=== PATIENT | female | born 1970 | race Two or more races ===

== ENCOUNTER 2020-04-18 09:40 | Outpatient (REF) | payer OTHER, SELFPAY | END 2020-04-18 09:41 | disposition home or self-care (01) | LOC: HO.LAB 09:40 | PROVIDERS: Visit Provider Internal Medicine | DX: Z20.828 Contact with and (suspected) exposure to other viral communicable diseases (principal) | CPT/HCPCS: C9803; U0003 ==

== ENCOUNTER 2020-06-21 11:12 | Emergency (ER) | payer OTHER, SELFPAY ==
[2020-06-21 11:17] VITALS: BP 153/69; PULSE 65; RESP 16; TEMP 36.4; O2SAT 99; BMI 29.2
--- NOTE | 2020-06-21 12:20 | ED.EYEPROB ---
HPI - Eye Problem General Chief complaint: Eye Problems Stated complaint: EYE ISSUE Time Seen by Provider: 06/21/20 12:07 Source: patient Mode of arrival: ambulatory Limitations: no limitations History of Present Illness HPI Narrative: Left upper eyelid swelling with redness since this morning. No eye injury or vision changes or feeling of foreign body sensation. Does not use contacts. Onset (ago): day(s) (1) Onset description: gradual Location: left eye Severity: mild Associated symptoms: none Treatments Prior to Arrival: none Related Data Home Medications Medication Instructions Recorded Confirmed ferrous sulfate 325 mg (65 mg 325 mg PO BID 05/27/20 05/27/20 iron) tablet norethindrone acetate 5 mg tablet 5 mg PO DAILY tab 05/27/20 05/27/20 simvastatin 20 mg tablet 20 mg PO QPM 05/27/20 05/27/20 Previous Rx's Medication Instructions Recorded doxycycline monohydrate 100 mg PO BID 7 Days #14 cap 06/21/20 erythromycin 0.5 inch OPHTHALMIC (EYE) QID #3.5 06/21/20 g Allergies Allergy/AdvReac Type Severity Reaction Status Date / Time No Known Allergies Allergy Verified 05/31/20 16:54 Review of Systems Review of Systems: Constitutional: No Weight loss, No Fever, No Chills, No Night Sweats, No Fatigue, No Malaise ENT/Mouth: No Hearing loss, No Ear Pain, No Nasal Congestion, No Sinus Pain, No Hoarseness, No sore throat, No Rhinorrhea, No Swallowing Difficulty Eyes: No Eye Pain, positive Swelling, No Redness, No Foreign Body, No Discharge, No Vision Changes Cardiovascular: Negative Respiratory: Negative Gastrointestinal: Negative Genitourinary: Negative Musculoskeletal: Negative Skin: No Skin Lesions, No rash Neuro: No Weakness, No Numbness, No Paresthesias, No Loss of Consciousness, No Dizziness, No Headache Psych: Negative Heme/Lymph: No Bruising, No Bleeding,No Lymphadenopathy Endocrine: No Polyuria, No Polydipsia, No Temperature Intolerance Yes all other systems are reviewed and are negative [facility] Past Medical History Medical History (Updated 06/21/20 @ 12:36 by Robert Carlson NP) Anemia Obesity (BMI 30-39.9) Pure hypercholesterolemia Uterus fibroma Surgical History (Updated 05/31/20 @ 17:01 by Ivan Arrington MD) History of mammogram Status post myomectomy (~2004) Social History Social History Alcohol intake: never Smoking Status: Never smoker Advance Directives: No Advance Directives Information Provided: No Physical Exam Vital Signs: Vital Signs: Last Vital Signs Temp 97.6 F 06/21/20 11:17 Pulse 65 06/21/20 11:17 Resp 16 06/21/20 11:17 BP 153/69 H 06/21/20 11:17 Pulse Ox 99 06/21/20 11:17 Body Mass Index 29.2 Reviewed Const: General: healthy appearing HENMT: Head: Yes normal to inspection Ears: hearing grossly normal bilaterally Eyes: Eyelids: Yes eyelid abnormality (Left upper eyelid with external stye. Slight erythema to the lid line. ) Conjunctivae: conjunctivae normal (EOM within normal limits.) Sclerae: sclerae normal Corneas: corneas normal Pupils: Equal, round and reactive pupils present EOM: EOMs intact bilaterally Direct Ophthalmoscopy: normal light reflex Neuro: Cranial nerves: Yes Equal, round and reactive pupils present Discharge Plan Discharge Clinical Impression: External hordeolum Qualifiers: Laterality: left Eyelid: upper Qualified Code(s): H00.014 - Hordeolum externum left upper eyelid Patient Disposition: Home, Self-Care Additional Instructions: Warm compresses Taking medication prescribed Return if any concerns or worsening symptoms Follow up with primary care in 1 week Thank you Prescriptions: New doxycycline monohydrate 100 mg capsule 100 mg PO BID 7 Days Qty: 14 RF: 0 erythromycin 5 mg/gram (0.5 %) ointment 0.5 inch ophthalmic (eye) QID Qty: 3.5 RF: 0 No Action simvastatin 20 mg tablet 20 mg PO QPM RF: 0 ferrous sulfate 325 mg (65 mg iron) tablet 325 mg PO BID RF: 0 norethindrone acetate 5 mg tablet 5 mg PO DAILY RF: 0 Referrals: Ivan Arrington MD [Primary Care Provider] - 1 week
== END 2020-06-21 12:58 | disposition home or self-care (01) ==
PROVIDERS: Emergency Provider Emergency Medicine; PCP Internal Medicine
DX: H00.014 Hordeolum externum left upper eyelid (principal)
CPT/HCPCS: 99283

== ENCOUNTER 2020-09-09 07:17 | Emergency (ER) | payer OTHER, SELFPAY ==
[2020-09-09 08:20] VITALS: BP 160/90; PULSE 66; RESP 18; TEMP 36.2; O2SAT 100; BMI 29.2
--- NOTE | 2020-09-09 08:29 | PC.NURSE ---
Pt LS CTA bilaterally, reports seasonal allergies, denies recent sick contact, denies COVID vaccinations, has not been tested since JUN. NAD noted. Awaiting primary eval at this time.
[2020-09-09 08:32] VITALS: O2SAT 100
[2020-09-09 08:35] VITALS: BP 150/99; PULSE 56; RESP 17; TEMP 37.2; O2SAT 100
--- NOTE | 2020-09-09 09:37 | ED_ITS ---
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 She denies fever, chills, cough, chest pain, shortness of breath, headache, sinus pain, nausea, vomiting, diarrhea. She has taken Robitussin with some relief of her symptoms. Related Data Home Medications Medication Instructions Recorded Confirmed ferrous sulfate 325 mg (65 mg 325 mg PO BID 05/27/20 05/27/20 iron) tablet norethindrone acetate 5 mg tablet 5 mg PO DAILY tab 05/27/20 05/27/20 simvastatin 20 mg tablet 20 mg PO QPM 05/27/20 05/27/20 Previous Rx's Medication Instructions Recorded doxycycline monohydrate 100 mg PO BID 7 Days #14 cap 06/21/20 erythromycin 0.5 inch OPHTHALMIC (EYE) QID #3.5 06/21/20 g Allergies Allergy/AdvReac Type Severity Reaction Status Date / Time No Known Allergies Allergy Verified 05/31/20 16:54 Review of Systems Review of Systems: Yes all other systems are reviewed and are negative [facility] Past Medical History Medical History Anemia Obesity (BMI 30-39.9) Pure hypercholesterolemia Uterus fibroma Surgical History History of mammogram Status post myomectomy (~2004) Social History Social History Alcohol intake: never Smoking Status: Never smoker Use of substances other than those prescribed or required for medical reasons: No Advance Directives: No Advance Directives Information Provided: No Physical Exam Vital Signs: Vital Signs: Last Vital Signs Temp 99.0 F 09/09/20 08:35 Pulse 56 09/09/20 08:35 Resp 17 09/09/20 08:35 BP 150/99 H 09/09/20 08:35 Pulse Ox 100 09/09/20 08:35 Body Mass Index 29.2 Const: General: cooperative, healthy appearing and comfortable Nutritional Appearance: overweight Orientation/consciousness: patient oriented x3 Limitations: language barrier (Primary Montessori Teacher used) HENMT: Head: Yes normal to inspection, Yes normocephalic and Yes atraumatic Ears: hearing grossly normal bilaterally General nose exam: Normal external nose present Face and sinus: Yes normal facial exam Mouth: Normal oral and palatal mucosa present, oropharynx normal and moist mucous membranes Throat: Yes posterior oropharynx abnormal (Erythematous), No uvula laterally displaced, No uvular edema and No cobblestoning Eyes: General: appearance normal, both eyes and all related structures Resp: Effort & Inspection: normal respiratory effort and able to speak in complete sentences Auscultation: clear to auscultation bilaterally Cardio: Rate: regular rate Rhythm: regular rhythm Skin: General skin exam: no rashes or lesions noted Neuro: General: patient oriented x3 Course Course Course Narrative: 49-year-old female with past medical history of HLD and anemia reports 2 days of dry cough, no other symptoms reported. Vital signs stable. 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 Will do rapid test, if patient is positive, she knows to take 10 days of work and she can come back to picker a note to reflect this. MDM - URI/Sore Throat Medical Records Attestation: I reviewed the patient's medical records. Lab Data Attestation: I reviewed the patient's lab results. Labs: Lab Results 09/09/20 Range/Units 09:55 COVID-19 (VIVI) Negative (Negative) COVID-19 Clin Com See Note Discharge Plan Discharge Clinical Impression: Elevated blood pressure reading Upper respiratory infection Qualifiers: URI type: unspecified viral URI Qualified Code(s): J06.9 - Acute upper respiratory infection, unspecified Patient Disposition: Home, Self-Care Instructions: COVID-19 (Coronavirus Disease 2019) (ED) Additional Instructions: Your blood pressure was elevated today, 150/99 then 160/90. As you are not on any hypertension medications are do not have a hypertension diagnosis, please follow-up with your PCP so they may investigate this further and determine if you need to initiate hypertension medications. You were tested for COVID today, if it is positive, I will write you a note for 10 days off work as you need to quarantine for 10 days. If it is negative in you are feeling better, you may return to work. Please continue to use the Robitussin as you have been using, hot tea with honey will also help soothe her throat. As discussed, if he develops a fever you cannot control with Tylenol and Motrin, developed chest pain or shortness of breath, please report back to the ER or seek emergent medical care. Prescriptions: No Action doxycycline monohydrate 100 mg capsule 100 mg PO BID 7 Days Qty: 14 RF: 0 erythromycin 5 mg/gram (0.5 %) ointment 0.5 inch ophthalmic (eye) QID Qty: 3.5 RF: 0 simvastatin 20 mg tablet 20 mg PO QPM RF: 0 ferrous sulfate 325 mg (65 mg iron) tablet 325 mg PO BID RF: 0 norethindrone acetate 5 mg tablet 5 mg PO DAILY RF: 0 Referrals: Ivan Arrington MD [Primary Care Provider] - 10 days (elevated blood pressure reading in ED without hypertension diagnosis, needs follow up) Interventions: ED Discharge Assessment Last Done: 09/09/20 09:54 Discharge Date/Time: 09/09/20 09:57 Print Language: Greenlandic
[2020-09-09 10:20] LABS: COVID-19 Test Negative (Negative)
== END 2020-09-09 09:57 | disposition home or self-care (01) ==
PROVIDERS: Physician Assistant; Emergency Provider Emergency Medicine Emergency Medical Services; PCP Internal Medicine
DX: J06.9 Acute upper respiratory infection, unspecified (principal); Z20.822 Contact with and (suspected) exposure to COVID-19; J02.9 Acute pharyngitis, unspecified; R03.0 Elevated blood-pressure reading, without diagnosis of hypertension; E78.5 Hyperlipidemia, unspecified; D64.9 Anemia, unspecified; Z79.02 Long term (current) use of antithrombotics/antiplatelets
CPT/HCPCS: 36415; 87635; 99283; 99285

== ENCOUNTER 2020-09-15 10:59 | Outpatient (REF) | payer OTHER, SELFPAY ==
[2020-09-15 11:53] LABS: MANUAL DIFF FLAG NO
[2020-09-15 11:59] LABS: Glucose Urine UA NEG (NEG); Leukocyte Esterase Urine TRACE (NEG); Nitrite Urine NEG (NEG); PH 5.5 (5.0-8.0); Specific Gravity - Urine 1.025 (1.005-1.025); UACC Culture Trigger YES; Urine Blood 2+ (NEG); Urine Ketones NEG (NEG); Urine Protein NEG (NEG-TRACE)
[2020-09-15 12:04] LABS: Appearance Urine CLEAR; Basophils Percent Auto 0.4 % (0-2); Color Urine YELLOW; Eosinophils Absolute Auto 0.1 X10*3/uL (0.0-0.4); Hematocrit 31.7 % (37-47); Hemoglobin 9.1 g/dl (12.0-16.0); Imm Gran Abs Auto 0.02 X10*3/uL (0.00-0.03); Imm Gran Pct Auto 0.3 % (0.0-0.4); Lymphocytes Percent Auto 26.8 % (20-40); Mean Corpuscular HGB Conc 28.7 g/dl (31.0-35.0); Mean Corpuscular Volume 69.8 fL (80-98); Mean Platelet Volume 10.8 fL (9.4-12.3); Monocytes Absolute Auto 0.4 X10*3/uL (0.1-1.2); Monocytes Percent Auto 5.6 % (2-11); Neutrophils Absolute Auto 4.8 X10*3/uL (2.0-8.3); Neutrophils Percent Auto 65.9 % (45-73); Platelet Count 294 X10*3/uL (160-400); Red Blood Count 4.54 X10*6/uL (4.20-5.50); Red Cell Distribution Width 17.9 % (11.0-16.0); White Blood Count 7.3 X10*3/uL (4.8-10.8)
[2020-09-15 12:33] LABS: Bacteria Urine TRACE /LPF; Squamous Epithelial Cell Urine 4+ /LPF
[2020-09-15 12:36] LABS: TSH reflex Free T4 1.47 uIU/mL (0.32-4.0)
[2020-09-15 12:39] LABS: Alanine Aminotransferase 8 U/L (0-31); Albumin Level 4.6 g/dL (3.5-5.0); Alkaline Phosphatase 69 U/L (39-117); Anion Gap 12 (12-20); Aspartate Amino Transferase 15 U/L (5-31); Bilirubin Total 0.5 mg/dL (0.0-1.0); Blood Urea Nitrogen 15 mg/dL (9-16); Calcium 9.5 mg/dL (8.4-10.2); Carbon Dioxide 24 mmol/L (22-29); Chloride 105 mmol/L (96-108); Cholesterol 238 mg/dL; Estimated Glomerular Filt Rate > 60; Glucose Fasting 87 mg/dL (60-99); HDL Cholesterol 38 mg/dL; Iron 27 mcg/dL (30-160); LDL Cholesterol Calculated 178 mg/dl; Potassium 4.6 mmol/L (3.3-5.1); Sodium 136 mmol/L (135-145); Total Protein 7.9 g/dL (6.5-8.0); Triglycerides 111 mg/dL
[2020-09-15 12:56] LABS: Percent Iron Saturation 5 % (15-50); Total Iron Binding Capacity 560 mcg/dL (228-428); Unsaturated Iron Binding 533 ug/dL
== END 2020-09-15 11:00 | disposition home or self-care (01) ==
LOC: HO.LAB 10:59
PROVIDERS: PCP Internal Medicine; Visit Provider Internal Medicine
DX: D64.9 Anemia, unspecified (principal); E78.00 Pure hypercholesterolemia, unspecified; E66.9 Obesity, unspecified
CPT/HCPCS: 36415; 80053; 80061; 81001; 81003; 83540; 84443; 85025; 87086

== ENCOUNTER 2021-05-13 12:28 | Emergency (ER) | payer OTHER, SELFPAY ==
[2021-05-13 12:45] VITALS: BP 193/86; PULSE 61; RESP 19; TEMP 36.6; O2SAT 100; BMI 29.2
[2021-05-13 19:38] LABS: COVID-19 Test Positive (Negative)
--- NOTE | 2021-05-13 19:46 | ED_ITS ---
HPI - URI/Sore Throat General Chief Complaint: Upper Respiratory Symptoms Stated Complaint: flu like symptoms Time Seen by Provider: 05/13/21 19:46 Source: patient Mode of arrival: ambulatory Limitations: no limitations History of Present Illness HPI Narrative: 50-year-old female with a history of hypercholesterolemia who presents to the ER with cough and congestion for the last few days. She lives home alone and has had no known sick contacts for COVID. She is fully vaccinated but now has not gotten her booster yet. She has a dry cough with no production of phlegm. She is not short of breath or dyspneic with exertion. She has no chest pain. She has been taking Robitussin [id number] for this with some improvement. She has no fevers. She reports some nasal congestion and postnasal drip but no sore throat. She has been eating and drinking normally. MD elicited complaint: cough and nasal congestion Onset (ago): day(s) (3) Consistency: intermittent Able to tolerate fluids by mouth: Yes Exacerbating factors: nothing Relieving factors: nothing Associated symptoms: nasal congestion and cough Treatments prior to arrival: none Related Data Home Medications Medication Instructions Recorded Confirmed norethindrone acetate 5 mg tablet 5 mg PO DAILY tab 05/27/20 12/16/20 Previous Rx's Medication Instructions Recorded simvastatin 20 mg tablet 20 mg PO QPM 90 Days #90 tab 01/20/21 ferrous sulfate 325 mg (65 mg 325 mg PO BID #60 tab 02/18/21 iron) tablet Allergies Allergy/AdvReac Type Severity Reaction Status Date / Time No Known Allergies Allergy Verified 12/16/20 12:55 Review of Systems Review of Systems: Constitutional: No Fever, No Chills ENT/Mouth: No sore throat, + Rhinorrhea, No Swallowing Difficulty Cardiovascular: No Chest Pain, No SOB, No Edema Respiratory: + Cough, No Sputum, No Wheezing, No dyspnea Gastrointestinal: No Nausea, No Vomiting, No Diarrhea, No abdominal Pain Musculoskeletal: No joint pain, No Myalgias Skin: No Skin Lesions, No rash Neuro: No Weakness, No Dizziness, + Headache Psych: + Anxiety/Panic Heme/Lymph: No Lymphadenopathy PMFSH Past Medical History Medical History Anemia Obesity (BMI 30-39.9) Pure hypercholesterolemia Uterus fibroma Surgical History History of mammogram Status post myomectomy (~2004) Family History Family History Mother Heart problem Father Heart problem Heart attack Social History Social History Housing: Apartment Alcohol intake: never Patient Tobacco Use Status: Never used Tobacco Second Hand Smoke Exposure: Yes Advance Directives: No Patient : No service: No Current occupational status: employed 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 Oriented X3. No acute distress. Eyes: Pupils equal, round and reactive to light. ENT: Pharynx normal. No tonsillar swelling or exudate Neck: Normal inspection. Neck supple. CVS: Normal heart rate and rhythm. Pulses normal. Respiratory: No respiratory distress. Breath sounds normal. Skin: Skin warm and dry. Normal skin color. Normal skin turgor. No rashes. Extremities: No lower extremity edema. NO calf tenderness Neuro: Oriented X 3. No motor deficit. No sensory deficit. Course Course Course Narrative: 50-year-old female with history of high cholesterol presents to the ER with cough and nasal congestion for the last few days. She is nontoxic appearing and is in no distress. Her sats are 98% on room air she is in no respiratory distress. Her lungs are clear. She is anxious and nervous. Her COVID-19 test is positive. You therapeutic support staff to discuss the results, management and warning signs return to the ER. Unfortunately she does not qualify for monoclonal antibodies at this time. She is hypertensive here but has no known diagnosis of hypertension. She has been taking [id number] cold and flu medications that have been known to cause high blood pressure transiently. She has no chest pain or severe headache at this time to rise concern for hypertensive emergency. Repeat blood pressure improved 180/100 and again she is asymptomatic. At this time she is stable for discharge home with supportive care for COVID as well as outpatient follow-up with her PCP. MDM - URI/Sore Throat Lab Data Labs: Lab Results 05/13/21 Range/Units 19:16 COVID-19 (VIVI) Positive A (Negative) COVID-19 Clin Com See Note Discharge Plan Discharge Clinical Impression: COVID-19 Hypertension Qualifiers: Hypertension type: unspecified Qualified Code(s): I10 - Essential (primary) hypertension Patient Disposition: Home, Self-Care Instructions: Covid-19 Viral Syndrome and Novel Coronavirus (ED) Hey/Ath Additional Instructions: You were found to be COVID-19 POSITIVE today. Your exam and oxygen levels were normal. Rest. Drink plenty of fluids. Do not go out in public for the next 10 days. Take over the counter cold/flu medications as needed for your symptoms. Take Tylenol and/or Motrin as needed for fevers and body aches. Follow up with your doctor this week. Your BP was significantly elevated today 180/100. This could be due to many things including your acute illness, being nervous about being in the hospital as well as a side effect of the cold medication you have been taking. Recommend Coricidin? HBP If you shortness of breath worsens , if you develop difficulty breathing or any other concerning symptom come back to the ER for further evaluation. Se encontr? que hoy es COVID-19 POSITIVO. Torres examen y los niveles de ox?hanna fueron normales. Descansar. Beber mucho l?quido. No salgas en p?blico pina los pr?ximos 10 d?as. [place] medicamentos de venta kapil para el resfriado / la gripe seg?n sea necesario para daniela s?ntomas. [place] Tylenol y / o Motrin seg?n sea necesario para la fiebre y los cristopher corporales. Chandrika un seguimiento con torres m?dico esta semana. Torres PA se elev? significativamente hoy 180/100. [place] podr?a deberse a muchas cosas, incluida torres enfermedad aguda, estar nervioso por estar en el hospital y un efecto secundario de la medicaci?n para el resfriado que [place] estado tomando. Si torres dificultad para respirar empeora, si presenta dificultad para respirar o cualquier otro s?ntoma preocupante, regrese a la gordo de emergencias para rebecca evaluaci?n adicional. Prescriptions: No Action simvastatin 20 mg tablet 20 mg PO QPM 90 Days Qty: 90 RF: 0 ferrous sulfate 325 mg (65 mg iron) tablet 325 mg PO BID Qty: 60 RF: 3 norethindrone acetate 5 mg tablet 5 mg PO DAILY RF: 0 Referrals: Ivan Arrington MD [Primary Care Provider] - 1 week (COVID and HTN) Stand Alone Forms: Work/School Release Print Language: Indonesian
[2021-05-13 20:24] VITALS: BP 158/93; PULSE 55; RESP 16; TEMP 37; O2SAT 99
== END 2021-05-13 20:39 | disposition home or self-care (01) ==
LOC: HO.ED 19:52
PROVIDERS: Emergency Provider Emergency Medicine Emergency Medical Services; PCP Internal Medicine
DX: U07.1 COVID-19 (principal); R05.9 Cough, unspecified; Z79.899 Other long term (current) drug therapy
CPT/HCPCS: 36415; 87635; 99283; 99284

== ENCOUNTER 2021-06-14 06:21 | Outpatient (REF) | payer OTHER, SELFPAY ==
[2021-06-14 06:43] LABS: MANUAL DIFF FLAG NO
[2021-06-14 07:36] LABS: Estimated Average Glucose 85 mg/dL; Hemoglobin A1c % 4.6 %
[2021-06-14 07:41] LABS: Basophils Percent Auto 0.5 % (0-2); Hematocrit 27.4 % (37.0-47.0); Imm Gran Abs Auto 0.02 X10*3/uL (0.00-0.03); Imm Gran Pct Auto 0.5 % (0.0-0.4); Lymphocytes Absolute Auto 1.3 X10*3/uL (1.2-4.9); Lymphocytes Percent Auto 32.4 % (20-40); Mean Corpuscular HGB Conc 29.2 g/dl (31.0-35.0); Mean Corpuscular Hemoglobin 24.2 pg (27.0-33.0); Mean Platelet Volume 10.5 fL (9.4-12.3); Monocytes Absolute Auto 0.4 X10*3/uL (0.1-1.2); Monocytes Percent Auto 8.7 % (2-11); Neutrophils Absolute Auto 2.4 x10*3/uL (2.0-8.3); Neutrophils Percent Auto 56.9 % (45-73); Platelet Count 246 X10*3/uL (160-400); Red Cell Distribution Width 17.5 % (11.0-16.0); White Blood Count 4.1 X10*3/uL (4.8-10.8)
[2021-06-14 07:52] LABS: Alanine Aminotransferase 10 U/L (0-31); Albumin Level 4.1 g/dL (3.5-5.0); Alkaline Phosphatase 52 U/L (39-117); Anion Gap 11 (12-20); Aspartate Amino Transferase 18 U/L (5-31); Bilirubin Total 0.3 mg/dL (0.0-1.0); Blood Urea Nitrogen 15 mg/dL (9-16); Calcium 9.4 mg/dL (8.4-10.2); Carbon Dioxide 25 mmol/L (22-29); Chloride 107 mmol/L (96-108); Cholesterol 140 mg/dL; Estimated Glomerular Filt Rate > 60; Glucose Fasting 85 mg/dL (60-99); HDL Cholesterol 29 mg/dL; LDL Cholesterol Calculated 83 mg/dl; Potassium 4.5 mmol/L (3.3-5.1); Sodium 138 mmol/L (135-145); Total Protein 6.8 g/dL (6.5-8.0); Triglycerides 140 mg/dL
[2021-06-14 08:16] LABS: TSH reflex Free T4 2.16 uIU/mL (0.32-4.0)
[2021-06-14 08:32] LABS: Folate 16.9 ng/mL (> or = 4.0); Vitamin B12 243 pg/mL (200-900)
[2021-06-18 13:46] LABS: Vitamin D 25-OH, D2 <4 ng/mL; Vitamin D 25-OH, D3 21 ng/mL; Vitamin D 25-OH, Total 21 ng/mL (30-100)
== END 2021-06-14 06:22 | disposition home or self-care (01) ==
LOC: HO.LAB 06:21
PROVIDERS: PCP Internal Medicine; Visit Provider Nurse Practitioner Acute Care
DX: E66.9 Obesity, unspecified (principal); I10 Essential (primary) hypertension
CPT/HCPCS: 36415; 80053; 80061; 82306; 82607; 82746; 83036; 84443; 85025

== ENCOUNTER → 2021-08-05 11:34 | Outpatient (BNVA) | payer OTHER, SELFPAY | PROVIDERS: PCP Internal Medicine; Referring Provider Internal Medicine; Visit Provider Nurse Practitioner | DX: Z12.11 Encounter for screening for malignant neoplasm of colon (principal) ==

== ENCOUNTER 2022-07-01 17:24 | Emergency (ER) | payer OTHER, SELFPAY ==
--- NOTE | ~2022-07-01 | CT_ITS ---
EXAMINATION: CT HEAD WITHOUT CONTRAST CLINICAL INFORMATION: Headache high blood pressure COMPARISON: None TECHNIQUE: Contiguous axial imaging was performed from the skull base to vertex without intravenous administration of contrast. This CT examination was performed using dose optimization techniques as appropriate, variously including the following: *Automated exposure control *Adjustment of mA and/or kV according to patient size (this includes techniques or standardized protocols for targeted exams where dose is matched to indication/reason for exam; i.e. extremities or head) *Use of iterative reconstruction technique DLP: 623 mGy-cm FINDINGS: There is no evidence of acute intracranial hemorrhage or territorial infarction. No abnormal mass effect or midline shift is seen. Wells to white matter differentiation is well preserved. No extra-axial fluid collections are identified. The ventricles are normal in size. No abnormal attenuation in the brain parenchyma. No acute calvarial fracture.. Paranasal sinuses and mastoid air cells are well-aerated. CT/CT head/brain wo IV con IMPRESSION: No CT evidence of acute intracranial process.
--- NOTE | ~2022-07-01 | XR_ITS ---
EXAMINATION: XR CHEST CLINICAL INFORMATION: High blood pressure COMPARISON: X-ray 04/06/2016 TECHNIQUE: 2 views of the chest were obtained. FINDINGS: Cardiomediastinal size is within normal limits, allowing for position/technique. Slight elevation right hemidiaphragm. Lungs are clear. No focal consolidation, effusion, edema or pneumothorax. Thoracic spine degeneration. XR/XR chest 2V IMPRESSION: No acute pulmonary process seen.
[2022-07-01 18:25] VITALS: BP 177/92; PULSE 70; RESP 18; TEMP 36.6; O2SAT 100; BMI 30.9
--- NOTE | 2022-07-01 18:28 | ED.HA ---
HPI - Headache General Chief Complaint: Headache <SHANTELL Metzger - Last Filed: 07/01/22 18:32> Stated Complaint: Headache <SHANTELL Metzger - Last Filed: 07/01/22 18:32> Time Seen by Provider: 07/02/22 00:57 <SHANTELL Metzger - Last Filed: 07/01/22 18:32> Source: patient, family, RN notes reviewed and old records reviewed <Viktor Waite - Last Filed: 07/02/22 01:35> Mode of arrival: ambulatory <Viktor Waite - Last Filed: 07/02/22 01:35> Limitations: no limitations (Patient was offered interpreting services but declined) <Viktor Waite - Last Filed: 07/02/22 01:35> History of Present Illness HPI Narrative: 51-year-old female presents for evaluation of headache. She reports her headache started 2 days ago. She states that she feels pain constantly in the center of her forehead and in the back of her head. The pain is at worst a 10. She took some ibuprofen with minimal relief She denies any visual changes, nausea, vomiting, lightheadedness or dizziness. Denies any trauma to the head or neck. Denies any fevers, chills or neck pain. She reports that she started a new medication which she shows me to be hydrochlorothiazide 12.5 mg on the day that her headache started She is unsure if this is related. She denies any history of migraine headaches <Viktor Waite - Last Filed: 07/02/22 01:35> Related Data Home Medications: Home Medications Medication Instructions Recorded Confirmed norethindrone acetate 5 mg tablet 5 mg PO DAILY 05/27/20 06/15/21 Previous Rx's Medication Instructions Recorded ferrous sulfate 325 mg (65 mg 325 mg PO BID #60 tabs 06/01/21 iron) tablet simvastatin 20 mg tablet 20 mg PO QPM 90 days #90 tabs 06/01/21 albuterol sulfate 90 mcg/actuation 2 inh inhalation Q4-6H PRN 06/15/21 breath activated powder inhaler shortness of breath or wheezing #1 ea benzonatate 100 mg capsule 100 mg PO BID PRN cough #30 caps 06/15/21 cholecalciferol (vitamin D3) 50 50 mcg PO DAILY #30 caps 06/18/21 mcg (2,000 unit) capsule peg 3350-electrolytes 236 240 ml PO Q10M 1 day #4,000 mL 08/05/21 gram-22.74 gram-6.74 gram-5.86 gram solution (Golytely) hydrochlorothiazide 12.5 mg tablet 12.5 mg PO BID #60 tabs 02/17/22 nyrgixtegv-qzditvpauypuh-qgulejzc 1 cap PO TID PRN headache #15 caps 07/02/22 50 mg-300 mg-40 mg capsule (Fioricet) <SHANTELL Metzger - Last Filed: 07/01/22 18:32> Allergies/Adverse Reactions: Allergies Allergy/AdvReac Type Severity Reaction Status Date / Time No Known Allergies Allergy Verified 07/01/22 18:25 <SHANTELL Metzger - Last Filed: 07/01/22 18:32> Review of Systems Constitutional: Constitutional: Reports as per HPI, Denies chills, Denies fatigue and Reports headache(s) <Viktor Waite - Last Filed: 07/02/22 01:35> ENT: Reports headache(s) <Viktor Waite - Last Filed: 07/02/22 01:35> Cardiovascular: Cardiovascular: Denies chest pain and Denies dyspnea <Viktor Waite - Last Filed: 07/02/22 01:35> Respiratory: Respiratory: Denies cough and Denies dyspnea <Viktor Waite - Last Filed: 07/02/22 01:35> Gastrointestinal: Gastrointestinal: Denies abdominal pain, Denies constipation and Denies vomiting <Viktor Waite - Last Filed: 07/02/22 01:35> Genitourinary: Genitourinary: Denies dysuria <Viktor Waite - Last Filed: 07/02/22 01:35> Neurologic: Denies Abnormal speech present and Reports headache(s) <Viktor Waite - Last Filed: 07/02/22 01:35> Endocrine: Endocrine: Denies fatigue <Viktor Waite - Last Filed: 07/02/22 01:35> [facility] Past Medical History Attestation statement: The following information was validated with the patient. <Viktor Vasquez Last Filed: 07/02/22 01:35> Source: old records reviewed and nursing notes reviewed <Viktor Waite - Last Filed: 07/02/22 01:35> Medical History: Medical History Anemia Obesity (BMI 30-39.9) Pure hypercholesterolemia Uterus fibroma <SHANTELL Metzger - Last Filed: 07/01/22 18:32> Surgical History: Surgical History History of mammogram Status post myomectomy (~2004) <SHANTELL Metzger - Last Filed: 07/01/22 18:32> Family History Family History: Family History Mother Heart problem Father Heart problem Heart attack <SHANTELL Metzger - Last Filed: 07/01/22 18:32> Social History Social History: Social History Housing: Apartment Alcohol intake: never Patient Tobacco Use Status: Never used Tobacco e-Cigarette/Vaping Use: Never Used Second Hand Smoke Exposure: Yes Advance Directives: No Advance Directives Information Provided: No service: No Current occupational status: employed 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 Cognitive needs: No Hearing needs: No Vision needs: No <SHANTELL Metzger - Last Filed: 07/01/22 18:32> Physical Exam Vital Signs: Vital Signs: Last Vital Signs Temp 97.2 F 07/01/22 23:42 Pulse 100 07/01/22 23:42 Resp 18 07/01/22 23:42 BP 178/101 H 07/01/22 23:42 Pulse Ox 100 07/01/22 23:42 O2 Del Method 07/01/22 23:42 BMI result Body Mass Index 30.9 <SHANTELL Metzger - Last Filed: 07/01/22 18:32> Vital Signs: Last Vital Signs Temp 97.2 F 07/01/22 23:42 Pulse 100 07/01/22 23:42 Resp 18 07/01/22 23:42 BP 178/101 H 07/01/22 23:42 Pulse Ox 100 07/01/22 23:42 O2 Del Method 07/01/22 23:42 BMI result Body Mass Index 30.9 < Last Filed: 07/02/22 01:35> Const: General: healthy appearing, comfortable, no acute distress and well developed < Last Filed: 07/02/22 01:35> Orientation/consciousness: patient oriented x3 < Last Filed: 07/02/22 01:35> HEENT: Head: Yes normocephalic, Yes atraumatic and No Temporal artery tenderness present < Last Filed: 07/02/22 01:35> Eyes: Eyelids: Yes eyelids normal < Last Filed: 07/02/22 01:35> Conjunctivae: conjunctivae normal < Last Filed: 07/02/22 01:35> Sclerae: sclerae normal < Last Filed: 07/02/22 01:35> Corneas: corneas normal < Last Filed: 07/02/22 01:35> Pupils: Equal, round and reactive pupils present and Pupil accommodation reflex normal < Last Filed: 07/02/22 01:35> EOM: EOMs intact bilaterally < Last Filed: 07/02/22 01:35> Neck: Neck: Yes full ROM, Yes no lymphadenopathy and Yes no meningeal signs < Last Filed: 07/02/22 01:35> Resp: Effort & Inspection: normal respiratory effort and able to speak in complete sentences < Last Filed: 07/02/22 01:35> Auscultation: clear to auscultation bilaterally < Last Filed: 07/02/22 01:35> Cardio: Rate: regular rate < Last Filed: 07/02/22 01:35> Rhythm: regular rhythm < Last Filed: 07/02/22 01:35> GI: Inspection: No Abdominal wall edema and No distended <Viktor OOverton - Last Filed: 07/02/22 01:35> Palpation (GI): Soft to palpation, nontender and no guarding <Viktor OOverton - Last Filed: 07/02/22 01:35> Neuro: General: patient oriented x3 and no meningeal signs <Viktor Overton - Last Filed: 07/02/22 01:35> Cranial nerves: Yes CN's II-XII intact bilaterally and Yes Equal, round and reactive pupils present <Viktor YeimiOverton - Last Filed: 07/02/22 01:35> Cognition (Neuro): normal cognition <Viktor OOverton - Last Filed: 07/02/22 01:35> Speech: No Abnormal speech present <Overton - Last Filed: 07/02/22 01:35> Motor exam (neuro): Pronator motor function not present <Viktor OPancho - Last Filed: 07/02/22 01:35> Coordination: [id number]-rq-qqkc test normal <Viktor YeimiPancho - Last Filed: 07/02/22 01:35> Romberg Test: Negative <Viktor O Last Filed: 07/02/22 01:35> Course Course Course Narrative: RME-18:30PM 51yoF HLD, was recently diagnosed with high blood pressure and started on hydrochlorothiazide on after she went to [facility] for headache and was noted to have high blood pressure was presenting to the ER with complaints of a headache to the frontal aspect of her head that radiates to the hospital aspect of her head. Reports that it makes her eyes water. Otherwise she denies any dizziness, change in vision, jaw pain, nausea/vomiting, paresthesias, weakness, chest pain or shortness of breath or any other symptoms complaints or concerns at this time Plan: Will obtain lab, , EKG, chest x-ray and CT scan of brain. To be sent to the waiting room to be evaluated in the ED. <SHANTELL Metzger - Last Filed: 07/01/22 18:32> Medical Decision Making Medical Decision Making MDM Narrative: 51-year-old female normal-appearing complains of headache x2 days. Her headache started today she started taking a new medication of hydrochlorothiazide. Is possible that her headaches related to this medication. She has no neurologic deficits. No tonsillar CT scan is normal per who does not lateralize, she has no temporal tenderness, less likely temporal arteritis. With the patient's son was with 2-[address] here so she will not be given a dose in the ER. she will follow-up with her primary doctor. The patient has no fevers, negative meningeal signs, no suspicion for infectious etiology or symptoms. <Viktor Waite - Last Filed: 07/02/22 01:35> Differential Diagnosis Acute headache Tension headache Cluster headache next item migraine headache Temporal arteritis Intracranial mass CVA less likely Intracranial hemorrhage Medication side effect <Viktor Waite - Last Filed: 07/02/22 01:35> Lab Data MDM Lab Attestation statement: I reviewed the patient's lab results. <Viktor Waite - Last Filed: 07/02/22 01:35> Result Diagrams: 07/01/22 19:09 07/01/22 19:09 <SHANTELL Metzger - Last Filed: 07/01/22 18:32> Labs: Lab Results 07/01/22 07/01/22 07/01/22 Range/Units 19:09 19:09 19:09 WBC 5.2 (4.8-10.8) X10*3/uL RBC 4.58 D (4.20-5.50) X10*6/uL Hgb 10.9 L D (12.0-16.0) g/dl Hct 35.7 L D (37.0-47.0) % MCV 77.9 L (80.0-98.0) fL MCH 23.8 L (27.0-33.0) pg MCHC 30.5 L (31.0-35.0) g/dl RDW 18.2 H (11.0-16.0) % Plt Count 233 (160-400) X10*3/uL MPV 9.7 (9.4-12.3) fL Immature Gran % (Auto) 0.2 (0.0-0.4) % Neut % (Auto) 51.7 (45-73) % Lymph % (Auto) 39.0 (20-40) % Faulk % (Auto) 7.7 (2-11) % Eos % (Auto) 0.8 (0-4) % Baso % (Auto) 0.6 (0-2) % Lymph # (Auto) 2.0 (1.2-4.9) X10*3/uL Faulk # (Auto) 0.4 (0.1-1.2) X10*3/uL Eos # (Auto) 0.0 (0.0-0.4) X10*3/uL Baso # (Auto) 0.0 (0.0-0.2) X10*3/uL Abs Immat Gran (auto) 0.01 (0.00-0.03) X10*3/uL Absolute Neuts (auto) 2.7 (2.0-8.3) x10*3/uL Absolute Nucleated RBC 0.000 (0.0-0.012) X10*3/uL Nucleated RBC % (auto) 0.0 (0.0-0.2) /100WBC PT 11.3 (10.0-13.1) SEC INR 1.0 (0.9-1.1) Sodium 139 (135-145) mmol/L Potassium 4.4 (3.3-5.1) mmol/L Chloride 103 (96-108) mmol/L Carbon Dioxide 26 (22-29) mmol/L Anion Gap 14 (12-20) BUN 22 H (9-16) mg/dL Creatinine 1.04 (0.5-1.4) mg/dL Estim Creat Clear Calc 65.4 Estimated GFR 56 Random Glucose 100 (60-115) mg/dL Calcium 9.9 (8.4-10.2) mg/dL Magnesium 1.7 (1.6-2.6) mg/dL Total Bilirubin 0.3 (0.0-1.0) mg/dL AST 30 (5-31) U/L ALT 34 H (0-31) U/L Alkaline Phosphatase 99 (39-117) U/L Total Protein 7.7 (6.5-8.0) g/dL Albumin 4.6 (3.5-5.0) g/dL Urine Color Urine Appearance Urine pH (5.0-9.0) Ur Specific [place] (1.005-1.025) Urine Protein (Neg-Trace) mg/dL Urine Glucose (UA) (Negative) mg/dL Urine Ketones (Negative) mg/dL Urine Blood (Negative) Urine Nitrite (Negative) Ur Leukocyte Esterase (Negative) Urine RBC (0-2) /HPF Urine WBC (0-5) /HPF Ur Squamous Epith Cells (0-2) /HPF Urine Bacteria (None Seen) Hyaline Casts (0-2) /LPF Influenza Type A (PCR) (Negative) Influenza Type B (PCR) (Negative) RSV RNA Qual (PCR) (Negative) SARS-CoV-2 RNA (RT-PCR) (Negative) 07/01/22 07/01/22 Range/Units 19:09 19:09 WBC (4.8-10.8) X10*3/uL RBC (4.20-5.50) X10*6/uL Hgb (12.0-16.0) g/dl Hct (37.0-47.0) % MCV (80.0-98.0) fL MCH (27.0-33.0) pg MCHC (31.0-35.0) g/dl RDW (11.0-16.0) % Plt Count (160-400) X10*3/uL MPV (9.4-12.3) fL Immature Gran % (Auto) (0.0-0.4) % Neut % (Auto) (45-73) % Lymph % (Auto) (20-40) % Faulk % (Auto) (2-11) % Eos % (Auto) (0-4) % Baso % (Auto) (0-2) % Lymph # (Auto) (1.2-4.9) X10*3/uL Faulk # (Auto) (0.1-1.2) X10*3/uL Eos # (Auto) (0.0-0.4) X10*3/uL Baso # (Auto) (0.0-0.2) X10*3/uL Abs Immat Gran (auto) (0.00-0.03) X10*3/uL Absolute Neuts (auto) (2.0-8.3) x10*3/uL Absolute Nucleated RBC (0.0-0.012) X10*3/uL Nucleated RBC % (auto) (0.0-0.2) /100WBC PT (10.0-13.1) SEC INR (0.9-1.1) Sodium (135-145) mmol/L Potassium (3.3-5.1) mmol/L Chloride (96-108) mmol/L Carbon Dioxide (22-29) mmol/L Anion Gap (12-20) BUN (9-16) mg/dL Creatinine (0.5-1.4) mg/dL Estim Creat Clear Calc Estimated GFR Random Glucose (60-115) mg/dL Calcium (8.4-10.2) mg/dL Magnesium (1.6-2.6) mg/dL Total Bilirubin (0.0-1.0) mg/dL AST (5-31) U/L ALT (0-31) U/L Alkaline Phosphatase (39-117) U/L Total Protein (6.5-8.0) g/dL Albumin (3.5-5.0) g/dL Urine Color Yellow Urine Appearance Clear Urine pH 6.0 (5.0-9.0) Ur Specific [place] 1.025 (1.005-1.025) Urine Protein Negative (Neg-Trace) mg/dL Urine Glucose (UA) Negative (Negative) mg/dL Urine Ketones Negative (Negative) mg/dL Urine Blood Negative (Negative) Urine Nitrite Negative (Negative) Ur Leukocyte Esterase Small (1+) H (Negative) Urine RBC 0-2 (0-2) /HPF Urine WBC 0-5 (0-5) /HPF Ur Squamous Epith Cells 0-2 (0-2) /HPF Urine Bacteria None Seen (None Seen) Hyaline Casts 0-2 (0-2) /LPF Influenza Type A (PCR) NEGATIVE (Negative) Influenza Type B (PCR) NEGATIVE (Negative) RSV RNA Qual (PCR) NEGATIVE (Negative) SARS-CoV-2 RNA (RT-PCR) NEGATIVE (Negative) <SHANTELL Metzger - Last Filed: 07/01/22 18:32> Lab Results 07/01/22 07/01/22 07/01/22 Range/Units 19:09 19:09 19:09 WBC 5.2 (4.8-10.8) X10*3/uL RBC 4.58 D (4.20-5.50) X10*6/uL Hgb 10.9 L D (12.0-16.0) g/dl Hct 35.7 L D (37.0-47.0) % MCV 77.9 L (80.0-98.0) fL MCH 23.8 L (27.0-33.0) pg MCHC 30.5 L (31.0-35.0) g/dl RDW 18.2 H (11.0-16.0) % Plt Count 233 (160-400) X10*3/uL MPV 9.7 (9.4-12.3) fL Immature Gran % (Auto) 0.2 (0.0-0.4) % Neut % (Auto) 51.7 (45-73) % Lymph % (Auto) 39.0 (20-40) % Faulk % (Auto) 7.7 (2-11) % Eos % (Auto) 0.8 (0-4) % Baso % (Auto) 0.6 (0-2) % Lymph # (Auto) 2.0 (1.2-4.9) X10*3/uL Faulk # (Auto) 0.4 (0.1-1.2) X10*3/uL Eos # (Auto) 0.0 (0.0-0.4) X10*3/uL Baso # (Auto) 0.0 (0.0-0.2) X10*3/uL Abs Immat Gran (auto) 0.01 (0.00-0.03) X10*3/uL Absolute Neuts (auto) 2.7 (2.0-8.3) x10*3/uL Absolute Nucleated RBC 0.000 (0.0-0.012) X10*3/uL Nucleated RBC % (auto) 0.0 (0.0-0.2) /100WBC PT 11.3 (10.0-13.1) SEC INR 1.0 (0.9-1.1) Sodium 139 (135-145) mmol/L Potassium 4.4 (3.3-5.1) mmol/L Chloride 103 (96-108) mmol/L Carbon Dioxide 26 (22-29) mmol/L Anion Gap 14 (12-20) BUN 22 H (9-16) mg/dL Creatinine 1.04 (0.5-1.4) mg/dL Estim Creat Clear Calc 65.4 Estimated GFR 56 Random Glucose 100 (60-115) mg/dL Calcium 9.9 (8.4-10.2) mg/dL Magnesium 1.7 (1.6-2.6) mg/dL Total Bilirubin 0.3 (0.0-1.0) mg/dL AST 30 (5-31) U/L ALT 34 H (0-31) U/L Alkaline Phosphatase 99 (39-117) U/L Total Protein 7.7 (6.5-8.0) g/dL Albumin 4.6 (3.5-5.0) g/dL Urine Color Urine Appearance Urine pH (5.0-9.0) Ur Specific [place] (1.005-1.025) Urine Protein (Neg-Trace) mg/dL Urine Glucose (UA) (Negative) mg/dL Urine Ketones (Negative) mg/dL Urine Blood (Negative) Urine Nitrite (Negative) Ur Leukocyte Esterase (Negative) Urine RBC (0-2) /HPF Urine WBC (0-5) /HPF Ur Squamous Epith Cells (0-2) /HPF Urine Bacteria (None Seen) Hyaline Casts (0-2) /LPF Influenza Type A (PCR) (Negative) Influenza Type B (PCR) (Negative) RSV RNA Qual (PCR) (Negative) SARS-CoV-2 RNA (RT-PCR) (Negative) 07/01/22 07/01/22 Range/Units 19:09 19:09 WBC (4.8-10.8) X10*3/uL RBC (4.20-5.50) X10*6/uL Hgb (12.0-16.0) g/dl Hct (37.0-47.0) % MCV (80.0-98.0) fL MCH (27.0-33.0) pg MCHC (31.0-35.0) g/dl RDW (11.0-16.0) % Plt Count (160-400) X10*3/uL MPV (9.4-12.3) fL Immature Gran % (Auto) (0.0-0.4) % Neut % (Auto) (45-73) % Lymph % (Auto) (20-40) % Faulk % (Auto) (2-11) % Eos % (Auto) (0-4) % Baso % (Auto) (0-2) % Lymph # (Auto) (1.2-4.9) X10*3/uL Faulk # (Auto) (0.1-1.2) X10*3/uL Eos # (Auto) (0.0-0.4) X10*3/uL Baso # (Auto) (0.0-0.2) X10*3/uL Abs Immat Gran (auto) (0.00-0.03) X10*3/uL Absolute Neuts (auto) (2.0-8.3) x10*3/uL Absolute Nucleated RBC (0.0-0.012) X10*3/uL Nucleated RBC % (auto) (0.0-0.2) /100WBC PT (10.0-13.1) SEC INR (0.9-1.1) Sodium (135-145) mmol/L Potassium (3.3-5.1) mmol/L Chloride (96-108) mmol/L Carbon Dioxide (22-29) mmol/L Anion Gap (12-20) BUN (9-16) mg/dL Creatinine (0.5-1.4) mg/dL Estim Creat Clear Calc Estimated GFR Random Glucose (60-115) mg/dL Calcium (8.4-10.2) mg/dL Magnesium (1.6-2.6) mg/dL Total Bilirubin (0.0-1.0) mg/dL AST (5-31) U/L ALT (0-31) U/L Alkaline Phosphatase (39-117) U/L Total Protein (6.5-8.0) g/dL Albumin (3.5-5.0) g/dL Urine Color Yellow Urine Appearance Clear Urine pH 6.0 (5.0-9.0) Ur Specific [place] 1.025 (1.005-1.025) Urine Protein Negative (Neg-Trace) mg/dL Urine Glucose (UA) Negative (Negative) mg/dL Urine Ketones Negative (Negative) mg/dL Urine Blood Negative (Negative) Urine Nitrite Negative (Negative) Ur Leukocyte Esterase Small (1+) H (Negative) Urine RBC 0-2 (0-2) /HPF Urine WBC 0-5 (0-5) /HPF Ur Squamous Epith Cells 0-2 (0-2) /HPF Urine Bacteria None Seen (None Seen) Hyaline Casts 0-2 (0-2) /LPF Influenza Type A (PCR) NEGATIVE (Negative) Influenza Type B (PCR) NEGATIVE (Negative) RSV RNA Qual (PCR) NEGATIVE (Negative) SARS-CoV-2 RNA (RT-PCR) NEGATIVE (Negative) <Viktor Waite - Last Filed: 07/02/22 01:35> Radiology Impression Discussion of test interpretation with radiology: I have reviewed the radiologist's reading. <Viktor Waite - Last Filed: 07/02/22 01:35> Discharge Plan Discharge Clinical Impression: Acute headache <SHANTELL Metzger - Last Filed: 07/01/22 18:32> Patient Disposition: Home, Self-Care <SHANTELL Metzger - Last Filed: 07/01/22 18:32> Instructions: Acute Headache (ED) <SHANTELL Metzger - Last Filed: 07/01/22 18:32> Additional Instructions: Your workup in the emergency department was reassuring. You may take Fioricet as needed for any further headaches. It is possible that her headaches are related to the medication he started on the day of your headache. Talked to your primary doctor about this. Your CT scan was reassuring, yearly blood work was within normal limits <SHANTELL Metzger - Last Filed: 07/01/22 18:32> Prescriptions: New tjdllxihzm-ervbufzzgnllb-epfm [Fioricet] 50-300-40 mg capsule 1 cap PO TID PRN (Reason: headache) Qty: 15 0RF No Action cholecalciferol (vitamin D3) 50 mcg (2,000 unit) capsule 50 mcg PO DAILY Qty: 30 0RF hydrochlorothiazide 12.5 mg tablet 12.5 mg PO BID Qty: 60 0RF norethindrone acetate 5 mg tablet 5 mg PO DAILY simvastatin 20 mg tablet 20 mg PO QPM 90 Days Qty: 90 0RF ferrous sulfate 325 mg (65 mg iron) tablet 325 mg PO BID Qty: 60 3RF benzonatate 100 mg capsule 100 mg PO BID PRN (Reason: cough) Qty: 30 0RF albuterol sulfate 90 mcg/actuation aerosol powdr breath activated 2 inh inhalation Q4-6H PRN (Reason: shortness of breath or wheezing) Qty: 1 0RF peg 3350-electrolytes [Golytely] 236-22.74-6.74 -5.86 gram recon soln 240 ml PO Q10M 1 Days Qty: 4000 0RF Rx Instructions: until fecal effluent is clear; do not exceed a total volume of 2,000 mL <SHANTELL Metzger - Last Filed: 07/01/22 18:32>
--- NOTE | 2022-07-01 18:29 | ECG_ITS ---
Test Reason : headache/ high bp Blood Pressure : / mmHG Vent. Rate : 059 BPM Atrial Rate : 059 BPM P-R Int : 130 ms QRS Dur : 088 ms QT Int : 406 ms P-R-T Axes : 033 000 019 degrees QTc Int : 401 ms Sinus bradycardia Otherwise normal ECG When compared with ECG of 14-AUG-2018 08:56, No significant change was found Referred By: Ivonne Rodriguez Electronically Signed By:Chris Hall
[2022-07-01 19:15] LABS: MANUAL DIFF FLAG NO
[2022-07-01 19:17] LABS: Basophils Percent Auto 0.6 % (0-2); Eosinophils Percent Auto 0.8 % (0-4); Hematocrit 35.7 % (37.0-47.0); Hemoglobin 10.9 g/dl (12.0-16.0); Imm Gran Abs Auto 0.01 X10*3/uL (0.00-0.03); Imm Gran Pct Auto 0.2 % (0.0-0.4); Mean Corpuscular HGB Conc 30.5 g/dl (31.0-35.0); Mean Corpuscular Hemoglobin 23.8 pg (27.0-33.0); Mean Corpuscular Volume 77.9 fL (80.0-98.0); Mean Platelet Volume 9.7 fL (9.4-12.3); Monocytes Absolute Auto 0.4 X10*3/uL (0.1-1.2); Monocytes Percent Auto 7.7 % (2-11); Neutrophils Absolute Auto 2.7 x10*3/uL (2.0-8.3); Neutrophils Percent Auto 51.7 % (45-73); Platelet Count 233 X10*3/uL (160-400); Red Blood Count 4.58 X10*6/uL (4.20-5.50); Red Cell Distribution Width 18.2 % (11.0-16.0); White Blood Count 5.2 X10*3/uL (4.8-10.8)
[2022-07-01 19:22] LABS: Appearance Urine Clear; Color Urine Yellow; Glucose Urine UA Negative (Negative); Leukocyte Esterase Urine Small (1+) (Negative); Nitrite Urine Negative (Negative); Specific Gravity - Urine 1.025 (1.005-1.025); UMIC TRIGGER UACC YES; Urine Blood Negative (Negative); Urine Ketones Negative (Negative); Urine Protein Negative (Neg-Trace)
[2022-07-01 19:33] LABS: Alanine Aminotransferase 34 U/L (0-31); Albumin Level 4.6 g/dL (3.5-5.0); Alkaline Phosphatase 99 U/L (39-117); Anion Gap 14 (12-20); Aspartate Amino Transferase 30 U/L (5-31); Bilirubin Total 0.3 mg/dL (0.0-1.0); Blood Urea Nitrogen 22 mg/dL (9-16); Calcium 9.9 mg/dL (8.4-10.2); Carbon Dioxide 26 mmol/L (22-29); Chloride 103 mmol/L (96-108); Creatinine Clr Calc Pharmacy 65.4; Estimated Glomerular Filt Rate 56; Glucose Random 100 mg/dL (60-115); Magnesium 1.7 mg/dL (1.6-2.6); Potassium 4.4 mmol/L (3.3-5.1); Prothrombin Time 11.3 SEC (10.0-13.1); Sodium 139 mmol/L (135-145); Total Protein 7.7 g/dL (6.5-8.0)
[2022-07-01 19:43] LABS: Bacteria Urine None Seen (None Seen); Hyaline Casts Urine 0-2 /LPF (0-2); RBC Urine 0-2 /HPF (0-2); Squamous Epithelial Cell Urine 0-2 /HPF (0-2); UACC Culture Trigger YES; WBC Urine 0-5 /HPF (0-5)
[2022-07-01 19:52] LABS: Influenza A PCR NEGATIVE (Negative); Influenza B PCR NEGATIVE (Negative); Resp Syncy Virus RNA Qual PCR NEGATIVE (Negative); SARS COV2 PCR INHOUSE NEGATIVE (Negative)
[2022-07-01 23:42] VITALS: BP 178/101; PULSE 100; RESP 18; TEMP 36.2; O2SAT 100
[2022-07-02 01:44] VITALS: BP 146/103; PULSE 58; RESP 18; O2SAT 100
== END 2022-07-02 02:10 | disposition home or self-care (01) ==
PROVIDERS: Physician Assistant Medical; Emergency Provider Emergency Medicine; PCP Internal Medicine
DX: R51.9 Headache, unspecified (principal); Z20.822 Contact with and (suspected) exposure to COVID-19; Z20.828 Contact with and (suspected) exposure to other viral communicable diseases; I10 Essential (primary) hypertension; E78.00 Pure hypercholesterolemia, unspecified; D64.9 Anemia, unspecified; Z79.899 Other long term (current) drug therapy
CPT/HCPCS: 0241U; 70450; 71046; 80053; 81001; 83735; 85025; 85610; 87086; 87147; 93005; 99283; 99284

== ENCOUNTER 2023-08-11 09:19 | Emergency (ER) | payer BC, SELFPAY ==
--- NOTE | ~2023-08-11 | US_ITS ---
EXAMINATION: US PELVIS CLINICAL INFORMATION: Menorrhagia COMPARISON: Pelvic ultrasound 08/14/2018 TECHNIQUE: Ultrasound of the pelvis is performed using both transabdominal and transvaginal transducers along with Doppler. Transvaginal imaging is performed due to inadequate visualization transabdominally. FINDINGS: Uterus: The uterus is anteverted and enlarged measuring 10.6 x 7.7 x 8.7 cm. For a volume of 372 mL The double wall endometrial thickness is 0.7 mm. 5 uterine fibroids are seen ranging in size from 2 cm up to 5.1 cm fibroids were also present previously but exact comparisons are difficult. The largest fibroid has decreased in size slightly currently measuring 5.1 x 3.9 x 4.7 cm (previous measurements 5.5 x 5.2 x 5.3 cm). This largest fibroid is submucosal. Multiple nabothian cysts are present in the cervix some of which appear complex with internal echoes. Adnexa: Both ovaries are visualized. There is normal color flow to the adnexa. There is no ovarian torsion. There is no pelvic ascites or fluid collection. Right ovary measures 2.4 x 1.5 x 1.7 cm for a volume of 3.2 mL. A paraovarian cyst is present measuring 1.4 x 0.9 x 0.9 cm. Left ovary measures 2.9 x 2.9 x 3.1 cm for a volume of 14 mL. US/US pelvic and transvaginal IMPRESSION: Enlarged fibroid uterus. The largest fibroid has decreased in size slightly.
[2023-08-11 09:56] VITALS: BP 178/84; PULSE 69; RESP 16; TEMP 36.6; O2SAT 98; BMI 33.7
[2023-08-11 10:17] LABS: MANUAL DIFF FLAG NO
[2023-08-11 10:27] LABS: Basophils Percent Auto 0.3 % (0-2); Eosinophils Percent Auto 0.6 % (0-4); Hematocrit 36.8 % (37.0-47.0); Hemoglobin 11.7 g/dl (12.0-16.0); Imm Gran Abs Auto 0.02 X10*3/uL (0.00-0.03); Imm Gran Pct Auto 0.3 % (0.0-0.4); Lymphocytes Absolute Auto 1.6 X10*3/uL (1.2-4.9); Lymphocytes Percent Auto 25.2 % (20-40); Mean Corpuscular HGB Conc 31.8 g/dl (31.0-35.0); Mean Corpuscular Hemoglobin 27.1 pg (27.0-33.0); Mean Corpuscular Volume 85.4 fL (80.0-98.0); Mean Platelet Volume 10.1 fL (9.4-12.3); Monocytes Absolute Auto 0.4 X10*3/uL (0.1-1.2); Monocytes Percent Auto 6.1 % (2-11); Neutrophils Absolute Auto 4.4 x10*3/uL (2.0-8.3); Neutrophils Percent Auto 67.5 % (45-73); Platelet Count 241 X10*3/uL (160-400); Red Blood Count 4.31 X10*6/uL (4.20-5.50); Red Cell Distribution Width 14.2 % (11.0-16.0); White Blood Count 6.5 X10*3/uL (4.8-10.8)
[2023-08-11 10:32] LABS: Alanine Aminotransferase 15 U/L (0-31); Albumin Level 4.6 g/dL (3.5-5.0); Alkaline Phosphatase 62 U/L (39-117); Anion Gap 8 (12-20); Aspartate Amino Transferase 17 U/L (5-31); Bilirubin Total 0.5 mg/dL (0.0-1.0); Blood Urea Nitrogen 16 mg/dL (9-16); Calcium 9.8 mg/dL (8.4-10.2); Carbon Dioxide 26 mmol/L (22-29); Chloride 107 mmol/L (96-108); Estimated Glomerular Filt Rate > 60; Glucose Random 99 mg/dL (60-115); Potassium 4.4 mmol/L (3.3-5.1); Sodium 137 mmol/L (135-145)
[2023-08-11 14:44] VITALS: BP 180/91; PULSE 63; RESP 18; O2SAT 100
--- NOTE | 2023-08-11 14:58 | ED_ITS ---
HPI - Female Genitourinary General Chief complaint: Urogenital-Female Stated complaint: menstruating for almost 2 weeks ? 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 She reports having an appointment with a utilities estimator and drafter on 08/27. Related Data Home Medications Medication Instructions Recorded Confirmed norethindrone acetate 5 mg tablet 5 mg PO DAILY 05/27/20 06/15/21 Previous Rx's Medication Instructions Recorded ferrous sulfate 325 mg (65 mg 325 mg PO BID #60 tabs 06/01/21 iron) tablet simvastatin 20 mg tablet 20 mg PO QPM 90 days #90 tabs 06/01/21 albuterol sulfate 90 mcg/actuation 2 inh inhalation Q4-6H PRN 06/15/21 breath activated powder inhaler shortness of breath or wheezing #1 ea benzonatate 100 mg capsule 100 mg PO BID PRN cough #30 caps 06/15/21 cholecalciferol (vitamin D3) 50 50 mcg PO DAILY #30 caps 06/18/21 mcg (2,000 unit) capsule peg 3350-electrolytes 236 240 ml PO Q10M 1 day #4,000 mL 08/05/21 gram-22.74 gram-6.74 gram-5.86 gram solution (Golytely) dencdzodgk-kvxendqnyizbm-oxelgxpg 1 cap PO TID PRN headache #15 caps 07/02/22 50 mg-300 mg-40 mg capsule (Fioricet) hydrochlorothiazide 12.5 mg tablet 12.5 mg PO BID #60 tabs 08/30/22 Allergies Allergy/AdvReac Type Severity Reaction Status Date / Time No Known Allergies Allergy Verified 08/11/23 10:04 Review of Systems 2 Review of Systems: Pertinent positives and negatives as stated in HPI PMFSH Past Medical History Source: nursing notes reviewed Medical History Uterus fibroma Obesity (BMI 30-39.9) Anemia Pure hypercholesterolemia Surgical History Status post myomectomy (~2004) History of mammogram Family History Family History Mother Heart problem Father Heart problem Heart attack Social History Social History Housing: Apartment Alcohol intake: never Patient Tobacco Use Status: Never used Tobacco e-Cigarette/Vaping Use: Never Used Second Hand Smoke Exposure: Yes Advance Directives: No Advance Directives Information Provided: No service: No Current occupational status: employed 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 GENERAL: Well developed, well nourished, in no acute distress. HEAD: Normocephalic/atraumatic EYES: PERRLA, EOMI LUNGS: Normal breath sounds. No adventitious sounds or accessory muscle use. SpO2<100> CARDIOVASCULAR: Regular rate and rhythm without noted murmurs ABDOMEN: Soft, non-tender, non-distended with bowel sounds. PELVIC: [Experimental Mechanic Spacecraft-Ellen]- copious amounts dark/old appearing blood within the posterior vaginal fornix, there are clots also noted, active bleeding from cervical os which is exacerbated by patient coughing MUSCULOSKELETAL: No tenderness, deformities, or effusions noted on gross inspection. EXTREMITIES: No cyanosis, clubbing or edema. SKIN: Inspection of the skin reveals no rashes NEUROLOGIC: Alert and oriented x 4. Strength and sensation to light touch were grossly intact x 4. Medical Decision Making Medical Decision Making MDM Narrative: 52-year-old female with history and clinical presentation, DDX: Dysfunctional uterine bleeding, fibroids, copious amounts bleeding with clots noted on pelvic exam. I reviewed all investigations and hematologic indices are negative for leukocytosis/thrombocytopenia and patient has stable normocytic anemia. Chemistry indices are negative for NANCY/electrolytes/liver enzyme derangements. 1529: I discussed case with Dr. Fernandez, who agrees with ultrasound and repeat H&H. Signed out to Dr Richmond - f/u US and rpt H/H - [place] back to Dr Fernandez. Patient placed in physician observation because the patient needed more time for ultrasound/repeat hemoglobin-hematocrit/discussion with Dr Fernandez. At the time observation was started the patient's vital signs were stable, patient is alert and oriented, neuro: Nonfocal, CV RRR, lungs clear Differential Diagnosis Differential Diagnoses: The differential diagnosis associated with the presentation includes Please see the discussion above Admission/Observation Consideration of admission/observation: Escalation of care including admission/observation considered Please see the discussion above Consult Healthcare Provider Management of the patient was discussed with: Solids Control Technician Please see the discussion above Lab Data MDM Lab Attestation statement: I reviewed the patient's lab results. Please see the discussion above 08/11/23 10:11 08/11/23 10:11 Labs: Lab Results 08/11/23 Range/Units 10:11 WBC 6.5 (4.8-10.8) X10*3/uL RBC 4.31 (4.20-5.50) X10*6/uL Hgb 11.7 L (12.0-16.0) g/dl Hct 36.8 L (37.0-47.0) % MCV 85.4 (80.0-98.0) fL MCH 27.1 (27.0-33.0) pg MCHC 31.8 (31.0-35.0) g/dl RDW 14.2 (11.0-16.0) % Plt Count 241 (160-400) X10*3/uL MPV 10.1 (9.4-12.3) fL Immature Gran % (Auto) 0.3 (0.0-0.4) % Neut % (Auto) 67.5 (45-73) % Lymph % (Auto) 25.2 (20-40) % [place] % (Auto) 6.1 (2-11) % Eos % (Auto) 0.6 (0-4) % Baso % (Auto) 0.3 (0-2) % Lymph # (Auto) 1.6 (1.2-4.9) X10*3/uL [place] # (Auto) 0.4 (0.1-1.2) X10*3/uL Eos # (Auto) 0.0 (0.0-0.4) X10*3/uL Baso # (Auto) 0.0 (0.0-0.2) X10*3/uL Abs Immat Gran (auto) 0.02 (0.00-0.03) X10*3/uL Absolute Neuts (auto) 4.4 (2.0-8.3) x10*3/uL Absolute Nucleated RBC 0.000 (0.0-0.012) X10*3/uL Nucleated RBC % (auto) 0.0 (0.0-0.2) /100WBC Sodium 137 (135-145) mmol/L Potassium 4.4 (3.3-5.1) mmol/L Chloride 107 (96-108) mmol/L Carbon Dioxide 26 (22-29) mmol/L Anion Gap 8 L (12-20) BUN 16 (9-16) mg/dL Creatinine 0.95 (0.5-1.4) mg/dL Estim Creat Clear Calc 74.0 Estimated GFR > 60 Random Glucose 99 (60-115) mg/dL Calcium 9.8 (8.4-10.2) mg/dL Total Bilirubin 0.5 (0.0-1.0) mg/dL AST 17 (5-31) U/L ALT 15 (0-31) U/L Alkaline Phosphatase 62 (39-117) U/L Total Protein 8.0 (6.5-8.0) g/dL Albumin 4.6 (3.5-5.0) g/dL External Record Review External record reviewed: Outpatient record and Prior outpatient labs Critical Care Time Critical Care Time Critical Care Time: Yes Total Critical Care Time: 30 Attestation: I personally attest to this time spent taking care of the patient. Discharge Plan Discharge Clinical Impression: Uterine bleeding, dysfunctional, Menorrhagia Patient Disposition: Still a Patient Instructions: Dysfunctional Uterine Bleeding (ED) Prescriptions: No Action cholecalciferol (vitamin D3) 50 mcg (2,000 unit) capsule 50 mcg PO DAILY Qty: 30 0RF hydrochlorothiazide 12.5 mg tablet 12.5 mg PO BID Qty: 60 0RF ymruebbfwl-kryfwmcztylyn-odps [Fioricet] 50-300-40 mg capsule 1 cap PO TID PRN (Reason: headache) Qty: 15 0RF norethindrone acetate 5 mg tablet 5 mg PO DAILY simvastatin 20 mg tablet 20 mg PO QPM 90 Days Qty: 90 0RF ferrous sulfate 325 mg (65 mg iron) tablet 325 mg PO BID Qty: 60 3RF benzonatate 100 mg capsule 100 mg PO BID PRN (Reason: cough) Qty: 30 0RF albuterol sulfate 90 mcg/actuation aerosol powdr breath activated 2 inh inhalation Q4-6H PRN (Reason: shortness of breath or wheezing) Qty: 1 0RF peg 3350-electrolytes [Golytely] 236-22.74-6.74 -5.86 gram recon soln 240 ml PO Q10M 1 Days Qty: 4000 0RF Rx Instructions: until fecal effluent is clear; do not exceed a total volume of 2,000 mL
[2023-08-11 16:42] LABS: Hematocrit 36.7 % (37.0-47.0); Hemoglobin 11.6 g/dl (12.0-16.0)
--- NOTE | 2023-08-11 17:32 | P.CONOB_ITS ---
ETHYLENE COMPRESSOR OPERATOR - CN: HPI Data of Consult Consult date: 08/11/23 Primary Care Provider: Ivan Arrington MD Consult Narrative Narrative: I was consulted by Dr. Montoya at 15:29 on Latisha Molina who is a 52 year old female presented to emergency room complaining of vaginal bleeding over the last 1-2 weeks worse today. She reports having an appointment with a fan runner on 08/27 cc:: CC: OB PMF Past Medical History Medical History Uterus fibroma Obesity (BMI 30-39.9) Anemia Pure hypercholesterolemia Family History Family History Mother Heart problem Father Heart problem Heart attack Surgical History Surgical History Status post myomectomy (~2004) History of mammogram Social History Social History Housing: Apartment Alcohol intake: never Patient Tobacco Use Status: Never used Tobacco e-Cigarette/Vaping Use: Never Used Second Hand Smoke Exposure: Yes Advance Directives: No Advance Directives Information Provided: No service: No Current occupational status: employed 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 Cognitive needs: No Hearing needs: No Vision needs: No Meds Allergies Allergy/AdvReac Type Severity Reaction Status Date / Time No Known Allergies Allergy Verified 08/11/23 10:04 Home Medications Medication Instructions Recorded Confirmed Last Taken Type norethindrone acetate 5 mg tablet 5 mg PO DAILY 05/27/20 06/15/21 Unknown History ETHYLENE COMPRESSOR OPERATOR Physical Exam Vitals Vital signs: Temp Pulse Resp BP Pulse Ox O2 Del Method 98 F 63 18 180/91 H 100 Room Air 08/11/23 09:56 08/11/23 14:44 08/11/23 14:44 08/11/23 14:44 08/11/23 14:44 08/11/23 14:44 BMI result Body Mass Index 33.7 Additional Comments: Pelvic exam Reported by Dr. Bryan as blood per vagina, no cervical motion tenderness, no uterine or adnexal tenderness ETHYLENE COMPRESSOR OPERATOR - Results Labs 08/11/23 16:18 08/11/23 10:11 Labs: Short CBC 08/11/23 08/11/23 Range/Units 10:11 16:18 WBC 6.5 (4.8-10.8) X10*3/uL Hgb 11.7 L 11.6 L (12.0-16.0) g/dl Hct 36.8 L 36.7 L (37.0-47.0) % Plt Count 241 (160-400) X10*3/uL BMP 08/11/23 10:11 Sodium 137 Potassium 4.4 Chloride 107 Carbon Dioxide 26 BUN 16 Creatinine 0.95 Calcium 9.8 Liver Function 08/11/23 Range/Units 10:11 Total Bilirubin 0.5 (0.0-1.0) mg/dL AST 17 (5-31) U/L ALT 15 (0-31) U/L Alkaline Phosphatase 62 (39-117) U/L Albumin 4.6 (3.5-5.0) g/dL Imaging US - abdomen: Radiologist's impression: ITS Impressions Pelvic/Transvag US 08/11/23 16:38 IMPRESSION: Enlarged fibroid uterus. The largest fibroid has decreased in size slightly. Assessment and Plan (1) Abnormal uterine bleeding: Status: Acute 15:[address] Montoya H&H and pelvic ultrasound and to call back with the results . 17:[address] Viktor Waite stating that her H&H and repeat are stable 11.7 to 11.6 and 36.8-36.7 and copy of the ultrasound report showing multiple myomas with an endometrial stripe of 7 mm Recommended to start on Provera 10 mg p.o. q.d. as long as there is no contraindication to its use including but not limited to breast cancer, history or susceptibility to thrombosis and others, short-term follow-up in the outpatient office for endometrial sampling to rule out endometrial pathology including endometrial hyperplasia and/or malignancy and to discuss options of treatment regarding uterine myomas and bleeding. Instructions to be given to the patient to come back to emergency room in case of persistent or worsening of her vaginal bleeding. I spent a total of 20 minute reviewing the chart communicating to the emergency room provider and documenting in the medical record
[2023-08-11 18:06] VITALS: BP 178/97; PULSE 65; RESP 18; TEMP 36.9; O2SAT 97
== END 2023-08-11 18:06 | disposition home or self-care (01) ==
PROVIDERS: Emergency Provider Student in an Organized Health Care Education/Training Program; PCP Internal Medicine
DX: N92.0 Excessive and frequent menstruation with regular cycle (principal); N93.8 Other specified abnormal uterine and vaginal bleeding; R10.2 Pelvic and perineal pain; Z79.899 Other long term (current) drug therapy
CPT/HCPCS: 36415; 76830; 76856; 80053; 85014; 85018; 85025; 99284

== ENCOUNTER → 2023-08-11 10:14 | Outpatient (BNV) | payer BC, SELFPAY | PROVIDERS: Emergency Provider Student in an Organized Health Care Education/Training Program; PCP Internal Medicine; Visit Provider Obstetrics & Gynecology | DX: N93.9 Abnormal uterine and vaginal bleeding, unspecified (principal) | CPT/HCPCS: 99283 ==

== ENCOUNTER 2023-08-15 12:56 | Outpatient (REF) | payer BC, SELFPAY | END 2023-08-15 12:57 | disposition home or self-care (01) | LOC: HO.LNP 12:56 | PROVIDERS: PCP Internal Medicine; Visit Provider Obstetrics & Gynecology | DX: N93.9 Abnormal uterine and vaginal bleeding, unspecified (principal); D25.9 Leiomyoma of uterus, unspecified; N39.0 Urinary tract infection, site not specified; R31.29 Other microscopic hematuria | CPT/HCPCS: 58100; 81002; 88305 ==

== ENCOUNTER 2023-08-15 12:56 | Outpatient (AMB) | payer BC, SELFPAY ==
[2023-08-15 13:14] VITALS: BMI 33.7
--- NOTE | 2023-08-15 13:14 | MHC.OFFVIS ---
Intake Vital Signs 08/15/23 13:14 08/15/23 13:18 Height 5 ft 4 in 5 ft 4 in Weight 196 lb 3.382 oz 194 lb BMI 33.7 33.3 BP 160/90 H Intake Visit Reasons: vaginal bleeding Cable Installer Required: Yes Cable Installer Language: Documentation Analyst Name: Marivel SAENZ Information Interpreted: non-clinical & clinical Certified Marine Mechanic: Certified Marine Mechanic Present (Marivel) Allergies No Known Allergies Allergy (Verified 08/15/23 13:23) Is last menstrual period known: Yes Last menstrual period: 07/31/23 Post menopausal: No HPI HPI Comments History of Present Illness Details Presenting for emergency room follow-up. The patient went to the emergency room few days ago with vaginal bleeding the following workup was done: H&H was 11.7/36.8 , repeated after few hours stayed the same 11.6/36.7 Pelvic ultrasound showed the following: Uterus: The uterus is anteverted and enlarged measuring 10.6 x 7.7 x 8.7 cm. For a volume of 372 mL The double wall endometrial thickness is 0.7 mm. 5 uterine fibroids are seen ranging in size from 2 cm up to 5.1 cm fibroids were also present previously but exact comparisons are difficult. The largest fibroid has decreased in size slightly currently measuring 5.1 x 3.9 x 4.7 cm (previous measurements 5.5 x 5.2 x 5.3 cm). This largest fibroid is submucosal. Multiple nabothian cysts are present in the cervix some of which appear complex with internal echoes. Adnexa: Both ovaries are visualized. There is normal color flow to the adnexa. There is no ovarian torsion. There is no pelvic ascites or fluid collection. Right ovary measures 2.4 x 1.5 x 1.7 cm for a volume of 3.2 mL. A paraovarian cyst is present measuring 1.4 x 0.9 x 0.9 cm. Left ovary measures 2.9 x 2.9 x 3.1 cm for a volume of 14 mL. Last co testing was in 06/04 was negative Last mammogram at [facility] was within normal according to the patient was in 07/08 The patient was discharged on Provera 10 mg p.o. q.d. and since then her bleeding has slowed down markedly. The patient has been complaining of dysuria over the last few days [facility] Medical History (Updated 08/15/23 @ 13:53 by Enrike Fernandez MD) Uterus fibroma Obesity (BMI 30-39.9) Anemia Pure hypercholesterolemia Surgical History Hx of tubal ligation Status post myomectomy (~2004) History of mammogram Family History Mother Heart problem Colon cancer Father Heart problem Heart attack Sister Breast cancer Social History Housing: Apartment Alcohol intake: never Patient Tobacco Use Status: Never used Tobacco e-Cigarette/Vaping Use: Never Used Second Hand Smoke Exposure: Yes service: No Current occupational status: employed 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 Cognitive needs: No Hearing needs: No Vision needs: No Female Reproductive History Menstrual Age of Menarche: 11 Duration of menses: 3-5 days Date of last menstrual period: 07/31/23 control method: permanent sterilization Total pregnancies: 2 Full term: 2 Number of Living Children: 2 Review of Systems Const All systems reviewed & are unremarkable except as noted in HPI and below Card Reports as per HPI Resp Reports as per HPI GI Reports as per HPI and Reports no additional complaints Reports as per HPI Physical Exam Vital Signs: Last Vital Signs BP 160/90 H 08/15/23 13:18 BMI result Body Mass Index 33.3 Const General: cooperative, healthy appearing and comfortable Chest Chest palpation & inspection: normal inspection of the chest and normal palpation of entire chest wall Breast/axilla inspection: normal inspection of the breasts and normal inspection of the axillae Breast/axilla palpation: normal palpation of the breasts, normal palpation of the axillae and no axillary lymphadenopathy Resp Effort & Inspection: normal respiratory effort Auscultation: clear to auscultation bilaterally Percussion: percussion normal Cardio Palpation: normal PMI Rate: regular rate Rhythm: regular rhythm Heart sounds: no murmurs and no rubs Peripheral pulses: Peripheral pulses 2+ throughout GI Inspection: Yes normal to inspection Palpation (GI): Soft to palpation, nontender, no guarding, not rigid and No hepatosplenomegaly present Percussion: Yes normal to percussion Auscultation: normal bowel sounds Rectal Exam - Female: deferred General: Yes bladder normal to palpation External Female Exam: No lesion Speculum Exam - Vagina: normal appearance of the vagina, normal palpation, normal vaginal discharge and not erythematous Speculum Exam - Cervix: normal appearance of the cervix and normal palpation Bimanual exam- vagina & uterus: normal bimanual exam, normal palpation, uterine size normal, bladder normal to palpation, consistency normal and normal palpation Bimanual Exam- Adnexa, other: normal adnexae, no masses and no tenderness Office Procedures Endometrial Biopsy Details: The patient was counseled regarding the indication and benefits of endometrial sampling to rule out endometrial pathology including not limited to endometrial hyperplasia or endometrial cancer and others; The alternatives (Either do nothing vs. hysteroscopy D&C) & the risks were discussed with the patient including but not limited: pain, uterine perforation, bleeding, infection, possible injury to bladder, bowel, ureter, possible need for blood transfusion with all its possible risks. The patient verbalized understanding all questions answered and signed consent. Urine test done in the office was negative The patient was placed into the dorsal lithotomy position; a speculum was inserted in the vagina. Using aseptic technique for the procedure, the cervix was cleansed with Betadine. The anterior lip of the cervix was grasped with a single tooth tenaculum. The uterus was sounded to 7 cm with a 4 mm Pipelle was used. Tissues samples were obtained and placed in formalin, in a patient labeled container and sent to the pathology department. At the end of the procedure, there was minimal bleeding noted The patient tolerated the procedure well and was discharged in good condition with the following instructions: Nothing in the vagina until the bleeding stops. No sex until the bleeding stops, to call if any of the following occurs: fever (>100.4), flu-like symptoms, abdominal pain, heavy bleeding, four smelling vaginal discharge. The patient was instructed to schedule a Follow up appointment in 2 weeks to discuss pathology results of the biopsy and treatment options. This note was generated with a voice recognition program. Some errors may have been overlooked during the review of this note. Sometimes these errors may affect the content or meaning of a given sentence. [id number] Biopsy Results AMB Urinalysis Dipstick UR Leukocytes Trace Last Edit by Marivel Rowan CMA on 08/15/23 13:56 UR Nitrite Negative Last Edit by Marivel Rowan CMA on 08/15/23 13:56 UR Urobilinogen Normal Last Edit by Marivel Rowan, INDUSTRIAL REGISTERED NURSE on 08/15/23 13:56 UR Protein Negative Last Edit by Marivel Rowan, INDUSTRIAL REGISTERED NURSE on 08/15/23 13:56 UR Ph 5.0 Last Edit by Marivel Rowan, INDUSTRIAL REGISTERED NURSE on 08/15/23 13:56 UR Blood Large Last Edit by Marivel Rowan, INDUSTRIAL REGISTERED NURSE on 08/15/23 13:56 UR Specific [place] 1.015 Last Edit by Marivel Rowan, INDUSTRIAL REGISTERED NURSE on 08/15/23 13:56 UR Ketone Negative Last Edit by Marivel Rowan, INDUSTRIAL REGISTERED NURSE on 08/15/23 13:56 UR Bilirubin Negative Last Edit by Marivel Rowan, INDUSTRIAL REGISTERED NURSE on 08/15/23 13:56 UR Glucose Negative Last Edit by Marivel Rowan, INDUSTRIAL REGISTERED NURSE on 08/15/23 13:56 Assessment & Plan Assessment & Plan (1) Abnormal uterine bleeding: Code(s): N93.9 - Abnormal uterine and vaginal bleeding, unspecified Plan: UPT done in the office was negative. GC and chlamydia taken CBC, prolactin, FSH/LH, TSH, HCG, ordered. The patient was asked to sign a medical release form to get a copy of her screening mammogram result. Instructions given the patient to continue on taking Provera 10 mg p.o. daily till next visit. Discussed with the patient the different causes of abnormal bleeding including thyroid disorders, uterine and ovarian pathology, endometrial hyperplasia, carcinoma and other potential causes. Discussed with the patient the work up including CBC (to r/o anemia), TSH, pelvic Ultrasound, endometrial biopsy to r/o endometrial pathology. EMB done, see procedure note All questions answered and the patient verbalized understanding. Instructed the patient to schedule 2 week follow-up appointment appointment. (2) Uterus fibroma: Comment: Largest myoma is submucosal Code(s): D25.9 - Leiomyoma of uterus, unspecified Plan: Discussed with the patient the results of the ultrasound and the size of the myomas. Discussed with the patient risk of myosarcoma and symptoms that are caused by myomas including but not limited to pelvic pain, pressure symptoms, abnormal uterine bleeding. In addition discussed with the patient options of treatment for myomas including: Serial ultrasounds periodically to follow-up on the size of the myoma while targeting the treatment against fibroids related symptoms ( control pills, Mirena IUD, progesterone treatment, GnRH agonist/antagonist, uterine artery embolization or endometrial ablation) versus surgical treatment including hysterectomy and or myomectomy. All pros and cons, risks and benefits of all options were discussed with the patient. The patient understands that delay in surgical treatment in case of myosarcoma can affect her prognosis, after further discussion, the patient decided to think about it and get back to us next visit (3) UTI (urinary tract infection): Code(s): N39.0 - Urinary tract infection, site not specified Plan: Urine dip done in the office showed microscopic blood and leukocytes, urine culture sent will treat with Macrobid 100 mg p.o. b.i.d. for 5 days. Instructions given the patient to call in case of symptoms not improve, fever above 100.4, flank pain or other concerns. (4) Microscopic hematuria: Code(s): R31.29 - Other microscopic hematuria Plan: Urine dip showed microscopic hematuria, urine culture sent and Macrobid sent to the patient's pharmacy to treat possible UTI will repeat urine dip in 2 weeks Orders: Orders TSH reflex Free T4 Today N93.9 - Abnormal uterine and vaginal bleeding, unspecified Complete Blood Count no Diff Today N93.9 - Abnormal uterine and vaginal bleeding, unspecified Prolactin Today N93.9 - Abnormal uterine and vaginal bleeding, unspecified HCG Quantitative Today N93.9 - Abnormal uterine and vaginal bleeding, unspecified Lutenizing Hormone Today N93.9 - Abnormal uterine and vaginal bleeding, unspecified Follicle Stimulating Hormone Today N93.9 - Abnormal uterine and vaginal bleeding, unspecified AMB Endometrial Biopsy Today N93.9 - Abnormal uterine and vaginal bleeding, unspecified Surgical Today N93.9 - Abnormal uterine and vaginal bleeding, unspecified CT NG by PCR Today N93.9 - Abnormal uterine and vaginal bleeding, unspecified Urine Culture Today R31.29 - Other microscopic hematuria AMB Urinalysis Dipstick Today N39.0 - Urinary tract infection, site not specified, R31.29 - Other microscopic hematuria Medications: New nitrofurantoin monohyd/m-cryst 100 mg (Macrobid) 100 mg PO BID 5 days 10 caps 0RF Coding Level of Care Code New Pt Level 3 (86034) Diagnoses Abnormal uterine bleeding N93.9 Uterus fibroma D25.9 UTI (urinary tract infection) N39.0 Microscopic hematuria R31.29 CPT Codes Endometrial Biopsy - CPT: 74229-[id number] Biopsy ([id number])
[2023-08-15 13:18] VITALS: BP 160/90; BMI 33.3
== END 2023-08-15 15:28 | disposition home or self-care (01) ==
LOC: HO.HWS 12:56
PROVIDERS: PCP Internal Medicine; Visit Provider Obstetrics & Gynecology
DX: N93.9 Abnormal uterine and vaginal bleeding, unspecified (principal); D25.9 Leiomyoma of uterus, unspecified; N39.0 Urinary tract infection, site not specified; R31.29 Other microscopic hematuria
CPT/HCPCS: 58100; 99203

== ENCOUNTER 2023-08-15 14:08 | Outpatient (REF) | payer BC, SELFPAY ==
[2023-08-15 14:56] LABS: Hematocrit 33.1 % (37.0-47.0); Hemoglobin 10.5 g/dl (12.0-16.0); Mean Corpuscular HGB Conc 31.7 g/dl (31.0-35.0); Mean Corpuscular Hemoglobin 27.2 pg (27.0-33.0); Mean Corpuscular Volume 85.8 fL (80.0-98.0); Mean Platelet Volume 10.3 fL (9.4-12.3); Platelet Count 257 X10*3/uL (160-400); Red Blood Count 3.86 X10*6/uL (4.20-5.50); Red Cell Distribution Width 14.4 % (11.0-16.0); White Blood Count 5.9 X10*3/uL (4.8-10.8)
[2023-08-15 15:50] LABS: HCG Quantitative < 2 mIU/mL; TSH reflex Free T4 1.56 uIU/mL (0.32-4.0)
[2023-08-16 03:04] LABS: CT PCR NOT DETECTED (Not Detect.); NG PCR NOT DETECTED (Not Detect.)
[2023-08-16 13:28] LABS: Follicle Stimulating Hormone 34.4 mIU/mL; Lutenizing Hormone 13.3 mIU/mL; Prolactin 7.3 ng/mL
== END 2023-08-15 14:09 | disposition home or self-care (01) ==
LOC: HO.LAB 14:08
PROVIDERS: Visit Provider Obstetrics & Gynecology
DX: N93.9 Abnormal uterine and vaginal bleeding, unspecified (principal); R31.29 Other microscopic hematuria; Z20.2 Contact with and (suspected) exposure to infections with a predominantly sexual mode of transmission
CPT/HCPCS: 0353U; 83001; 83002; 84146; 84443; 84702; 85027; 87086

== ENCOUNTER 2023-09-04 11:28 | Outpatient (AMB) | payer BC, SELFPAY ==
--- NOTE | 2023-09-04 11:32 | MHC.OFFVIS ---
Vital Signs 09/04/23 11:33 Height 5 ft 4 in Weight 194 lb BMI 33.3 BP 130/84 Intake Visit Reasons: EMB follow up/ urine dip Health Information Specialist Required: Yes Health Information Specialist Language: Rn Dermatology Name: Radha [id number] Information Interpreted: non-clinical & clinical Allergies No Known Allergies Allergy (Verified 09/04/23 11:33) HPI Comments Details: The patient is presenting for follow-up to discuss the results of her abnormal uterine bleeding workup and options of treatment. In addition the patient is presenting for repeat urine dip for microscopic hematuria. Urine culture done recently was negative The following workup was done.: H&H= 10.5/33.1 TSH, hCG, GC and chlamydia were negative. FSH/LH= 34.4/13.3 in the menopausal range Endometrial biopsy pathology showed inactive endometrium with no evidence of hyperplasia and/or malignancy. Co testing was done in 07/06 at [facility] was negative. Mammogram was done at [facility] according to the patient in 07/08 was negative Pelvic ultrasound showed the following: Uterus: The uterus is anteverted and enlarged measuring 10.6 x 7.7 x 8.7 cm. For a volume of 372 mL The double wall endometrial thickness is 0.7 mm. 5 uterine fibroids are seen ranging in size from 2 cm up to 5.1 cm fibroids were also present previously but exact comparisons are difficult. The largest fibroid has decreased in size slightly currently measuring 5.1 x 3.9 x 4.7 cm (previous measurements 5.5 x 5.2 x 5.3 cm). This largest fibroid is submucosal. Multiple nabothian cysts are present in the cervix some of which appear complex with internal echoes. Adnexa: Both ovaries are visualized. There is normal color flow to the adnexa. There is no ovarian torsion. There is no pelvic ascites or fluid collection. Right ovary measures 2.4 x 1.5 x 1.7 cm for a volume of 3.2 mL. A paraovarian cyst is present measuring 1.4 x 0.9 x 0.9 cm. Left ovary measures 2.9 x 2.9 x 3.1 cm for a volume of 14 mL. 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 Cognitive needs: No Hearing needs: No Vision needs: No Female Reproductive History Menstrual Age of Menarche: 11 Review of Systems Const All systems reviewed & are unremarkable except as noted in HPI and below Reports as per HPI and Reports no additional complaints GI Reports no additional complaints Reports no additional complaints Physical Exam Vital Signs: Last Vital Signs BP 130/84 09/04/23 11:33 BMI result Body Mass Index 33.3 Results AMB Urinalysis, Automated UA Leukoctes 0 Shivani/uL Last Edit by LETTY Pratt on 09/04/23 11:42 UA Nitrite Negative Last Edit by LETTY Pratt on 09/04/23 11:42 UA Urobilinogen 0 mg/dL Last Edit by LETTY Pratt on 09/04/23 11:42 UA Protein 0 mg/dL Last Edit by LETTY Pratt on 09/04/23 11:42 UA pH 5.0 Last Edit by LETTY Pratt on 09/04/23 11:42 UA Blood 0.5 Demetrius/uL Last Edit by LETTY Pratt on 09/04/23 11:42 UA Specific [place] 1.030 Last Edit by LETTY Pratt on 09/04/23 11:42 UA Ketone Negative Last Edit by LETTY Pratt on 09/04/23 11:42 UA Bilirubin 0 mg/dL Last Edit by LETTY Pratt on 09/04/23 11:42 UA Glucose 0 mg/dL Last Edit by LETTY Pratt on 09/04/23 11:42 Results Reviewed Results Reviewed: Laboratory Last Values Urine pH (Auto) 5.0 09/04/23 11:41 Specific [place] (Auto) 1.030 09/04/23 11:41 Urine Protein (Auto) 0 mg/dL 09/04/23 11:41 Glucose (UA)(Auto) 0 mg/dL 09/04/23 11:41 Urine Ketones (Auto) Negative 09/04/23 11:41 Urine Blood (Auto) 0.5 Demetrius/uL 09/04/23 11:41 Urine Nitrite (Auto) Negative 09/04/23 11:41 Urine Bilirubin (Auto) 0 mg/dL 09/04/23 11:41 Urine Urobilinogen (Auto) 0 mg/dL 09/04/23 11:41 Leukocyte Esterase (Auto) 0 Shivani/uL 09/04/23 11:41 Assessment & Plan Assessment & Plan (1) Abnormal uterine bleeding: Code(s): N93.9 - Abnormal uterine and vaginal bleeding, unspecified Category: Medical Plan: Instructions given the patient discontinue continuous Provera today. Discussed with the patient the results of the work up done and options of treatment including but not limited to BCP's, cyclic Progesterone, Mirena IUD, endometrial ablation and hysterectomy. All pros, cons, risks and benefits of each option were discussed with the patient and the patient decided to go ahead with cyclic Provera, so a more detailed discussion re: Progesterone treatment including mechanism of action, benefits (regular menses, endometrial protection form unopposed estrogen and reduction in the risk of endometrial hyperplasia and/or cancer ...), risks (Thrombosis, mood changes, weight gain, breast soreness, ? increased breast ca, others). Instructions were given to use a back- up method for contraception since this is not a method control, take the medication 1 tablet daily starting day 15-24 and to schedule a 3 months follow-up appointment; patient verbalized understanding and agreed with the plan. (2) Microscopic hematuria: Code(s): R31.29 - Other microscopic hematuria Category: Medical Plan: Repeat urine dip showed persists microscopic hematuria, will refer to Urology and order CT scan of abdomen and pelvis (3) Myoma: Code(s): D21.9 - Benign neoplasm of connective and other soft tissue, unspecified Category: Medical Plan: Discussed with the patient the findings on pelvic ultrasound & the risk of myosarcoma; discussed with the patient the options of treatment including expectant management versus hysterectomy; the pros and cons, risks benefits of each approach were discussed with the patient including the fact that in cases of myosarcoma, surgical treatment can lead to early diagnosis and positively affects the prognosis; after further discussion, the patient decided to proceed with expectant management. Will repeat pelvic ultrasound in 6 months. Instructions given to patient to call in case any of the following occurs: pressure symptoms, abnormal uterine bleeding, pelvic pain; and to schedule a six-month ultrasound and a follow-up appointment. All questions answered, the patient verbalized understanding and agreed with the plan . Orders: Orders AMB Urinalysis Automated Today R31.29 - Other microscopic hematuria Urine Culture Today R31.29 - Other microscopic hematuria CT abdomen pelvis wo/w IV con Today R31.29 - Other microscopic hematuria US pelvic and transvaginal 6 Months D25.9 - Leiomyoma of uterus, unspecified Referrals Urology Referral R31.29 - Other microscopic hematuria Medications: New medroxyprogesterone (Provera) start Provera 1 tablet daily from day 15-24 cyclically every months, day 1 being 1st day of menses 10 mg PO DAILY 30 tabs 3RF 10 days
[2023-09-04 11:33] VITALS: BP 130/84; BMI 33.3
== END 2023-09-04 12:17 | disposition home or self-care (01) ==
LOC: HO.HWS 11:29
PROVIDERS: PCP Internal Medicine; Visit Provider Obstetrics & Gynecology
DX: N93.9 Abnormal uterine and vaginal bleeding, unspecified (principal); R31.29 Other microscopic hematuria; D21.9 Benign neoplasm of connective and other soft tissue, unspecified
CPT/HCPCS: 99213

== ENCOUNTER 2023-09-04 11:28 | Outpatient (REF) | payer BC, SELFPAY | END 2023-09-04 11:29 | disposition home or self-care (01) | LOC: HO.LAB 11:28 | PROVIDERS: PCP Internal Medicine; Visit Provider Obstetrics & Gynecology | DX: R31.29 Other microscopic hematuria (principal) | CPT/HCPCS: 81003; 87086 ==

== ENCOUNTER 2023-09-08 12:35 | Outpatient (REF) | payer BC, SELFPAY | END 2023-09-08 12:36 | disposition home or self-care (01) | LOC: HO.US 12:35 | PROVIDERS: PCP Internal Medicine; Visit Provider Obstetrics & Gynecology | DX: Z13.89 Encounter for screening for other disorder (principal) ==

== ENCOUNTER 2023-10-27 08:47 | Outpatient (REF) | payer BC, SELFPAY ==
--- NOTE | ~2023-10-27 | CT_ITS ---
EXAMINATION: CT ABDOMEN AND PELVIS WITHOUT AND WITH CONTRAST CLINICAL INFORMATION: Microscopic hematuria. COMPARISON: Pelvic ultrasound 08/11/2023. TECHNIQUE: Multidetector volumetric imaging was performed of the abdomen and pelvis before and after the IV administration of 85 mL of Omnipaque 350 intravenous contrast. Sagittal and coronal reformatted images were obtained on the technologist's workstation. This CT examination was performed using dose optimization techniques as appropriate, variously including the following: *Automated exposure control *Adjustment of mA and/or kV according to patient size (this includes techniques or standardized protocols for targeted exams where dose is matched to indication/reason for exam; i.e. extremities or head) *Use of iterative reconstruction technique DLP: 900 mGy-cm FINDINGS: LUNG BASES: The visualized lung bases are unremarkable. LIVER, GALLBLADDER, AND BILIARY TREE: The liver is normal in size, shape, and attenuation. No focal hepatic lesion or biliary ductal dilatation is present. The gallbladder is unremarkable with no evidence of radiopaque gallstones, gallbladder wall thickening, or obvious pericholecystic inflammatory changes. PANCREAS: No discrete mass or ductal dilatation. SPLEEN: Unremarkable. ADRENAL GLANDS: No adrenal mass. KIDNEYS AND URETERS: Punctate nonobstructing calculus in the upper pole left kidney 6.9 cm from posterolateral skin surface. Symmetric nephrograms. Simple cyst in the lower pole right kidney. Tiny cortical hypodensity in the lower pole left kidney that is too small to characterize but most likely a cyst. No imaging follow-up is recommended. Symmetric urinary contrast excretion. No hydroureteronephrosis. No filling defects in the collecting system. BLADDER: The bladder is impressed upon by the bulky uterus. No intrinsic bladder mass is visible. GASTROINTESTINAL TRACT: The small and large bowel are normal in caliber. ABDOMINAL WALL: No significant hernia. LYMPH NODES: No lymphadenopathy. VASCULAR: No aortic aneurysm. PELVIC VISCERA: Bulky fibroid uterus measuring 16 x 10 x 10 cm. There are multiple intramural and pedunculated fibroids. The dominant intramural posterior fundal fibroid measures 6.6 x 5.9 x 5.7 cm. OSSEOUS STRUCTURES: Moderate degenerative changes at L5-S1. CT/CT abdomen pelvis wo/w IV con IMPRESSION: Punctate nonobstructing calculus left upper kidney. No hydroureteronephrosis or filling defect within the collecting system. No suspicious renal mass.
[2023-10-27] MEDS: iohexoL 350 MG/ML 100 ML INFUS..BTL 85 ML IV (09:51)
[2023-10-30 10:22] LABS: Creatinine POC 0.9 mg/dL (0.5-1.4); GFR POC > 60
== END 2023-10-27 08:48 | disposition home or self-care (01) ==
LOC: HO.CT 08:47
PROVIDERS: PCP Internal Medicine; Visit Provider Obstetrics & Gynecology
DX: R31.29 Other microscopic hematuria (principal)
CPT/HCPCS: 74178; 82565; Q9967

== ENCOUNTER 2023-11-21 13:11 | Outpatient (AMB) | payer BC, SELFPAY ==
[2023-11-21 13:17] VITALS: BP 132/82; BMI 32.9
--- NOTE | 2023-11-21 13:17 | MHC.OFFVIS ---
Vital Signs 11/21/23 13:17 Height 5 ft 4 in Weight 191 lb 12.835 oz BMI 32.9 BP 132/82 Intake Visit Reasons: ct-scan results Bulk Sealer Operator Required: Yes Bulk Sealer Operator Language: Wrapper Layer And Examiner Soft Work Services: Bulk Sealer Operator Present Bulk Sealer Operator Name: Marivel SAENZ Information Interpreted: non-clinical & clinical Accompanied by: Self / Same As Patient Allergies No Known Allergies Allergy (Verified 11/21/23 13:18) Post menopausal: Yes HPI Comments Details: Presenting for CT follow-up for persistent microscopic hematuria . CT scan showed the following: IMPRESSION: Punctate nonobstructing calculus left upper kidney. No hydroureteronephrosis or filling defect within the collecting system. No suspicious renal mass. 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 Cognitive needs: No Hearing needs: No Vision needs: No Female Reproductive History Menstrual Age of Menarche: 11 Review of Systems Const All systems reviewed & are unremarkable except as noted in HPI and below Reports as per HPI and Reports no additional complaints GI Reports no additional complaints Reports no additional complaints Physical Exam Vital Signs: Last Vital Signs BP 132/82 11/21/23 13:17 BMI result Body Mass Index 32.9 Assessment & Plan Assessment & Plan (1) Microscopic hematuria: Code(s): R31.29 - Other microscopic hematuria Category: Medical Plan: Discussed with the patient the results the CT scan, urology referral was placed last visit, the patient is scheduled for an appointment on 11/22. All questions answered, the patient verbalized understanding. Coding Level of Care Code Est Pt Level 3 (23966) Diagnoses Microscopic hematuria R31.29
== END 2023-11-21 13:33 | disposition home or self-care (01) ==
LOC: HO.HWS 13:11
PROVIDERS: PCP Internal Medicine; Visit Provider Obstetrics & Gynecology
DX: R31.29 Other microscopic hematuria (principal)
CPT/HCPCS: 99213

== ENCOUNTER → 2023-11-21 13:11 | Outpatient (BNVA) | payer BC, SELFPAY | PROVIDERS: PCP Internal Medicine; Visit Provider Obstetrics & Gynecology ==

== ENCOUNTER 2023-11-23 11:02 | Outpatient (REF) | payer BC, SELFPAY ==
[2023-11-23 16:46] LABS: Urine Cytology See Pathology rpt
== END 2023-11-23 11:03 | disposition home or self-care (01) ==
LOC: HO.LNP 11:02
PROVIDERS: PCP Internal Medicine; Visit Provider Urology
DX: N39.0 Urinary tract infection, site not specified (principal)
CPT/HCPCS: 81003; 88112

== ENCOUNTER 2023-11-23 11:02 | Outpatient (AMB) | payer BC, SELFPAY ==
--- NOTE | 2023-11-23 11:06 | A.OFFVIS_ITS ---
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 I have discussed reasons for blood in the urine may include but are not limited to kidney stones, cancer in the urinary tract, BPH, or inflammatory conditions of the urinary tract. I have discussed workup to include cystoscopy evaluation. [facility] Medical History (Updated 01/04/24 @ 10:31 by Guanaco Adan MD) Vitamin D deficiency HTN (hypertension) Uterus fibroma Obesity (BMI 30-39.9) Anemia Pure hypercholesterolemia Surgical History Hx of tubal ligation Status post myomectomy (~2004) History of mammogram Family History Mother Heart problem Colon cancer Father Heart problem Heart attack Sister Breast cancer Social History Housing: Apartment Alcohol intake: never Patient Tobacco Use Status: Never used Tobacco e-Cigarette/Vaping Use: Never Used Second Hand Smoke Exposure: Yes service: No Current occupational status: employed 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 Cognitive needs: No Hearing needs: No Vision needs: No Female Reproductive History Menstrual Age of Menarche: 11 Review of Systems Const All systems reviewed & are unremarkable except as noted in HPI and below Reports no additional complaints Eyes Reports no additional complaints ENT Reports no additional complaints Card Reports no additional complaints Resp Reports no additional complaints GI Reports no additional complaints Reports as per HPI Musc Reports no additional complaints Skin/Breast Reports system reviewed and no additional complaints, except as documented Neuro Reports no additional complaints Psych Reports no additional complaints Endo Reports no additional complaints Russell/Lymph Reports no additional complaints Aller/Immun Reports no additional complaints Physical Exam Const General: cooperative, healthy appearing and no acute distress Orientation/consciousness: patient oriented x3 HEENT Head: Yes normal to inspection, Yes normocephalic and Yes atraumatic Eyes Conjunctivae: conjunctivae normal Neck Neck: Yes normal visual inspection and Yes trachea midline Chest Chest palpation & inspection: normal inspection of the chest Resp Effort & Inspection: normal respiratory effort Cardio Rate: regular rate GI Inspection: Yes normal to inspection Palpation (GI): Soft to palpation Skin General skin exam: no rashes or lesions noted Neuro General: patient oriented x3 Extrem General: No edema Psych Appearance: grossly normal Results AMB Urinalysis, Automated UA Leukoctes 0 Shivani/uL Last Edit by DEWEY Abraham on 11/23/23 11:20 UA Nitrite Negative Last Edit by DWEEY Abraham on 11/23/23 11:20 UA Urobilinogen 0.2 mg/dL Last Edit by Concha Lucoi CCM on 11/23/23 11:2 0 UA Protein 15 mg/dL Last Edit by DEWEY Abraham on 11/23/23 11:20 UA pH 5.5 Last Edit by Concha Lucio CCM on 11/23/23 11:20 UA Blood 10 Demetrius/uL Last Edit by Concha Lucio CCM on 11/23/23 11:20 UA Specific [place] 1.030 Last Edit by Concha Lucio CCM on 11/23/23 11: 20 UA Ketone Negative Last Edit by Concha Lucio CCM on 11/23/23 11:20 UA Bilirubin 0 mg/dL Last Edit by Concha Lucio CCM on 11/23/23 11:20 UA Glucose 0 mg/dL Last Edit by Concha Lucio [facility] on 11/23/23 11:20 Results Reviewed Results Reviewed: Laboratory Last Values Urine pH (Auto) 5.5 11/23/23 11:20 Specific [place] (Auto) 1.030 11/23/23 11:20 Urine Protein (Auto) 15 mg/dL 11/23/23 11:20 Glucose (UA)(Auto) 0 mg/dL 11/23/23 11:20 Urine Ketones (Auto) Negative 11/23/23 11:20 Urine Blood (Auto) 10 Demetrius/uL 11/23/23 11:20 Urine Nitrite (Auto) Negative 11/23/23 11:20 Urine Bilirubin (Auto) 0 mg/dL 11/23/23 11:20 Urine Urobilinogen (Auto) 0.2 mg/dL 11/23/23 11:20 Leukocyte Esterase (Auto) 0 Shivani/uL 11/23/23 11:20 Date of Service: 10/27/23 CT ABDOMEN AND PELVIS WITHOUT AND WITH CONTRAST CLINICAL INFORMATION: Microscopic hematuria. COMPARISON: Pelvic ultrasound 08/11/2023. TECHNIQUE: Multidetector volumetric imaging was performed of the abdomen and pelvis before and after the IV administration of 85 mL of Omnipaque 350 intravenous contrast. Sagittal and coronal reformatted images were obtained on the technologist's workstation. This CT examination was performed using dose optimization techniques as appropriate, variously including the following: *Automated exposure control *Adjustment of mA and/or kV according to patient size (this includes techniques or standardized protocols for targeted exams where dose is matched to indication/reason for exam; i.e. extremities or head) *Use of iterative reconstruction technique DLP: 900 mGy-cm FINDINGS: LUNG BASES: The visualized lung bases are unremarkable. LIVER, GALLBLADDER, AND BILIARY TREE: The liver is normal in size, shape, and attenuation. No focal hepatic lesion or biliary ductal dilatation is present. The gallbladder is unremarkable with no evidence of radiopaque gallstones, gallbladder wall thickening, or obvious pericholecystic inflammatory changes. PANCREAS: No discrete mass or ductal dilatation. SPLEEN: Unremarkable. ADRENAL GLANDS: No adrenal mass. KIDNEYS AND URETERS: Punctate nonobstructing calculus in the upper pole left kidney 6.9 cm from posterolateral skin surface. Symmetric nephrograms. Simple cyst in the lower pole right kidney. Tiny cortical hypodensity in the lower pole left kidney that is too small to characterize but most likely a cyst. No imaging follow-up is recommended. Symmetric urinary contrast excretion. No hydroureteronephrosis. No filling defects in the collecting system. BLADDER: The bladder is impressed upon by the bulky uterus. No intrinsic bladder mass is visible. GASTROINTESTINAL TRACT: The small and large bowel are normal in caliber. ABDOMINAL WALL: No significant hernia. LYMPH NODES: No lymphadenopathy. VASCULAR: No aortic aneurysm. PELVIC VISCERA: Bulky fibroid uterus measuring 16 x 10 x 10 cm. There are multiple intramural and pedunculated fibroids. The dominant intramural posterior fundal fibroid measures 6.6 x 5.9 x 5.7 cm. OSSEOUS STRUCTURES: Moderate degenerative changes at L5-S1. IMPRESSION: Punctate nonobstructing calculus left upper kidney. No hydroureteronephrosis or filling defect within the collecting system. No suspicious renal mass. Assessment & Plan Assessment & Plan (1) Microscopic hematuria: Code(s): R31.29 - Other microscopic hematuria Category: Medical (2) Kidney stone: Code(s): N20.0 - Calculus of kidney Category: Medical Plan Microscopic hematuria CTAP-- Punctate left kidney stone. Follow-up office cystoscopy Orders: Orders Urine Cytology 11/23/23 N39.0 - Urinary tract infection, site not specified AMB Urinalysis Automated 11/23/23 Z13.9 - Encounter for screening, unspecified Patient Instructions: The patient had an opportunity to ask questions regarding treatment plan. The patient expressed understanding and agreement with the above treatment plan. The patient is aware they should contact our office by phone for worsening of their current condition or the appearance of new symptoms. Compliance is encouraged with any medications and followup testing that is ordered. It is a privilege to be allowed the opportunity to participate in the urologic care of your patient. If you have any questions or concerns regarding treatment for the above conditions please do not hesitate to contact me. The office tel ephone contact is [phone]. This note is constructed in part using voice recognition software. While every effort has been made to ensure accuracy deburring technician errors may have been included. Yours sincerely, Guanaco Adan MD Coding Level of Care Code New Pt Level 4 (03574) Diagnoses Microscopic hematuria R31.29 Kidney stone N20.0
== END 2023-11-23 11:46 | disposition home or self-care (01) ==
PROVIDERS: PCP Internal Medicine; Visit Provider Urology
DX: R31.29 Other microscopic hematuria (principal); N20.0 Calculus of kidney
CPT/HCPCS: 99204

== ENCOUNTER 2024-01-04 09:19 | Outpatient (AMB) | payer BC, SELFPAY ==
--- NOTE | 2024-01-04 09:50 | A.OFFVIS_ITS ---
Intake Visit Reasons: cysto Intake Note: Patient is present for Cystoscopy Urology Medication:none Antibiotic Allergy:none Blood Thinner:none Lot:[id number] Exp:06/29/2026 Green Building Architect Required: Yes Green Building Architect Services: Green Building Architect Present Green Building Architect Name: [id number] Information Interpreted: non-clinical & clinical Allergies No Known Allergies Allergy (Verified 01/04/24 09:51) HPI Comments Details: 01/04/24--here for office cystoscopy. She was initially seen on 11/23/2023, she denies irritative voiding symptoms. CTAP-10/2023 punctate left kidney stone. Today- Cystoscopy findings: mild trabeculations, no suspicious bladder lesions visualized Plan monitor kidneys, patient encouraged to increase fluid intake and increase citrate in the diet, and lemon to the water. 11/23/23--Latisha is a 53-year-old female who is here as a new patient evaluation for microscopic hematuria. I have discussed reasons for blood in the urine may include but are not limited to kidney stones, cancer in the urinary tract, BPH, or inflammatory conditions of the urinary tract. I have discussed workup to include cystoscopy evaluation. 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 Cognitive needs: No Hearing needs: No Vision needs: No Female Reproductive History Menstrual Age of Menarche: 11 Review of Systems Const All systems reviewed & are unremarkable except as noted in HPI and below Reports no additional complaints Eyes Reports no additional complaints ENT Reports no additional complaints Card Reports no additional complaints Resp Reports no additional complaints GI Reports no additional complaints Reports as per HPI Musc Reports no additional complaints Skin/Breast Reports system reviewed and no additional complaints, except as documented Neuro Reports no additional complaints Psych Reports no additional complaints Endo Reports no additional complaints Russell/Lymph Reports no additional complaints Aller/Immun Reports no additional complaints Office Procedures Cystoscopy Consent Discussed risk and benefit or proposed procedure with the patient. Information consent for procedure given to the patient. Discussed technical aspects, risks, benefits and alternatives in full. Addressed all of the patient's questions and concerns regarding the procedure. The patient demonstrated knowledge and understanding. They wish to proceed with this procedure. Preparation The patient was prepped in the usual manner. A claims adjustor was present and in the room. Genitalia was prepped with betadine solution in a sterile manner. Lidocaine Jelly 2% was placed into the urethra and 16Fr flexible Olympus cystoscope was inserted into the meatus after adequate lubrication. Procedure Time out per protocol performed. Bladder Inspection Bladder Inspection: The bladder was inspected in its entirety with utilization retroflexion displaying: Tumor(s): no suspicious bladder lesions visualized Trabeculation: mild Mucosal Erthema: NA Orifices: normal shape and position Urethra: normal Cystoscopy findings: mild trabeculations, no suspicious bladder lesions visualized [id number] DISPOSABLE SCOPE URO-G FLEXIBLE SCOPE Procedure code (CPT) selection complete Office Meds lidocaine HCl 2 % mucosal jelly in applicator Performing Provider: Guanaco Adan MD Performing Location[facility] [place] [facility] Administered by: Anselmo Benson LPN on 01/04/24 10:08 Dose Route Admin Location Dispensed Lot Number Expiration Date ND Publications Inspector 10 mL intra-urethral 10 mL naproxen 500 mg tablet Performing Provider: Guanaco Adan MD Performing Location: [facility] [place] [facility] Administered by: Anselmo Benson LPN on 01/04/24 10:08 Dose Route Admin Location Dispensed Lot Number Expiration Date NDC Publications Inspector 500 mg PO 1 tab ciprofloxacin HCl 500 mg tablet Performing Provider: Guanaco Adan MD Performing Location: [facility] [place] [facility] Administered by: Anselmo Benson LPN on 01/04/24 10:08 Dose Route Admin Location Dispensed Lot Number Expiration Date NDC Publications Inspector 500 mg PO 1 tab Results AMB Urinalysis, Automated UA Leukoctes 125 Shivani/uL Last Edit by DEWEY Abraham on 01/04/24 10:01 UA Nitrite Negative Last Edit by Concha Lucio [facility] on 01/04/24 10:01 UA Urobilinogen 0.2 mg/dL Last Edit by Concha Lucio [facility] on 01/04/24 10:0 1 UA Protein 0 mg/dL Last Edit by Concha Lucio [facility] on 01/04/24 10:01 UA pH 5.5 Last Edit by Concha Lucio [facility] on 01/04/24 10:01 UA Blood 10 Demetrius/uL Last Edit by Concha Lucio [facility] on 01/04/24 10:01 UA Specific [place] 1.015 Last Edit by Concha Lucio [facility] on 01/04/24 10: 01 UA Ketone Negative Last Edit by Concha Lucio [facility] on 01/04/24 10:01 UA Bilirubin 0 mg/dL Last Edit by Concha Lucio [facility] on 01/04/24 10:01 UA Glucose 0 mg/dL Last Edit by Concha Lucio [facility] on 01/04/24 10:01 Results Reviewed Results Reviewed: Laboratory Last Values Urine pH (Auto) 5.5 01/04/24 10:00 Specific [place] (Auto) 1.015 01/04/24 10:00 Urine Protein (Auto) 0 mg/dL 01/04/24 10:00 Glucose (UA)(Auto) 0 mg/dL 01/04/24 10:00 Urine Ketones (Auto) Negative 01/04/24 10:00 Urine Blood (Auto) 10 Demetrius/uL 01/04/24 10:00 Urine Nitrite (Auto) Negative 01/04/24 10:00 Urine Bilirubin (Auto) 0 mg/dL 01/04/24 10:00 Urine Urobilinogen (Auto) 0.2 mg/dL 01/04/24 10:00 Leukocyte Esterase (Auto) 125 Shivani/uL 01/04/24 10:00 Assessment & Plan Assessment & Plan (1) Kidney stone: Code(s): N20.0 - Calculus of kidney Category: Medical (2) Microscopic hematuria: Code(s): R31.29 - Other microscopic hematuria Category: Medical Plan Microscopic hematuria. She denies irritative voiding symptoms. CTAP-10/2023 punctate left kidney stone. Today- Cystoscopy findings: mild trabeculations, no suspicious bladder lesions visualized Plan monitor kidneys, patient encouraged to increase fluid intake and increase citrate in the diet, and lemon to the water. Orders: Orders AMB Urinalysis Automated Today Z13.9 - Encounter for screening, unspecified AMB Cystoscopy Today N39.0 - Urinary tract infection, site not specified, R31.29 - Other microscopic hematuria US renal BI 9 Months N20.0 - Calculus of kidney Patient Instructions: The patient had an opportunity to ask questions regarding treatment plan. The patient expressed understanding and agreement with the above treatment plan. The patient is aware they should contact our office by phone for worsening of their current condition or the appearance of new symptoms. Compliance is encouraged with any medications and followup testing that is ordered. It is a privilege to be allowed the opportunity to participate in the urologic care of your patient. If you have any questions or concerns regarding treatment for the above conditions please do not hesitate to contact me. The office telephone contact is [phone]. This note is constructed in part using voice recognition software. While every effort has been made to ensure accuracy electronic transaction implementer errors may have been included. Yours sincerely, Guanaco Adan MD Coding Level of Care Code Est Pt Level 3 (71340) Diagnoses Kidney stone N20.0 Microscopic hematuria R31.29 CPT Codes Cystoscopy - CPT: 18639-[id number] ([id number])
== END 2024-01-04 10:48 | disposition home or self-care (01) ==
PROVIDERS: PCP Internal Medicine; Visit Provider Urology
DX: N20.0 Calculus of kidney (principal); R31.29 Other microscopic hematuria; N39.0 Urinary tract infection, site not specified; Z13.9 Encounter for screening, unspecified
CPT/HCPCS: 52000

== ENCOUNTER → 2024-01-04 09:19 | Outpatient (BNVA) | payer BC, SELFPAY | PROVIDERS: PCP Internal Medicine; Visit Provider Urology | DX: R31.29 Other microscopic hematuria (principal); N20.0 Calculus of kidney | CPT/HCPCS: 52000; 81003 ==

== ENCOUNTER 2024-01-26 11:11 | Outpatient (REF) | payer BC, SELFPAY ==
--- NOTE | ~2024-01-26 | US_ITS ---
EXAMINATION: US PELVIS CLINICAL INFORMATION: Benign neoplasm of connective tissue. COMPARISON: CT abdomen and pelvis 10/27/2023. Ultrasound pelvis 08/11/2023. TECHNIQUE: Ultrasound of the pelvis is performed using both transabdominal and transvaginal transducers along with Doppler. Transvaginal imaging is performed due to inadequate visualization transabdominally. FINDINGS: UTERUS: The uterus is anteverted and is again noted to be enlarged measuring 16.7 x 8.3 x 11.2 cm for a volume of 813 mL. Previously the volume was calculated to be 372 mL. The double wall endometrial thickness is 7 mm. Multiple uterine fibroids are again seen with the largest 2 measuring 4.9 x 4.1 x 4.6 cm (previously 5.1 x 4.9 x 4.7 cm) and 4.2 x 3.8 x 3.4 cm (previously 2.6 x 2.3 x 2.2 cm). The largest fibroid is submucosal and the next largest fibroid is subserosal. ADNEXA: Both ovaries are visualized. There is normal color flow to the adnexa. There is no ovarian torsion. There is no pelvic ascites or fluid collection. Right ovary measures 3.3 x 3.2 x 2.7 cm for a volume of 14.9 mL which includes a 2.2 cm benign cyst. Left ovary measures 2.8 x 2.4 x 2.5 cm for a volume of 8.8 mL and appears normal. US/US pelvic and transvaginal IMPRESSION: 1. Enlarged fibroid uterus with interval increase in size of the fibroids. Some of the differences in volume calculations of the uterus may be secondary to technique. 2. Benign right ovarian cyst needs no further followup. Electronically signed by: Vin Wheat MD 01/31/2024 03:50 PM EDT
== END 2024-01-26 11:12 | disposition home or self-care (01) ==
LOC: HO.US 11:11
PROVIDERS: PCP Internal Medicine; Visit Provider Obstetrics & Gynecology
DX: D21.9 Benign neoplasm of connective and other soft tissue, unspecified (principal)
CPT/HCPCS: 76830; 76856

== ENCOUNTER 2024-04-09 12:12 | Outpatient (AMB) | payer BC, SELFPAY ==
--- NOTE | 2024-04-09 12:17 | A.OFFVIS_ITS ---
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 Pelvic Ultrasound done in 02/05 showed the following: The uterus is anteverted and is again noted to be enlarged measuring 16.7 x 8.3 x 11.2 cm for a volume of 813 mL. Previously the volume was calculated to be 372 mL. The double wall endometrial thickness is 7 mm. Multiple uterine fibroids are again seen with the largest 2 measuring 4.9 x 4.1 x 4.6 cm (previously 5.1 x 4.9 x 4.7 cm) and 4.2 x 3.8 x 3.4 cm (previously 2.6 x 2.3 x 2.2 cm). The largest fibroid is submucosal and the next largest fibroid is subserosal. ADNEXA: Both ovaries are visualized. There is normal color flow to the adnexa. There is no ovarian torsion. There is no pelvic ascites or fluid collection. Right ovary measures 3.3 x 3.2 x 2.7 cm for a volume of 14.9 mL which includes a 2.2 cm benign cyst. Left ovary measures 2.8 x 2.4 x 2.5 cm for a volume of 8.8 mL and appears normal. Last co testing in 07/06 was negative Last mammogram in in 02/05 was BI-RADS [facility] Medical History Vitamin D deficiency HTN (hypertension) Uterus fibroma Obesity (BMI 30-39.9) Anemia Pure hypercholesterolemia Surgical History Hx of tubal ligation Status post myomectomy (~2004) History of mammogram Family History Mother Heart problem Colon cancer Father Heart problem Heart attack Sister Breast cancer Social History Housing: Apartment Alcohol intake: never Patient Tobacco Use Status: Never used Tobacco e-Cigarette/Vaping Use: Never Used Second Hand Smoke Exposure: Yes service: No Current occupational status: employed 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 Cognitive needs: No Hearing needs: No Vision needs: No Female Reproductive History Menstrual Age of Menarche: 11 Review of Systems Const All systems reviewed & are unremarkable except as noted in HPI and below Reports as per HPI and Reports no additional complaints GI Reports no additional complaints Reports no additional complaints Physical Exam Vital Signs: BMI result Body Mass Index 33.6 Assessment & Plan Assessment & Plan (1) Uterus fibroma: Code(s): D25.9 - Leiomyoma of uterus, unspecified Category: Medical Qualifiers: Uterine leiomyoma location: unspecified location Qualified Code(s): D25.9 - Leiomyoma of uterus, unspecified Plan: Discussed with the patient the findings on pelvic ultrasound & the risk of myosarcoma; discussed with the patient the options of treatment including expectant management versus hysterectomy; the pros and cons, risks benefits of each approach were discussed with the patient including the fact that in cases of myosarcoma, surgical treatment can lead to early diagnosis and positively affects the prognosis; after further discussion, the patient decided to proceed with expectant management. Will repeat pelvic ultrasound periodically. Instructions given to patient to call in case any of the following occurs: pressure symptoms, abnormal uterine bleeding, pelvic pain; and to schedule a six-months pelvic ultrasound (order placed) and a follow-up appointment . All questions answered, the patient verbalized understanding and agreed with the plan . (2) Ovarian cyst: Code(s): N83.209 - Unspecified ovarian cyst, unspecified side Category: Medical Plan: Discussed with the patient the finding on ultrasound showing simple ovarian cyst, will follow-up with repeat ultrasound in 6 months. Instructions given the patient to schedule an ultrasound and a follow-up appointment in six-month. All questions answered, the patient verbalized understanding. Orders: Orders US pelvic and transvaginal 6 Months D25.9 - Leiomyoma of uterus, unspecified, N83.209 - Unspecified ovarian cyst, unspecified side Coding Level of Care Code Est Pt Level 3 (50318) Diagnoses Uterine leiomyoma, unspecified location D25.9 Uterine leiomyoma location: unspecified location Ovarian cyst N83.209
[2024-04-09 12:18] VITALS: BMI 33.6
== END 2024-04-09 12:54 | disposition home or self-care (01) ==
LOC: HO.HWS 12:12
PROVIDERS: PCP Internal Medicine; Visit Provider Obstetrics & Gynecology
DX: D25.9 Leiomyoma of uterus, unspecified (principal); N83.209 Unspecified ovarian cyst, unspecified side
CPT/HCPCS: 99213

== ENCOUNTER 2024-11-14 13:11 | Outpatient (REF) | payer BC, SELFPAY ==
--- OUTSIDE RECORDS SUMMARY | 2024-10-25 04:10 | XMS_ITS | Continuity of Care Document ---
Author Organization [facility] Address [address] [place] [address] Phone Care Team Providers Care Pit Laborer Name Role Phone Arben GIBBS, DARREL, SIL, Enio Unavailable U navailable Allergies, Adverse Reactions, Alerts Substance Reaction Status Criticality No Known Allergies Active No Inform ation Procedures Procedure Date PT Did Not Receive Services Varithena, Single Truncal Vein - CT & [place] Duplex Scan-extrem Veins; Uni/ CT & [place] J Varithena, Single Truncal Vein - CT & [place] Office/Outpt E&M Established 10 Mins- Te lemedicine CT & [place] Office/Oupt E&M New Pt 30 Mins- CT & [place] Surgical Stockings Thigh Lengt 24 Duplex Scan-extrem Veins; Comp- CT & [place] Advance Directives Directive Yes / No Effective Date File Name No Information Encounters Encounter Description Practice Location Reason(s) For Visit Diagnoses Date Provider Providers Copied on Encounter [facility] [place], [address], [place], [id number], tel:[phone] [facility] No Information Arben GIBBS, SIL ROJO. [address], [address], [facility] [place], [id number] , [place]. tel:[phone] [facility] [place], [address] [place] [address] [address]Suite [place], [id number], [place] tel:[phone] [facility] - [place] [facility] [place] No Information Ab- 5 Arben GIBBS RVT, SIL Steen. [address], [address], [facility], [place], [id number] , [place]. [phone] Referring Provider: Ivan Arrington MD, [address] [place] [address] Dr [address], [place], [address]. tel:[phone] [facility], [address] [place] [address] [address]Suite [place], [id number], [place] tel:[phone] CV[facility] - [facility] Chronic venous hypertension (idiopathic) with inflammation of left lower extremity Oct- 5 Arben GIBBS RVT, SIL Steen. [address] [place] [address], Suite [facility], [facility], [place], [id number] , [place]. tel:[phone] Referring Provider: Ivan Arrington MD, [address] [place] [address] Dr [address], [place], [address]. tel:[phone] [facility], [address] [place] [address] [address] [place], [id number], [place] tel:[phone] CVR - [facility] Encounter for follow-up examination after completed treatment for conditions other than malignant neoplasmChroni c venous hypertension (idiopathic) with other complications of right lower extremity Oct- 5 Arben GIBBS RVT, SIL Steen. [address] [place] [address], [address], [facility], [place], [id number] , [place]. tel:[phone] Referring Provider: Ivan Arrington MD, [address] [place] [address] [address], [place], [address]. tel:[phone] [facility], [address] [place] [address] Dr [address] [place], [id number], [place] tel:[phone] CVR - [facility] Chronic venous hypertension (idiopathic) with inflammation of right lower extremity 5 Arben GIBBS RVT, SIL Steen. [address], [address], [place], [id number] , [place]. [phone] Referring Provider: Ivan Arrington MD, [address], [place], [address]. tel:[phone] [place] [facility], [address] [place] [address] [address], [id number], [place] tel:[phone] [facility] - [place] - [place] No Information 5 Arben GIBBS RVT, SIL Steen. [address] [facility] [address], [address], [place], [id number] , [place]. [phone] Office/Outpt E&M Established 10 Mins- Telemedicine CT & [place] [facility], [address] [place] [address] Dr [address] [place], [id number], [place] tel:[phone] [facility] - [place] Chronic venous hypertension (idiopathic) with other complications of bilateral lower extremityCramp and spasmRestless legs syndromePrurit us, unspecified 5 Arben GIBBS RVT, RPVI Robert. [address] [place] [address], [place], [id number] , [place]. [phone] Referring Provider: Ivan Arrington MD, [address], [place], [address]. tel:[phone] Office/Oupt E&M New Pt 30 Mins- CT & [place] [facility], [address] [place] [address] [address], [id number], [place] tel:[phone] CVR - [facility] Chronic venous hypertension (idiopathic) without complications of bilateral lower extremityRestl ess legs syndromePrurit us, unspecifiedPai n in left legCramp and spasmLocalized edema 4 Arben GIBBS RVT, SIL Steen. [address], [address], [place], [id number] , [place]. [phone] Referring Provider: Ivan Arrington MD, [address] [place] [address] Dr [address], [place], [address]. tel:[phone] [facility], [address], [place], [id number], tel:[phone] [facility] Chronic venous hypertension (idiopathic) with other complications of bilateral lower extremity 4 Arben GIBBS, RVT, RPVI Enio. [address], [address], [place], [place], [id number] , [place]. [phone] Referring Provider: Ivan Arrington MD, [address] [place] [address] Dr [address], [place], [address]. tel:[phone] Family History Family Member Type Diagnosis Age At Onset No Information Payers Payer name Insurance type Covered green party ID Authoriza tiraf(s) [facility] [id number] Social History Type Description Quantity Date Captured Comments Sex Female Smoking Status No Information Chief Complaint And Reason For Visit No Information Reason For Referral Reason For Referral No Information Plan Of Treatment Date Type Action Status Goal Diet education completed Referral Ordered: Weight management: Referral to physician timeframe: 3 Months (related to Body mass index (BMI) 32.0-32.9, adult) ordered Appointment Latisha Molina BOOKED Appointment Latisha Molina BOOKED History Of Present Illness Encounter Date Complaint History Of Prese nt Illness No Information Functional Status Date Functional Assessmen t No Information Instructions Date Instruction Additional Infor matastrid Pre and post instruc tions reviewed and provided Related to Chronic venous hypertension (idiopathic) with other complications of bilateral lower extremity Patient education booklet given Related to Chronic venous hypertension (idiopathic) with other complications of bilateral lower extremity Diet education Related to Body mass index (BMI) 32.0-32.9, adult Giving Encouragement to exercise Related to Body mass index (BMI) 32.0-32.9, adult Lifestyle education Related to B jessica mass index (BMI) 32.0-32.9, adult Patient education booklet given Related to Chronic venous hypertension (idiopathic) without complications of bilateral lower extremity Pre and post instruc tions reviewed and provided Related to Chronic venous hypertension (idiopathic) without complications of bilateral lower extremity Assessments Type Assessment Date No Information Patient Care Teams Name Effective Dates (start - stop) Status Members No Information
--- NOTE | ~2024-11-14 | US_ITS ---
EXAMINATION: US KIDNEY BILATERAL HISTORY: N20.0 - Calculus of kidney TECHNIQUE: Real-time grayscale ultrasound imaging of the kidneys was performed and images were reviewed. COMPARISON: Correlation is made with a CT of the abdomen dated 10/27/2023. FINDINGS: Right kidney: The right kidney measures 11.3 x 4.1 x 4.9 cm. Renal parenchymal echotexture and thickness are normal. There is a 2.3 x 1.7 x 1.9 cm hypoechoic focus at the lower pole with low-level internal echoes, which may represent a cyst with internal debris. There is no hydronephrosis or renal calculi. Left Kidney: The left kidney measures 10.4 x 5.5 x 5.2 cm. Renal parenchymal echotexture and thickness are normal. There are no masses. There is no hydronephrosis or renal calculi. US/US renal BI IMPRESSION: 2.3 x 1.7 x 1.9 cm hypoechoic structure at the lower pole of left kidney which may represent a mildly comminuted cyst. Follow-up is recommended. Otherwise, unremarkable renal ultrasound. Electronically signed by: Enio Kemp MD 11/14/2024 02:01 PM EDT
--- NOTE | ~2024-11-14 | US_ITS ---
EXAMINATION: US PELVIS CLINICAL INFORMATION: Uterine leiomyomas COMPARISON: January 26, 2024 TECHNIQUE: Ultrasound of the pelvis is performed using both transabdominal and transvaginal transducers along with Doppler. Transvaginal imaging is performed due to inadequate visualization transabdominally. FINDINGS: Uterus: The uterus is anteverted and measures 1.8 x 7.0 x 7.1 cm. The double wall endometrial thickness is 4 mm. The uterus is heterogeneous and lobulated. There are multiple uterine leiomyomas. 1. Left fundal subserosal leiomyoma is 3.9 x 3.1 x 3.3 cm, previously 4.5 x 3.6 x 2.6 cm. 2. Posterior body Intramural contacting serosa: 6.5 x 5.3 x 5.7 cm. Previously 0.5 x 4.3 x 4.6 cm. 3. Posterior lower body intramural and subserosal leiomyoma is 2.2 x 1.9 x 2.3, previously not seen 4. Right intramural and subserosal leiomyoma is 1.7 x 1.4 x 1.7 cm, previously not seen. 5. Left upper body intramural leiomyoma is 1.8 x 1.6 x 1.7 cm previously 3.2 x 2.4 x 2.0 cm. Adnexa: Only the right ovary was visualized. There is normal color flow to the adnexa. There is no ovarian torsion. There is no pelvic ascites or fluid collection. Right ovary measures 2.2 x 1.9 x 1.6 cm. Follicles are noted. Left ovary is not visualized US/US pelvic and transvaginal IMPRESSION: Fibroid uterus Electronically signed by: Mike Pulliam MD 11/14/2024 03:31 PM EDT
--- OUTSIDE RECORDS SUMMARY | 2024-11-14 13:18 | XMS_ITS | Encounter Summary ---
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 Name Role Phone Unavailable Primary Care Provider Unavailabl e Encounter Details Date Type Department Care Team (Latest Contact Info) Description 02/19/2021 Abstract [facility] CONVERSIONS Dental, Provider, DDS Social History Tobacco Use Types Packs/Day Years Used Date Smoking Tobacco: Never Assessed Comments Unknown Sex and Gender Information Value Date Recorded Sex Assigned at Female 03/14/2022 10:17 AM EDT Legal Sex Female 10:17 AM EDT Gender Identity Female 03/14/2022 10:17 AM EDT Sexual Orientation Straight 03/14/2022 10 :17 AM EDT documented as of this encounter Plan of Treatment Not on file documented as of this encounter Visit Diagnoses Not on filedocumented in this encounter
== END 2024-11-14 13:12 | disposition home or self-care (01) ==
LOC: HO.US 13:11
PROVIDERS: PCP Internal Medicine; Visit Provider Obstetrics & Gynecology
DX: N83.209 Unspecified ovarian cyst, unspecified side (principal); D25.9 Leiomyoma of uterus, unspecified; N20.0 Calculus of kidney
CPT/HCPCS: 76775; 76830; 76856

== ENCOUNTER → 2024-11-14 13:15 | Outpatient (BNV) | payer BC, SELFPAY | PROVIDERS: PCP Internal Medicine; Visit Provider Radiology Diagnostic Radiology | DX: N83.01 Follicular cyst of right ovary (principal); R93.422 Abnormal radiologic findings on diagnostic imaging of left kidney | CPT/HCPCS: 76775; 76830; 76856 ==

== ENCOUNTER 2024-11-18 15:52 | Outpatient (AMB) | payer BC, SELFPAY ==
--- OUTSIDE RECORDS SUMMARY | 2024-10-25 04:10 | XMS_ITS | Continuity of Care Document ---
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 [address] [facility], [address], [facility] [place], [id number] , [place]. tel:[phone] [facility] [place], [address] [place] [address] [address] [place], [id number], [place] tel:[phone] [facility] - [place] - [place] No Information Ab- 5 Arben GIBBS RVT, SIL Steen. [address] [facility], [address], [facility], [place], [id number] , [place]. [phone] Referring Provider: Ivan Arrington MD, [address] [place] [address] Dr [address], [place], [address]. tel:[phone] [facility], [address] [place] [address] [address] [place], [id number], [place] tel:[phone] CVR - [facility] Chronic venous hypertension (idiopathic) with inflammation of left lower extremity Oct- 5 Arben GIBBS RVT, SIL Steen. [address] [place] [address], Suite [facility], [facility], [place], [id number] , [place]. tel:[phone] Referring Provider: Ivan Arrington MD, [address] [place] [address] Dr [address], [place], [address]. tel:[phone] [facility], [address] [place] [address] [address] [place], [id number], [place] tel:[phone] CVR - [facility] Encounter for follow-up examination after completed treatment for conditions other than malignant neoplasmChroni c venous hypertension (idiopathic) with other complications of right lower extremity Oct- 5 Arben GIBBS RVT, SIL Steen. [address] [place] [address], [address], [facility], [place], [id number] , [place]. [phone] Referring Provider: Ivan Arrington MD, [address] [place] [address] Dr [address], [place], [address]. tel:[phone] [facility], [address] [place] [address] Dr [address] [place]aud [place], [id number], [place] tel:[phone] CVR - [facility] Chronic venous hypertension (idiopathic) with inflammation of right lower extremity 5 Arben GIBBS RVT, SIL Steen. [address] [facility], [address], [place], [id number] , [place]. [phone] Referring Provider: Ivan Arrington MD, [address], [place], [address]. tel:[phone] [place] [facility], [address] [place] [address] Dr [address] 1000[place], [id number], [place] tel:[phone] [facility] - [place] - [place] No Information 5 Arben GIBBS RVT, SIL Steen. [address] [facility], [address], [place], [id number] , [place]. [phone] Office/Outpt E&M Established 10 Mins- Telemedicine CT & [place] [facility], [address] [place] [address] Dr [address] [place] Persadu [place], [id number], [place] tel:[phone] [facility] - [place] Chronic venous hypertension (idiopathic) with other complications of bilateral lower extremityCramp and spasmRestless legs syndromePrurit us, unspecified 5 Arben GIBBS RVT, RPVI Robert. [address] [place] [address], [place], [id number] , [place]. [phone] Referring Provider: Ivan Arrington MD, [address] [facility] [address], [place], [address]. tel:[phone] Office/Oupt E&M New Pt 30 Mins- CT & [place] [facility], [address] [place] [address] [address] 1000[place], [id number], [place] tel:[phone] CVR - [facility] Chronic venous hypertension (idiopathic) without complications of bilateral lower extremityRestl ess legs syndromePrurit us, unspecifiedPai n in left legCramp and spasmLocalized edema 4 Arben GIBBS RVT, SIL Steen. [address] [facility], [address], [place], [id number] , [place]. [phone] Referring Provider: Ivan Arrington MD, [address] [place] [address] Dr [address], [place], [address]. tel:[phone] [facility], [address], [place], [id number], tel:[phone] [facility] Chronic venous hypertension (idiopathic) with other complications of bilateral lower extremity 4 Arben GIBBS, RVT, RPVI Enio. [address] [facility], [address], [place], [place], [id number] , [place]. tel:[phone] Referring Provider: Ivan Arrington MD, [address] [place] [address] Dr [address], [place], [address]. tel:[phone] Family History Family Member Type Diagnosis Age At Onset No Information Payers Payer name Insurance type Covered republican ID Authoriza jacob(s) [facility] [id number] Social History Type Description Quantity Date Captured [...] Information Instructions Date Instruction Additional Infor matastrid Patient education booklet given Related to Chronic venous hypertension (idiopathic) with other complications of bilateral lower extremity Pre and [...]
--- NOTE | 2024-11-17 16:06 | A.OFFVIS_ITS ---
Intake Visit Reasons: US follow up Intake Note: Patient is present for follow up/US * Renal US 11/14 Urology Medication:none Antibiotic Allergy:none Blood Thinner:none Oriental Rug Stretcher Required: Yes Oriental Rug Stretcher Services: Oriental Rug Stretcher Present Oriental Rug Stretcher Name: Yessy--[id number] Information Interpreted: non-clinical & clinical Allergies No Known Allergies Allergy (Verified 11/18/24 16:31) HPI Comments Details: 11/18/2024-previous workup for microscopic hematuria findings punctate left kidney stone noted on CTAP 10/2023 Renal ultrasound-11/14/2024 negative for calculi History of Present Illness - The patient is a 53-year-old female presenting with follow-up for renal ultrasound results and management of kidney stone prevention. - Initially evaluated for microscopic hematuria, a CT scan in October 2023 revealed a punctate left kidney stone. - Advised to increase fluid intake and modify diet to reduce kidney stone risk, including increased citrate intake and a low sodium, low oxalate diet. - Follow-up renal ultrasound on November 15, 2023, showed no renal calculi. - Patient adheres to drinking water with lemon and will continue this practice. - we will continue to monitor at this time follow-up in 1 year, renal ultrasound prior; check urinalysis Results - Renal ultrasound on November 15, 2023: Negative for renal calculi 01/04/24--here for office cystoscopy. She was initially seen on 11/23/2023, she denies irritative voiding symptoms. CTAP-10/2023 punctate left kidney stone. Today- Cystoscopy findings: mild trabeculations, no suspicious bladder lesions visualized Plan monitor kidneys, patient encouraged to increase fluid intake and increase citrate in the diet, and lemon to the water. 11/23/23--Latisha is a 53-year-old female who is here as a new patient evaluation for microscopic hematuria. I have discussed reasons for blood in the urine may include but are not limited to kidney stones, cancer in the urinary tract, BPH, or inflammatory conditions of the urinary tract. I have discussed workup to include cystoscopy evaluation. 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 Cognitive needs: No Hearing needs: No Vision needs: No Female Reproductive History Menstrual Age of Menarche: 11 Review of Systems Const All systems reviewed & are unremarkable except as noted in HPI and below Reports no additional complaints Eyes Reports no additional complaints ENT Reports no additional complaints Card Reports no additional complaints Resp Reports no additional complaints GI Reports no additional complaints Reports as per HPI Musc Reports no additional complaints Skin/Breast Reports system reviewed and no additional complaints, except as documented Neuro Reports no additional complaints Psych Reports no additional complaints Endo Reports no additional complaints Russell/Lymph Reports no additional complaints Aller/Immun Reports no additional complaints Results AMB Urinalysis, Automated UA Leukoctes 0 Shivani/uL Last Edit by Chaya Clifford on 11/18/24 16:34 UA Nitrite Negative Last Edit by Chaya Clifford on 11/18/24 16:34 UA Urobilinogen 17 mg/dL Last Edit by Chaya Clifford on 11/18/24 16:34 UA Protein 1 mg/dL Last Edit by Chaya Clifford on 11/18/24 16:34 UA pH 6.0 Last Edit by Chaya Clifford on 11/18/24 16:34 UA Blood 10 Demetrius/uL Last Edit by Chaya Clifford on 11/18/24 16:34 UA Specific Lincoln 1.020 Last Edit by Chaya Clifford on 11/18/24 16:34 UA Ketone Negative Last Edit by Chaya Clifford on 11/18/24 16:34 UA Bilirubin 0 mg/dL Last Edit by Chaya Clifford on 11/18/24 16:34 UA Glucose 0 mg/dL Last Edit by Chaya Clifford on 11/18/24 16:34 Results Reviewed Results Reviewed: Laboratory Last Values Urine pH (Auto) 6.0 11/18/24 15:42 Specific Lincoln (Auto) 1.020 11/18/24 15:42 Urine Protein (Auto) 1 mg/dL 11/18/24 15:42 Glucose (UA)(Auto) 0 mg/dL 11/18/24 15:42 Urine Ketones (Auto) Negative 11/18/24 15:42 Urine Blood (Auto) 10 Demetrius/uL 11/18/24 15:42 Urine Nitrite (Auto) Negative 11/18/24 15:42 Urine Bilirubin (Auto) 0 mg/dL 11/18/24 15:42 Urine Urobilinogen (Auto) 17 mg/dL 11/18/24 15:42 Leukocyte Esterase (Auto) 0 Shivani/uL 11/18/24 15:42 Assessment & Plan Assessment & Plan (1) Kidney stone: Code(s): N20.0 - Calculus of kidney Category: Medical (2) Microscopic hematuria: Code(s): R31.29 - Other microscopic hematuria Category: Medical Plan Plan - Continue increased fluid intake and dietary modifications to prevent kidney stones. - Schedule follow-up renal ultrasound next year to monitor for kidney stones. - Telehealth FU to review results and discuss further management. Orders: Orders AMB Urinalysis Automated Today Z13.9 - Encounter for screening, unspecified Patient Instructions: The patient had an opportunity to ask questions regarding treatment plan. The patient expressed understanding and agreement with the above treatment plan. The patient is aware they should contact our office by phone for worsening of their current condition or the appearance of new symptoms. Compliance is encouraged with any medications and followup testing that is ordered. It is a privilege to be allowed the opportunity to participate in the urologic care of your patient. If you have any questions or concerns regarding treatment for the above conditions please do not hesitate to contact me. The office telephone contact is [phone]. This note is constructed in part using voice recognition software. While every effort has been made to ensure accuracy form tamper errors may have been included. Yours sincerely, Guanaco Adan MD Scribe Plan - Not visible on output: Patient was informed and verbally consented to the use of an ambient scribe for clinic note documentation during this visit. Coding Level of Care Code Est Pt Level 3 (47707) Diagnoses Kidney stone N20.0 Microscopic hematuria R31.29
--- OUTSIDE RECORDS SUMMARY | 2024-11-18 15:55 | XMS_ITS | Encounter Summary ---
Author Organization [employer] Address [address] [place] [address] [address] [place] [address] Care Team Providers Care Full Service Vending Driver Name Role Phone Unavailable Primary Care Provider Unavailabl e Encounter Details Date Type Department Care Team (Latest Contact Info) Description 02/19/[address] [facility] CONVERSIONS Dental, Provider, DDS Social History Tobacco [...]
== END 2024-11-18 16:48 | disposition home or self-care (01) ==
LOC: HO.HUSH 15:53
PROVIDERS: PCP Internal Medicine; Visit Provider Urology
DX: N20.0 Calculus of kidney (principal); R31.29 Other microscopic hematuria; Z13.9 Encounter for screening, unspecified
CPT/HCPCS: 99213

== ENCOUNTER → 2024-11-18 15:52 | Outpatient (BNVA) | payer BC, SELFPAY | PROVIDERS: PCP Internal Medicine; Visit Provider Urology | DX: R31.29 Other microscopic hematuria (principal); N20.0 Calculus of kidney | CPT/HCPCS: 81003 ==

== ENCOUNTER 2024-12-10 09:51 | Outpatient (AMB) | payer BC, SELFPAY ==
[2024-12-10 10:00] VITALS: BP 126/84; PULSE 73; O2SAT 96; BMI 36.0
--- NOTE | 2024-12-10 10:00 | MHC.PC.OV ---
Vital Signs 12/10/24 10:00 Height 5 ft 4 in Weight 210 lb BMI 36.0 BP 126/84 Blood Pressure Location Lt brachial Position Sitting Pulse 73 Pulse Source Pulse Oximeter Pulse Oximetry (%) 96 Oxygen Delivery Method Room Air Intake Visit Reasons: med f/u Forms Designer Required: No Accompanied by: Self / Same As Patient Allergies No Known Allergies Allergy (Verified 12/10/24 10:32) Medication List - Last Reconciled 12/10/24 by Ivan Arrington MD ferrous sulfate 325 mg PO BID hydrochlorothiazide 12.5 mg PO BID simvastatin 20 mg PO QPM 90 days Tobacco use date assessed: 12/10/24 Dental Screening Dental Screen Date: 12/10/24 Did you have a dental visit in the last 12 months?: Yes Did you have a dental problem in the last 6 months where you did not have access to dental care?: No Was dental information given to patient?: Patient has dentist HPI med f/u HPI Details Patient comes in today for her follow up visit - she was last seen by me over 3 years ago on 12/16/2020 States that she feels okay but she ran out of her iron tablets and Simvastatin about a month ago and will need all of her Rx refilled today She denies any headaches or dizziness Denies any chest pains, no SOB No nausea/vomiting, no abdominal pain No change in bowel habits noted [facility] Medical History (Updated 12/10/24 @ 12:01 by Ivan Arrington MD) Essential hypertension Vitamin D deficiency HTN (hypertension) Uterus fibroma Obesity (BMI 30-39.9) Anemia Pure hypercholesterolemia Surgical History Hx of tubal ligation Status post myomectomy (~2004) History of mammogram Family History Mother Heart problem Colon cancer Father Heart problem Heart attack Sister Breast cancer Social History Housing: Apartment Alcohol intake: never Patient Tobacco Use Status: Never used Tobacco e-Cigarette/Vaping Use: Never Used Second Hand Smoke Exposure: Yes service: No Current occupational status: employed 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 1. Little interest or pleasure in doing things: not at all 2. Feeling down, depressed, or hopeless: not at all 3. Trouble falling or staying asleep, or sleeping too much: not at all 4. Feeling tired or having little energy: not at all 5. Poor appetite or overeating: not at all 6. Feeling bad about yourself - or that you are a failure or have let yourself or your family down: not at all 7. Trouble concentrating on things, such as reading the newspaper or watching television: not at all 8. Moving or speaking so slowly that other people could have noticed. Or the opposite - being so fidgety or restless that you have been moving around a lot more than usual: not at all 9. Thoughts that you would be better off or of hurting yourself in some way: not at all Total score: 0 Depression Screening Interpretation: Negative Depression Screening Done: Yes 04592 - PHQ-9 Billing: Yes Source: Developed by Drs. Enio Varghese, Antonietta Aranda, Chandler Leong and colleagues, with an educational jose miguel from [employer]. Thrive Questionnaire Date Thrive assessed: 12/10/24 I am a: Patient What is your living situation today?: I have a steady place to live Within the past 12 months, did the food you bought not last and you didn't have the money to get more?: Never true Within the past 12 months, did you worry whether your food would run out before you got money to buy more?: Never true Do you have trouble paying for medicines?: No Do you have trouble getting transportation to medical appointments?: No Do you have trouble paying your heating and electricity bill?: No Do you have trouble taking care of your child, family member or friend?: No Do you have trouble with day-to-day activities such as bathing, preparing meals, shopping, managing finances, etc.?: No Are you currently unemployed and looking for a job?: No Are you interested in more education?: No Please select the resources that you would like help with: None Currently or been in a relationship where the following occur: No concerns reported THRIVE Score: 0 AUDIT C Alcohol Use Questionnaire (AUDIT-C) 1. How often do you have a drink containing alcohol?: Never 3. How often do you have six or more drinks on one occasion?: Never Total Score: 0 Score Reviewed/Action Taken: Yes REGGIE-7 AMB Questionnaire REGGIE-7 Date REGGIE - 7 assessed: 12/10/24 Feeling nervous, anxious, or on edge: 0 = Not at all Not being able to stop or control worryin = Not at all Worrying too much about different things: 0 = Not at all Trouble relaxin = Not at all Being so restless that it is hard to sit still: 0 = Not at all Becoming easily annoyed or irritable: 0 = Not at all Feeling afraid as if something awful might happen: 0 = Not at all Total REGGIE-7 score (0-4 normal; 5-9 mild; 10-14 moderate; 15-21 severe): 0 Source: Developed by Drs. Enio Varghese, Antonietta Aranda, Chandler Leong and colleagues, with an educational jose miguel from [employer]. REGGIE-7 Assessment Billing REGGIE-7 Assessment Tool: REGGIE-7 Assessment 28984 Review of Systems Const Denies chills, Denies fatigue, Denies fever(s) and Denies headache(s) ENT Denies dysphagia, Denies dizziness, Denies otalgia, Denies headache(s), Denies neck pain, Denies odynophagia and Denies sore throat Card Denies chest pain, Denies palpitations and Denies dyspnea Resp Denies chest congestion, Denies cough and Denies dyspnea GI Denies abdominal pain, Denies constipation, Denies dysphagia, Denies heartburn, Denies diarrhea, Denies nausea, Denies odynophagia and Denies vomiting Denies difficulty voiding, Denies nocturia, Denies dysuria and Denies urinary urgency Musc Denies back pain and Denies neck pain Skin/Breast Denies rash Neuro Denies dizziness and Denies headache(s) Endo Denies fatigue and Denies palpitations Physical exam (Primary Care) Vital Signs: Last Vital Signs Pulse 73 12/10/24 10:00 BP 126/84 12/10/24 10:00 Pulse Ox 96 12/10/24 10:00 Oxygen Delivery Method Room Air 12/10/24 10:00 BMI result Body Mass Index 36.0 Tobacco/Smoking Status: Tobacco use Status Tobacco use date assessed 12/10/24 12/10/24 10:04 Patient Tobacco Use Status Never used Tobacco 12/10/24 10:04 e-Cigarette/Vaping Use Never Used 12/10/24 10:04 PHQ-9: PHQ-9 Score PHQ-9: Total score 0 12/10/24 10:04 Depression Screening Interpretation: Negative Thrive Assessment: Date of Thrive Assessment Date Thrive assessed 12/10/24 12/10/24 10:04 Currently or been in a relationship where the following occur: No concerns reported Const General: no acute distress and alert HENMT Ears: TM's normal bilaterally and EAC's normal Throat: Yes posterior oropharynx normal and Yes tonsils normal (no TP congestion noted) Neck Neck: Yes supple and No lymphadenopathy Thyroid: Thyroid normal Resp Auscultation: clear to auscultation bilaterally, no rales and no wheezes Cardio Rate: regular rate Rhythm: regular rhythm Heart sounds: no murmurs GI Palpation (GI): Soft to palpation and nontender Auscultation: normal bowel sounds General: Yes no CVA tenderness Back/Spine/Pelvis Back: no CVA tenderness Thoracic/Lumbar Spine: No lumbar spinal tenderness Skin Rashes: no rashes Extrem General: Yes no clubbing, cyanosis or edema Coding Level of Care Code Est Pt Level 4 (82923) Diagnoses Pure hypercholesterolemia E78.00 Essential hypertension I10 Iron deficiency anemia secondary to inadequate dietary iron intake D50.8 Anemia type: iron deficiency Iron deficiency anemia type: inadequate dietary iron intake Obesity (BMI 30-39.9) E66.9 Additional Codes REGGIE-7 Assessment Billing - REGGIE-7 Assessment Tool: REGGIE-7 Assessment 37164 ([id number]) PHQ-9 - 49707 - PHQ-9 Billing: Yes ([id number]) Assessment & Plan Assessment & Plan (1) Pure hypercholesterolemia: Code(s): E78.00 - Pure hypercholesterolemia, unspecified Category: Medical Plan: Reinforced low cholesterol diet Continue Simvastatin 20 mg QD - Rx refilled Will recheck her labs and fasting lipids in 3 months for follow-up (2) Essential hypertension: Code(s): I10 - Essential (primary) hypertension Category: Medical Plan: Reinforced low sodium diet - goal is systolic BP of 120 mm or less Continue HCTZ 12.5 mg BID (3) Anemia: Code(s): D64.9 - Anemia, unspecified Category: Medical Qualifiers: Anemia type: iron deficiency Iron deficiency anemia type: inadequate dietary iron intake Qualified Code(s): D50.8 - Other iron deficiency anemias Plan: Continue Ferrous sulfate 325 mg BID - Rx refilled Will recheck her CBC in 3 months for follow up Will also check iron function studies then for further evaluation - these were all previously ordered but patient never got the chance to get these done yet (4) Obesity (BMI 30-39.9): Code(s): E66.9 - Obesity, unspecified Category: Medical Plan: Reinforced diet/exercise as tolerated/lose weight Plan Follow up in 3 months Orders: Orders Complete Blood Count Auto Diff 3 Months D64.9 - Anemia, unspecified Comprehensive [place]. Panel Fast 3 Months E78.00 - Pure hypercholesterolemia, unspecified Lipid Panel 3 Months E78.00 - Pure hypercholesterolemia, unspecified IRON PROFILE 3 Months D50.9 - Iron deficiency anemia, unspecified TSH reflex Free T4 3 Months E78.00 - Pure hypercholesterolemia, unspecified UA CC w/rflx Micro + Cult 3 Months R30.0 - Dysuria Vitamin D 25-OH Total 3 Months E55.9 - Vitamin D deficiency, unspecified Medications: New ferrous sulfate 325 mg PO BID 180 tabs 1RF 90 days hydrochlorothiazide 12.5 mg PO BID 180 tabs 1RF 90 days Refilled simvastatin 20 mg PO QPM 90 tabs 1RF 90 days
== END 2024-12-10 10:38 | disposition home or self-care (01) ==
LOC: HO.HMCH 09:52
PROVIDERS: PCP Internal Medicine; Visit Provider Internal Medicine
DX: E78.00 Pure hypercholesterolemia, unspecified (principal); I10 Essential (primary) hypertension; E66.9 Obesity, unspecified; Z68.36 Body mass index [BMI] 36.0-36.9, adult; D50.8 Other iron deficiency anemias

== ENCOUNTER → 2024-12-10 09:51 | Outpatient (BNVA) | payer BC, SELFPAY | PROVIDERS: PCP Internal Medicine; Visit Provider Internal Medicine | DX: E78.00 Pure hypercholesterolemia, unspecified (principal); I10 Essential (primary) hypertension; D50.8 Other iron deficiency anemias; E66.9 Obesity, unspecified; Z68.36 Body mass index [BMI] 36.0-36.9, adult; Z79.899 Other long term (current) drug therapy; Z13.31 Encounter for screening for depression; Z13.39 Encounter for screening examination for other mental health and behavioral disorders | CPT/HCPCS: 96127 ==

== ENCOUNTER 2024-12-30 13:48 | Outpatient (AMB) | payer BC, SELFPAY ==
--- OUTSIDE RECORDS SUMMARY | 2024-10-25 04:10 | XMS_ITS | Continuity of Care Document ---
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 [address] [facility], [address], [facility] [place], [id number] , [place]. tel:[phone] [facility] [place], [address] [place] [address] [address]Suite [place], [id number], [place] tel:[phone] [facility] - [place] - [place] No Information Ab- 5 Arben GIBBS RVT, SIL Steen. [address] [facility], [address], [facility], [place], [id number] , [place]. [phone] Referring Provider: Ivan Arrington MD, [address] [place] [address] Dr [address], [place], [address]. tel:[phone] [facility], [address] [place] [address] [address]Suite [place]aud [place], [id number], [place] tel:[phone] CVR - [facility] Chronic venous hypertension (idiopathic) with inflammation of left lower extremity Oct- 5 Arben GIBBS RVT, SIL Steen. [address] [place] [address], Suite [facility], [facility], [place], [id number] , [place]. [phone] Referring Provider: Ivan Arrington MD, [address] [place] [address] Dr [address], [place], [address]. tel:[phone] [facility], [address] [place] [address] [address]Suite [place]aud [place], [id number], [place] tel:[phone] CVR - [facility] Encounter for follow-up examination after completed treatment for conditions other than malignant neoplasmChroni c venous hypertension (idiopathic) with other complications of right lower extremity Oct- 5 Arben GIBBS RVT, SIL Steen. [address] [place] [address], [address], [facility], [place], [id number] , [place]. [phone] Referring Provider: Ivan Arrington MD, [address] [place] [address] Dr [address], [place], [address]. tel:[phone] [facility], [address] [place] [address] Dr [address] [place], [id number], [place] tel:[phone] CVR - [facility] Chronic venous hypertension (idiopathic) with inflammation of right lower extremity 5 Arben GIBBS RVT, SIL Steen. [address] [facility], [address], [place], [id number] , [place]. [phone] Referring Provider: Ivan Arrington MD, [address] [facility] [facility] [address], [place], [address]. tel:[phone] [place] [facility], [address] [place] [address] Dr [address] 1000[place], [id number], [place] tel:[phone] [facility] - [place] - [place] No Information 5 Arben GIBBS RVT, SIL Steen. [address] [facility], [address], [place], [id number] , [place]. [phone] Office/Outpt E&M Established 10 Mins- Telemedicine CT & [place] [facility], [address] [place] [address] Dr [address] [place], [id number], [place] tel:[phone] [facility] - [place] Chronic venous hypertension (idiopathic) with other complications of bilateral lower extremityCramp and spasmRestless legs syndromePrurit us, unspecified 5 Arben GIBBS RVT, RPVI Robert. [address] [place] [address], [place], [id number] , [place]. [phone] Referring Provider: Ivan Arrington MD, [address], [place], [address]. tel:[phone] Office/Oupt E&M New Pt 30 Mins- CT & [place] [facility], [address] [place] [address] [address], [id number], [place] tel:[phone] CVR - [facility] Chronic venous hypertension (idiopathic) without complications of bilateral lower extremityRestl ess legs syndromePrurit us, unspecifiedPai n in left legCramp and spasmLocalized edema 4 Arben GIBBS RVT, SIL Steen. [address] [facility], [address], [place], [id number] , [place]. [phone] Referring Provider: Ivan Arrington MD, [address] [place] [address] Dr [address], [place], [address]. tel:[phone] [facility], [address] [facility] [address], [place], [id number], tel:[phone] [facility] Chronic venous hypertension (idiopathic) with other complications of bilateral lower extremity 4 Arben GIBBS, RVT, RPVI Enio. [address] [facility], [address], [place], [place], [id number] , [place]. tel:[phone] Referring Provider: Ivan Arrington MD, [address] [place] [address] Dr [address], [place], [address]. tel:[phone] Family History Family Member Type Diagnosis Age At Onset No Information Payers Payer name Insurance type Covered democrat ID Authorberthaa jacob(s) [facility] [id number] Social History Type Description Quantity Date Captured Comments Sex Female Smoking Status No Information Chief Complaint And Reason For Visit No Information Reason For Referral Reason For Referral No Information Plan Of Treatment Date Type Action Status Goal Diet education completed Referral Ordered: Weight management: Referral to physician timeframe: 3 Months (related to Body mass index (BMI) 32.0-32.9, adult) ordered History Of Present Illness Encounter Date Complaint History Of Prese nt Illness No Information Functional Status Date Functional Assessmen t No Information Instructions Date Instruction Additional Infor mation Pre and post instruc tions reviewed and provided Related to Chronic venous hypertension (idiopathic) with other complications of bilateral lower extremity Patient education booklet given Related to Chronic venous hypertension (idiopathic) with other complications of bilateral lower extremity Pre and post instruc tions reviewed and provided Related to Chronic venous hypertension (idiopathic) without complications of bilateral lower extremity Patient education booklet given Related to Chronic venous hypertension (idiopathic) without complications of bilateral lower extremity Lifestyle education Related to B jessica mass index (BMI) 32.0-32.9, adult Giving Encouragement to exercise Related to Body mass index (BMI) 32.0-32.9, adult Diet education Related to Body mass index (BMI) 32.0-32.9, adult Assessments Type Assessment Date No Information Patient Care Teams Name Effective Dates (start - stop) Status Members No Information
--- NOTE | 2024-12-30 13:48 | MHC.OFFVIS ---
Intake Visit Reasons: U/S results Embossing Press Operator Apprentice Required: Yes Embossing Press Operator Apprentice Language: Claims Representative Services: Embossing Press Operator Apprentice Present (in person) Embossing Press Operator Apprentice Name: Marivel SAENZ Information Interpreted: non-clinical & clinical Allergies No Known Allergies Allergy (Verified 12/30/24 13:54) HPI Comments Details: The patient is scheduled telehealth visit for follow-up regarding myomas. 11/14/24 pelvic ultrasound showed the following: Uterus: The uterus is anteverted and measures 1.8 x 7.0 x 7.1 cm. The double wall endometrial thickness is 4 mm. The uterus is heterogeneous and lobulated. There are multiple uterine leiomyomas. 1. Left fundal subserosal leiomyoma is 3.9 x 3.1 x 3.3 cm, previously 4.5 x 3.6 x 2.6 cm. 2. Posterior body Intramural contacting serosa: 6.5 x 5.3 x 5.7 cm. Previously 0.5 x 4.3 x 4.6 cm. 3. Posterior lower body intramural and subserosal leiomyoma is 2.2 x 1.9 x 2.3, previously not seen 4. Right intramural and subserosal leiomyoma is 1.7 x 1.4 x 1.7 cm, previously not seen. 5. Left upper body intramural leiomyoma is 1.8 x 1.6 x 1.7 cm previously 3.2 x 2.4 x 2.0 cm. Adnexa: Only the right ovary was visualized. There is normal color flow to the adnexa. There is no ovarian torsion. There is no pelvic ascites or fluid collection. Right ovary measures 2.2 x 1.9 x 1.6 cm. Follicles are noted. Left ovary is not visualized [facility] Medical History Essential hypertension Vitamin D deficiency HTN (hypertension) Uterus fibroma Obesity (BMI 30-39.9) Anemia Pure hypercholesterolemia Surgical History Hx of tubal ligation Status post myomectomy (~2004) History of mammogram Family History Mother Heart problem Colon cancer Father Heart problem Heart attack Sister Breast cancer Social History Housing: Apartment Alcohol intake: never Patient Tobacco Use Status: Never used Tobacco e-Cigarette/Vaping Use: Never Used Second Hand Smoke Exposure: Yes service: No Current occupational status: employed 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 Cognitive needs: No Hearing needs: No Vision needs: No Female Reproductive History Menstrual Age of Menarche: 11 Review of Systems Const All systems reviewed & are unremarkable except as noted in HPI and below Reports as per HPI and Reports no additional complaints GI Reports no additional complaints Reports no additional complaints Telehealth Telehealth Telehealth Platform: Telephone Location of provider rendering services: practice address Location of patient: address on file Patient Identification confirmed using: Name, : Yes Telehealth method: video Patient verbally consented to treatment: Yes Patient verbally consented to billing insurance company: Yes Patient informed of any privacy concerns related to visit: Yes Minutes spent on Phone/Video with Pt.: 13 Assessment & Plan Assessment & Plan (1) Uterus fibroma: Code(s): D25.9 - Leiomyoma of uterus, unspecified Category: Medical Qualifiers: Uterine leiomyoma location: unspecified location Qualified Code(s): D25.9 - Leiomyoma of uterus, unspecified Plan: Discussed with the patient the finding on ultrasound showing multiple myomas. Discussed with the patient the findings on pelvic ultrasound & the risk of myosarcoma; in addition reviewed with the patient that malignancy and pre malignancy cannot be ruled out without hysterectomy for pathological evaluation ; furthermore, explained to the patient the limitation of pelvic ultrasound and endometrial biopsy in the setting. Discussed with the patient the typical symptoms that are caused by myomas including but not limited to pelvic pain, pressure symptoms, abnormal uterine bleeding. In addition discussed with the patient options of treatment for myomas including: Serial ultrasounds periodically to follow-up on the size of the myoma versus surgical treatment including hysterectomy All pros and cons, risks and benefits of all options were discussed with the patient. The patient understands that delay in surgical treatment in case of myosarcoma can affect her prognosis, after further discussion, the patient decided to proceed with definitive surgical management. Discussed with the patient the different types of hysterectomies including, vaginal, laparoscopic assisted vaginal, robotic assisted laparoscopic,& abdominal with BSO. All pros, cons, r/b of each approach were discussed the patient including evidence that morbidity is less and recovery is shorter with minimally invasive approaches to hysterectomy. Discussed with the patient the lack of availability of the robot DaVinci robot and/or minimally invasive site operations manager specialist at [facility]. Will refer to [facility] minimally invasive lead athlete surgery. Instructed the patient to call our office back in case a referral appointment is not scheduled, missed or canceled so that we will assist on rescheduling another appointment, the patient verbalized understanding agreed with the plan. I spent a total of 20 minutes reviewing the chart, talking to the patient via video and documenting in the medical record. Coding Level of Care Code Tele Est Pt Level 3 (59082) Diagnoses Uterine leiomyoma, unspecified location D25.9 Uterine leiomyoma location: unspecified location
--- OUTSIDE RECORDS SUMMARY | 2024-12-30 14:38 | XMS_ITS | Encounter Summary ---
Author Organization [employer] Address [address] [place] [address] [address] [place] [address] Care Team Providers Care Sheet Mill Supervisor Name Role Phone Unavailable Primary Care Provider Unavailabl e Encounter Details Date Type Department Care Team (Latest Contact Info) Description 02/19/2021 Abstract [facility] CONVERSIONS Dental, Provider, DDS Social [...]
== END 2024-12-30 14:48 | disposition home or self-care (01) ==
LOC: HO.HWS 13:48
PROVIDERS: PCP Internal Medicine; Visit Provider Obstetrics & Gynecology
DX: D25.9 Leiomyoma of uterus, unspecified (principal)
CPT/HCPCS: 99213

== ENCOUNTER 2025-02-22 08:55 | Outpatient (REF) | payer BC, SELFPAY ==
--- OUTSIDE RECORDS SUMMARY | 2025-02-22 08:59 | XMS_ITS | Clinical Summary ---
Author Organization [employer] Address [address] [place] [address] 7 [place] [address] Care Team Providers Care Route Sales Delivery Driver Name Role Phone Unavailable Primary Care Provider Unavailabl e Allergies No known active allergies Medications [facility] D3 50 MCG (1999) capsule TOME HAYDEN C PSULA TODOS LOS D 2 Active norethindrone (Aygestin) 5 MG tablet PLEASE SEE ATTACHED FOR DETAILED DIRECTIONS 2 Active pravastatin (Pravachol) 40 MG tablet 0 Active Active Problems Problem Noted Date Diagnosed Date Dental calculus 06/22/2022 Gingival bleeding 06/22/2022 Social History Tobacco Use Types Packs/Day Years Used Date Smoking Tobacco: Never Passive Smoke Exposure: Never Smokeless Tobacco: Never Tobacco Cessation:Counseling Given: Not Answered Comments Unknown Sex and Gender Information Value Date Recorded Sex Assigned at Female 03/14/2022 10:17 AM EDT Legal Sex Female 10:17 AM EDT Gender Identity Female 03/14/2022 10:17 AM EDT Sexual Orientation Straight 03/14/2022 10 :17 AM EDT Last Filed Vital Signs Vital Sign Reading Time Taken Comments Blood Pressure 130/74 07/28/2022 9:55 AM EDT Pulse 76 06/22/2022 2:08 PM EST Temperature - - Respiratory Rate - - Oxygen Saturation - - Inhaled Oxygen Concentration - - Weight - - Height - - Body Mass Index - - Plan of Treatment Health Maintenance Due Date Last Done Comments CT Colonography 1969 Colonoscopy 1969 Colorectal Cancer Screening 1969 Dental X-Ray: Full Mouth 1969 Depression Screening 1969 FIT DNA/Cologuard 1969 FIT 1969 FOBT 1969 HIV Screening 1969 SDOH Screening 1969 Sigmoidoscopy 1969 Disability Screening 1969 Alcohol/Substance Use Screening 1981 Hepatitis C Screening 12/17/1987 Hepatitis B Vaccines (1 of 3 - 19+ 3-dose series) 1988 Pap Smear 1990 Cervical Cancer Screening 12/17/1999 HPV/Cotest 12/17/1999 Mammogram 2009 Pneumococcal Vaccine: 50+ Years (1 of 1 - PCV) 12/17/2019 Zoster Vaccines (1 of 2) 12/17/2019 Dental Oral Exam 12/21/2022 06/22/2022 Dental Prophylaxis 12/21/2022 06/22/2022 Dental X-Ray: Bitewings 06/23/2023 06/22/2022 Tobacco Screening 07/29/2023 07/28/2022 COVID-19 Vaccine (3 - 2024- season) 2025 11/07/2020, 10/17/2020 Influenza Vaccine (#1) 2025 , 02/25/2020, 02/27/2018, Additional history exists DTaP/Tdap/Td Vaccines (2 - Td or Tdap) 07/21/2029 07/22/2019 RSV Patients and Patients Aged 60 years or older (1 - 1-dose 75+ series) 2044 HIB Vaccines Aged Out No longer eligi ble based on patient's age to complete this topic HPV Vaccines Aged Out No longer eligi ble based on patient's age to complete this topic Hepatitis A Vaccines Aged Out No long er eligible based on patient's age to complete this topic IPV Vaccines Aged Out No longer eligi ble based on patient's age to complete this topic Meningococcal B Vaccine Aged Out No l onger eligible based on patient's age to complete this topic Meningococcal Vaccine Aged Out No neel amarilys eligible based on patient's age to complete this topic RSV under 20 months Aged Out No longe r eligible based on patient's age to complete this topic Rotavirus Vaccines Aged Out No longer eligible based on patient's age to complete this topic Procedures Procedure Name Priority Date/Time Associated Diagnosis Comments PERIODIC ORAL EVALUATION - ESTABLISHED PATIENT Routine 06/22/2022 3:30 PM EST Full PROPHYLAXIS - ADULT Routine 023 2:00 PM EST Dental calculus Gingival bleeding BITEWINGS - 4 RADIOGRAPHIC IMAGES Routine 06/22/2022 2:00 PM EST Dental calculus Gingival bleeding from Last 3 Months or Most Recently Relevant to Health Maintenance Insurance
--- OUTSIDE RECORDS SUMMARY | 2025-02-22 08:59 | XMS_ITS | Encounter Summary ---
Author Organization [employer] Address [address] [place] [address] [address] [place] [address] Care Team Providers Care Creative Designer Name Role Phone Unavailable Primary Care Provider Unavailabl e Encounter Details Date Type Department Care Team (Latest Contact Info) Description 02/19/2021 Abstract [facility] CONVERSIONS Dental, Provider, DDS Social History Tobacco [...]
[2025-02-22 09:24] LABS: MANUAL DIFF FLAG NO
[2025-02-22 10:19] LABS: Hematocrit 41.1 % (37.0-47.0); Hemoglobin 12.9 g/dl (12.0-16.0); Imm Gran Abs Auto 0.02 X10*3/uL (0.00-0.03); Imm Gran Pct Auto 0.4 % (0.0-0.4); Lymphocytes Absolute Auto 1.9 X10*3/uL (1.2-4.9); Mean Corpuscular HGB Conc 31.4 g/dl (31.0-35.0); Mean Corpuscular Hemoglobin 26.7 pg (27.0-33.0); Mean Corpuscular Volume 85.1 fL (80.0-98.0); NRBC Abs Auto 0.000 X10*3/uL (0.0-0.012); NRBC Pct Auto 0.0 /100WBC (0.0-0.2); Platelet Count 226 X10*3/uL (160-400); Red Blood Count 4.83 X10*6/uL (4.20-5.50); White Blood Count 4.7 X10*3/uL (4.8-10.8)
[2025-02-22 11:02] LABS: Appearance Urine Clear; Glucose Urine UA Negative (Negative); PH 5.5 (5.0-9.0); Specific Gravity - Urine 1.020 (1.005-1.025); UMIC TRIGGER UACC YES
[2025-02-22 12:06] LABS: Alanine Aminotransferase 25 U/L (0-31); Albumin Level 4.8 g/dL (3.5-5.0); Alkaline Phosphatase 84 U/L (39-117); Anion Gap 11 (12-20); Aspartate Amino Transferase 26 U/L (5-31); Blood Urea Nitrogen 15 mg/dL (9-16); Calcium 9.7 mg/dL (8.4-10.2); Carbon Dioxide 26 mmol/L (22-29); Chloride 106 mmol/L (96-108); Cholesterol 260 mg/dL (<200); Estimated Glomerular Filt Rate > 60; HDL Cholesterol 35 mg/dL (>40); Iron 94 mcg/dL (30-160); Percent Iron Saturation 28 % (15-50); Potassium 4.9 mmol/L (3.3-5.1); Sodium 138 mmol/L (135-145); Total Iron Binding Capacity 332 mcg/dL (228-428); Total Protein 7.8 g/dL (6.5-8.0); Triglycerides 153 mg/dL (<150); Unsaturated Iron Binding 238 ug/dL
== END 2025-02-22 08:56 | disposition home or self-care (01) ==
LOC: HO.LAB 08:55
PROVIDERS: PCP Internal Medicine; Visit Provider Internal Medicine
DX: D50.9 Iron deficiency anemia, unspecified (principal); E78.00 Pure hypercholesterolemia, unspecified; E55.9 Vitamin D deficiency, unspecified; D64.9 Anemia, unspecified
CPT/HCPCS: 36415; 80053; 80061; 81001; 81003; 82306; 83540; 84443; 85025

== ENCOUNTER 2025-02-26 15:03 | Outpatient (AMB) | payer BC, SELFPAY ==
[2025-02-26 15:12] VITALS: BP 140/88; PULSE 65; O2SAT 96; BMI 36.1
--- NOTE | 2025-02-26 15:12 | A.OFFPC_ITS ---
Vital Signs 02/26/25 15:12 02/26/25 16:11 Height 5 ft 4 in Weight 210 lb 6 oz BMI 36.1 BP 140/88 H 180/100 H Blood Pressure Location Lt brachial Lt brachial Position Sitting Sitting Pulse 65 Pulse Source Pulse Oximeter Pulse Oximetry (%) 96 Oxygen Delivery Method Room Air Intake Visit Reasons: Med. Review Wet Silk Hanger Required: No Accompanied by: Self / Same As Patient Allergies No Known Allergies Allergy (Verified 02/26/25 16:12) Medication List - Last Reconciled 02/26/25 by Ivan Arrington MD ferrous sulfate 325 mg PO BID 90 days hydrochlorothiazide 12.5 mg PO BID 90 days simvastatin 20 mg PO QPM 90 days Tobacco use date assessed: 02/26/25 Dental Screening Dental Screen Date: 02/26/25 Did you have a dental visit in the last 12 months?: Yes Did you have a dental problem in the last 6 months where you did not have access to dental care?: No Was dental information given to patient?: Patient has dentist [facility] Medical History Essential hypertension Vitamin D deficiency HTN (hypertension) Uterus fibroma Obesity (BMI 30-39.9) Anemia Pure hypercholesterolemia Surgical History Hx of tubal ligation Status post myomectomy (~2004) History of mammogram Family History Mother Heart problem Colon cancer Father Heart problem Heart attack Sister Breast cancer Social History Housing: Apartment Alcohol intake: never Patient Tobacco Use Status: Never used Tobacco e-Cigarette/Vaping Use: Never Used Second Hand Smoke Exposure: Yes service: No Current occupational status: employed 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 1. Little interest or pleasure in doing things: not at all 2. Feeling down, depressed, or hopeless: not at all 3. Trouble falling or staying asleep, or sleeping too much: not at all 4. Feeling tired or having little energy: not at all 5. Poor appetite or overeating: not at all 6. Feeling bad about yourself - or that you are a failure or have let yourself or your family down: not at all 7. Trouble concentrating on things, such as reading the newspaper or watching television: not at all 8. Moving or speaking so slowly that other people could have noticed. Or the opposite - being so fidgety or restless that you have been moving around a lot more than usual: not at all 9. Thoughts that you would be better off or of hurting yourself in some way: not at all Total score: 0 Source: Developed by Drs. Enio Varghese, Antonietta Aranda, Chandler Leong and colleagues, with an educational jose miguel from [employer]. Thrive Questionnaire Date Thrive assessed: 12/10/24 I am a: Patient What is your living situation today?: I choose not to answer this question Within the past 12 months, did the food you bought not last and you didn't have the money to get more?: I choose not to answer this question Within the past 12 months, did you worry whether your food would run out before you got money to buy more?: I choose not to answer this question Do you have trouble paying for medicines?: No Do you have trouble getting transportation to medical appointments?: No Do you have trouble paying your heating and electricity bill?: I choose not to a nswer this question Do you have trouble taking care of your child, family member or friend?: No Do you have trouble with day-to-day activities such as bathing, preparing meals, shopping, managing finances, etc.?: No Are you currently unemployed and looking for a job?: No Are you interested in more education?: No Please select the resources that you would like help with: None Currently or been in a relationship where the following occur: I choose not to answer THRIVE Score: 0 AUDIT C Alcohol Use Questionnaire (AUDIT-C) 1. How often do you have a drink containing alcohol?: Never 3. How often do you have six or more drinks on one occasion?: Never Total Score: 0 REGGIE-7 AMB Questionnaire REGGIE-7 Date REGGIE - 7 assessed: 12/10/24 Feeling nervous, anxious, or on edge: 0 = Not at all Not being able to stop or control worryin = Not at all Worrying too much about different things: 0 = Not at all Trouble relaxin = Not at all Being so restless that it is hard to sit still: 0 = Not at all Becoming easily annoyed or irritable: 0 = Not at all Feeling afraid as if something awful might happen: 0 = Not at all Total REGGIE-7 score (0-4 normal; 5-9 mild; 10-14 moderate; 15-21 severe): 0 Source: Developed by Drs. Enio Varghese, Antonietta Aranda, Chandler Leong and colleagues, with an educational jose miguel from [employer]. Physical exam (Primary Care) Vital Signs: Last Vital Signs Pulse 65 02/26/25 15:12 BP 180/100 H 02/26/25 16:11 Pulse Ox 96 02/26/25 15:12 Oxygen Delivery Method Room Air 02/26/25 15:12 BMI result Body Mass Index 36.1 Tobacco/Smoking Status: Tobacco use Status Tobacco use date assessed 02/26/25 02/26/25 15:14 Patient Tobacco Use Status Never used Tobacco 02/26/25 15:14 e-Cigarette/Vaping Use Never Used 02/26/25 15:14 PHQ-9: PHQ-9 Score PHQ-9: Total score 0 02/26/25 16:12 Thrive Assessment: Date of Thrive Assessment Date Thrive assessed 12/10/24 02/26/25 15:14 Currently or been in a relationship where the following occur: I choose not to answer Office Procedures Flu Questionnaire Does the patient have a severe egg allergy?: No Does the patient have severe life threatening allergies?: No Does the patient have a fever or illness today?: No Has the patient ever had Guillain-Danvers Syndrome?: No Has the patient ever had any past reaction to a flu shot?: No Immunizations Fluarix 5635-2139 (PF) 45 mcg (15 mcg x 3)/0.5 mL IM syringe Performing Provider: Ivan Arrington MD [facility] Administered by: LETTY Larson on 02/26/25 16:25 Dose Route Admin Location Dispensed Lot Number Expiration Date NDC Prepress Proofer 0.5 mL IM Left Deltoid 0.5 mL [id number] 11/11/25 75575-138-27 [employer] VIS Given Date VIS Provided VIS Publication Date 02/26/25 Single Vaccine 24 Eligibility Eligibility Date Funding Source Not [facility] Eligible 02/26/25 Private Coding Level of Care Code Est Pt Level 4 (51476) Diagnoses Essential hypertension I10 Assessment & Plan Assessment & Plan (1) Essential hypertension: Code(s): I10 - Essential (primary) hypertension Category: Medical Plan Per request, flu vaccine given to the patient today Follow up in 3 months Orders: Orders Complete Blood Count Auto Diff 3 Months D64.9 - Anemia, unspecified Comprehensive Oral. Panel Fast 3 Months E78.00 - Pure hypercholesterolemia, unspecified UA CC w/rflx Micro + Cult 3 Months R30.0 - Dysuria Lipid Panel 3 Months E78.00 - Pure hypercholesterolemia, unspecified TSH reflex Free T4 3 Months E78.00 - Pure hypercholesterolemia, unspecified Vitamin D 25-OH Total 3 Months E55.9 - Vitamin D deficiency, unspecified Influenza [id number] Immunization Today Z23 - Encounter for immunization Medications: New losartan 50 mg PO DAILY 90 tabs 1RF 90 days I10 - Essential (primary) hypertension atorvastatin (Lipitor) 40 mg PO BEDTIME 90 tabs 1RF 90 days Discontinued simvastatin Discontinued Reason: Doctor's Order 20 mg PO QPM 90 days 90 tabs 1RF
[2025-02-26 16:11] VITALS: BP 180/100
== END 2025-02-26 16:29 | disposition home or self-care (01) ==
LOC: HO.HMCH 15:04
PROVIDERS: PCP Internal Medicine; Visit Provider Internal Medicine
DX: Z23 Encounter for immunization (principal)

== ENCOUNTER → 2025-02-26 15:03 | Outpatient (BNVA) | payer BC, SELFPAY | PROVIDERS: PCP Internal Medicine; Visit Provider Internal Medicine | DX: I10 Essential (primary) hypertension (principal); E78.00 Pure hypercholesterolemia, unspecified; D50.8 Other iron deficiency anemias; E55.9 Vitamin D deficiency, unspecified; E66.9 Obesity, unspecified; D64.9 Anemia, unspecified; R30.0 Dysuria; E53.8 Deficiency of other specified B group vitamins; Z23 Encounter for immunization | CPT/HCPCS: 90471; 90656; 96127 ==

== ENCOUNTER 2025-03-03 09:59 | Outpatient (AMB) | payer BC, SELFPAY ==
[2025-03-03 10:08] VITALS: BP 190/98; PULSE 77; TEMP 36.8; O2SAT 95; BMI 35.9
--- NOTE | 2025-03-03 10:08 | AM.OFFWIN_ITS ---
Intake Vital Signs 03/03/25 10:08 Height 5 ft 4 in Weight 209 lb BMI 35.9 BP 190/98 H Blood Pressure Location Rt brachial Position Sitting Pulse 77 Temp 98.2 F Temp Source Oral Pulse Oximetry (%) 95 Intake Visit Reasons: EP Vaginal Bleeding (OBGYN sent here) Patient Tobacco Use Status: Never used Tobacco Allergies No Known Allergies Allergy (Verified 03/03/25 10:09) Do you need a note to return to daycare/school/sports/work: No HPI HPI Comments History of Present Illness Details 54 y/o Female patient who presents to [facility] walk in clinic with c/o Abnormal Uterine Bleeding. Pt has h/o multiple Myomas. She was referred to [facility] for surgical interventions - she has an appointment next week 03/12. She was advised to have Total hysterectomy due to Myomas. Pt presents to the clinic today because she is worried due to the heavy bleeding causing Anemia. She is asking if there is medication that I can prescribe to stop the bleeding. Pt does Take Ferrous Sulfate BID for Anemia. 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 Cognitive needs: No Hearing needs: No Vision needs: No Female Reproductive History Menstrual Age of Menarche: 11 Review of Systems Const All systems reviewed & are unremarkable except as noted in HPI and below Physical Exam Vital Signs: Last Vital Signs Temp 98.2 F 03/03/25 10:08 Pulse 77 03/03/25 10:08 BP 190/98 H 03/03/25 10:08 Pulse Ox 95 03/03/25 10:08 BMI result Body Mass Index 35.9 Const General: no acute distress Nutritional Appearance: obese Orientation/consciousness: patient oriented x3 Limitations: language barrier Resp Effort & Inspection: normal respiratory effort Cardio Rhythm: regular rhythm Other: Pelvic Exam Deferred. Neuro General: patient oriented x3, gait normal and moves all extremities Psych Speech and movement: Normal speech and movement present Assessment & Plan Assessment & Plan (1) Abnormal uterine bleeding: Code(s): N93.9 - Abnormal uterine and vaginal bleeding, unspecified Plan: Advised to f/u with Her FRANCHISE SALES DIRECTOR as scheduled next week. Continue taking Ferrous Sulfate as prescribed. Advised her on alarming signs and symptoms that will require ED admission for possible transmission. Coding Level of Care Code Est Pt Level 4 (05731) Diagnoses Abnormal uterine bleeding N93.9 Time Spent (min) 20
== END 2025-03-03 11:25 | disposition home or self-care (01) ==
PROVIDERS: PCP Internal Medicine; Visit Provider Nurse Practitioner Family
DX: N93.9 Abnormal uterine and vaginal bleeding, unspecified (principal)

== ENCOUNTER 2025-03-06 07:19 | Outpatient (AMB) | payer BC, SELFPAY ==
--- OUTSIDE RECORDS SUMMARY | 2025-03-06 07:20 | XMS_ITS | Clinical Summary ---
Author Organization [employer] Address [address] [place] [address] [address] [place] [address] Care Team Providers Care Hospitality Associate Name Role Phone Unavailable Primary Care Provider [...]
--- OUTSIDE RECORDS SUMMARY | 2025-03-06 07:20 | XMS_ITS | Encounter Summary ---
Author Organization [employer] Address [address] [place] [address] [address] [place] [address] Care Team Providers Care Twisting Department End Finder Name Role Phone Unavailable Primary Care Provider Unavailabl e Encounter Details Date Type Department Care Team (Latest Contact Info) Description 02/19/2021 Abstract [facility] CONVERSIONS Dental, Provider, DDS Social [...]
[2025-03-06 07:31] VITALS: BP 128/88; BMI 34.7
--- NOTE | 2025-03-06 07:31 | A.OFFVIS_ITS ---
Vital Signs 03/06/25 07:31 Height 5 ft 4 in Weight 202 lb BMI 34.7 BP 128/88 Intake Visit Reasons: PMB Morals Squad Police Officer Required: Yes Mor[employer] Police Officer Language: Sash Clamp Operator Services: Morals [employer] Police Officer Present (in person) Mor[employer] Police Officer Name: Marivel SAENZ Information Interpreted: non-clinical & clinical Company Pilot: Company Pilot Present (Marivel SAENZ) Accompanied by: Self / Same As Patient Allergies No Known Allergies Allergy (Verified 03/06/25 07:33) Post menopausal: Yes HPI Comments Details: Presenting after an episode of vaginal bleeding, the patient went to emergency room at [facility] was started on Provera 10 mg p.o. daily Last Pap smear in 07/07 was done at [facility] was negative, no HPV results available Last mammogram in 02/05 at [facility] was BI-RADS 1 Last pelvic ultrasound in 12/06 showed the following: Uterus: The uterus is anteverted and measures 1.8 x 7.0 x 7.1 cm. The double wall endometrial thickness is 4 mm. The uterus is heterogeneous and lobulated. There are multiple uterine leiomyomas. 1. Left fundal subserosal leiomyoma is 3.9 x 3.1 x 3.3 cm, previously 4.5 x 3.6 x 2.6 cm. 2. Posterior body Intramural contacting serosa: 6.5 x 5.3 x 5.7 cm. Previously 0.5 x 4.3 x 4.6 cm. 3. Posterior lower body intramural and subserosal leiomyoma is 2.2 x 1.9 x 2.3, previously not seen 4. Right intramural and subserosal leiomyoma is 1.7 x 1.4 x 1.7 cm, previously not seen. 5. Left upper body intramural leiomyoma is 1.8 x 1.6 x 1.7 cm previously 3.2 x 2.4 x 2.0 cm. Adnexa: Only the right ovary was visualized. There is normal color flow to the adnexa. There is no ovarian torsion. There is no pelvic ascites or fluid collection. Right ovary measures 2.2 x 1.9 x 1.6 cm. Follicles are noted. Left ovary is not visualized The patient was referred to [facility] for surgical management of recurrent postmenopausal bleeding and myomas, appointment scheduled on 03/12/25, the portia boyd is aware [facility] Medical History Essential hypertension Vitamin D deficiency HTN (hypertension) Uterus fibroma Obesity (BMI 30-39.9) Anemia Pure hypercholesterolemia Surgical History Hx of tubal ligation Status post myomectomy (~2004) History of mammogram Family History Mother Heart problem Colon cancer Father Heart problem Heart attack Sister Breast cancer Social History Housing: Apartment Alcohol intake: never Patient Tobacco Use Status: Never used Tobacco e-Cigarette/Vaping Use: Never Used Second Hand Smoke Exposure: Yes service: No Current occupational status: employed 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 Cognitive needs: No Hearing needs: No Vision needs: No Female Reproductive History Menstrual Age of Menarche: 11 Review of Systems Const All systems reviewed & are unremarkable except as noted in HPI and below Physical Exam General: Yes no CVA tenderness External Female Exam: normal external appearance and normal appearance of the urethra Speculum Exam - Vagina: normal appearance of the vagina, normal palpation, no lesions and no masses Speculum Exam - Cervix: normal appearance of the cervix, normal palpation, no lesions, no masses and nontender Bimanual exam- vagina & uterus: normal bimanual exam, normal palpation, uterine size normal, normal palpation, uterine shape normal, No Cervical tenderness present and non-tender Bimanual Exam- Adnexa, other: normal adnexae Back/Spine/Pelvis Back: no CVA tenderness Office Procedures Endometrial Biopsy Details: The patient was counseled regarding the indication and benefits of endometrial sampling to rule out endometrial pathology including not limited to endometrial hyperplasia or endometrial cancer and others; The alternatives (Either do nothing vs. hysteroscopy D&C) & the risks were discussed with the patient including but not limited: pain, uterine perforation, bleeding, infection, possible injury to bladder, bowel, ureter, possible need for blood transfusion with all its possible risks. The patient verbalized understanding all questions answered and signed consent. The patient was placed into the dorsal lithotomy position; a speculum was inserted in the vagina. Using aseptic technique for the procedure, the cervix was cleansed with Betadine. The anterior lip of the cervix was grasped with a single tooth tenaculum. The uterus was sounded to 7 cm with a 4 mm Pipelle was used. Tissues samples were obtained and placed in formalin, in a patient labeled container and sent to the pathology department. At the end of the procedure, there was minimal bleeding noted The patient tolerated the procedure well and was discharged in good condition with the following instructions: Nothing in the vagina until the bleeding stops. No sex until the bleeding stops, to call if any of the following occurs: fever (>100.4), flu-like symptoms, abdominal pain, heavy bleeding, four smelling vaginal discharge. The patient was instructed to schedule a Follow up appointment in 2 weeks to discuss pathology results of the biopsy and treatment options. This note was generated with a voice recognition program. Some errors may have been overlooked during the review of this note. Sometimes these errors may affect the content or meaning of a given sentence. [id number] Biopsy Assessment & Plan Assessment & Plan (1) Postmenopausal bleeding: Comment: Recurrent with uterine myomas Code(s): N95.0 - Postmenopausal bleeding Category: Medical Plan: EMB done, see procedure note. Instructions given the patient to schedule a follow-up appointment within few days and to keep her OBGYN appointment at [facility] on 03/12. All questions answered, the patient verbalized understanding Orders: Orders AMB Endometrial Biopsy Today N95.0 - Postmenopausal bleeding Coding Level of Care Code Est Pt Level 3 (68740) Procedure Only Diagnoses Postmenopausal bleeding N95.0 CPT Codes Endometrial Biopsy - CPT: 39090-[id number] Biopsy ([id number])
== END 2025-03-06 07:49 | disposition home or self-care (01) ==
LOC: HO.HWS 07:19
PROVIDERS: PCP Internal Medicine; Visit Provider Obstetrics & Gynecology
DX: N95.0 Postmenopausal bleeding (principal)
CPT/HCPCS: 58100; 99213

== ENCOUNTER 2025-03-06 07:19 | Outpatient (REF) | payer BC, SELFPAY | END 2025-03-06 07:20 | disposition home or self-care (01) | LOC: HO.LNP 07:19 | PROVIDERS: PCP Internal Medicine; Visit Provider Obstetrics & Gynecology | DX: N95.0 Postmenopausal bleeding (principal) | CPT/HCPCS: 58100; 88305 ==

== ENCOUNTER 2025-03-11 12:31 | Outpatient (AMB) | payer BC, SELFPAY ==
[2025-03-11 13:03] VITALS: BP 144/80; BMI 34.7
--- NOTE | 2025-03-11 13:03 | A.OFFVIS_ITS ---
Vital Signs 03/11/25 13:03 Height 5 ft 4 in Weight 202 lb BMI 34.7 BP 144/80 H Intake Visit Reasons: EMB results Building Maintenance Technician Required: Yes Building Maintenance Technician Language: Behavioral Assistant Services: Building Maintenance Technician Present (in person) Building Maintenance Technician Name: Marivel SAENZ Information Interpreted: non-clinical & clinical Accompanied by: Self / Same As Patient Allergies No Known Allergies Allergy (Verified 03/11/25 13:06) HPI Comments Details: Presenting for follow-up post EMB for recurrent vaginal bleeding. EMB pathology showed the following: Benign inactive endometrium with breakdown, and scant benign endocervical glandular and squamous epithelium; no atypia or carcinoma The patient is complaining of chest tightness [facility] Medical History Essential hypertension Vitamin D deficiency HTN (hypertension) Uterus fibroma Obesity (BMI 30-39.9) Anemia Pure hypercholesterolemia Surgical History Hx of tubal ligation Status post myomectomy (~2004) History of mammogram Family History Mother Heart problem Colon cancer Father Heart problem Heart attack Sister Breast cancer Social History Housing: Apartment Alcohol intake: never Patient Tobacco Use Status: Never used Tobacco e-Cigarette/Vaping Use: Never Used Second Hand Smoke Exposure: Yes service: No Current occupational status: employed 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 Cognitive needs: No Hearing needs: No Vision needs: No Female Reproductive History Menstrual Age of Menarche: 11 Review of Systems Const All systems reviewed & are unremarkable except as noted in HPI and below Reports as per HPI and Reports no additional complaints GI Reports no additional complaints Reports no additional complaints Physical Exam Vital Signs: Last Vital Signs BP 144/80 H 03/11/25 13:03 BMI result Body Mass Index 34.7 Assessment & Plan Assessment & Plan (1) Uterus fibroma: Code(s): D25.9 - Leiomyoma of uterus, unspecified Category: Medical Qualifiers: Uterine leiomyoma location: unspecified location Qualified Code(s): D25.9 - Leiomyoma of uterus, unspecified Plan: The patient is schedule an appointment with minimally invasive Gynecologic surgery at [facility] tomorrow, encouraged to keep her appointment for further management (2) Postmenopausal bleeding: Comment: Recurrent with uterine myomas Code(s): N95.0 - Postmenopausal bleeding Category: Medical Plan: Discussed with the patient the results of the endometrial biopsy. Discussed with the patient the sensitivity, specificity, positive and negative predictive value, of endometrial biopsy in detecting endometrial pathology including but not limited to endometrial hyperplasia, cancer and other pathology; instructed the patient to call in case vaginal bleeding recurs, the next step will be to proceed with a diagnostic hysteroscopy/D&C for further endometrial sampling evaluation to rule out endometrial pathology. All questions answered and the patient verbalized understanding and agreed with the plan. Recommended discontinue Provera (3) Chest tightness: Code(s): R07.89 - Other chest pain Category: Medical Plan: The patient was sent to emergency room on a wheelchair stat Coding Level of Care Code Est Pt Level 3 (86850) Diagnoses Uterine leiomyoma, unspecified location D25.9 Uterine leiomyoma location: unspecified location Postmenopausal bleeding N95.0 Chest tightness R07.89
--- OUTSIDE RECORDS SUMMARY | 2025-03-11 15:47 | XMS_ITS | Clinical Summary ---
Author Organization [facility] Address [address] [place] [address] [address] [place] [address] Care Team Providers Care Manager Quality Name Role Phone Unavailable Primary Care Provider [...]
--- OUTSIDE RECORDS SUMMARY | 2025-03-11 15:47 | XMS_ITS | Encounter Summary ---
Author Organization [facility] Address [address] [place] [address] [address] [place] [address] Care Team Providers Care Network Security Architect Name Role Phone Unavailable Primary Care Provider Unavailabl e Encounter Details Date Type Department Care Team (Latest Contact Info) Description 02/19/2021 Abstract [facility] CONVERSIONS Dental, Provider, DDS Social History Tobacco [...]
== END 2025-03-11 13:15 | disposition home or self-care (01) ==
LOC: HO.HWS 12:31
PROVIDERS: PCP Internal Medicine; Visit Provider Obstetrics & Gynecology
DX: D25.9 Leiomyoma of uterus, unspecified (principal); N95.0 Postmenopausal bleeding; R07.89 Other chest pain
CPT/HCPCS: 99213

== ENCOUNTER 2025-03-11 13:22 | Emergency (ER) | payer BC, SELFPAY ==
--- NOTE | ~2025-03-11 | XR_ITS ---
EXAMINATION: XR CHEST CLINICAL INFORMATION: chest pain COMPARISON: X-ray 07/01/2022 TECHNIQUE: Frontal view of the chest was obtained. FINDINGS: Cardiomediastinal silhouette is within normal limits. Slightly low lung volumes. No focal consolidation, effusion, edema or pneumothorax. No acute osseous findings. XR/XR chest 1V IMPRESSION: No acute pulmonary process seen. Electronically signed by: Selvin Flores MD 03/11/2025 02:12 PM EDT
--- NOTE | 2025-03-11 13:24 | ECG_ITS ---
Test Reason : cp Blood Pressure : */* mmHG Vent. Rate : 72 BPM Atrial Rate : 72 BPM P-R Int : 120 ms QRS Dur : 76 ms QT Int : 376 ms P-R-T Axes : 38 -3 23 degrees QTcB Int : 411 ms Normal sinus rhythm Normal ECG No significant changes when compared with the previous EKG of 01 jul 2022 Referred By: John Braxton Electronically Signed By: JAZZ MORENO
[2025-03-11 13:31] VITALS: BP 165/83; PULSE 68; RESP 18; TEMP 36.7; O2SAT 98; BMI 34.2
--- NOTE | 2025-03-11 13:41 | ED.GENADULT ---
HPI - General Adult General Chief complaint: Chest Pain Stated complaint: chest pain Time Seen by Provider: 03/11/25 15:59 History of Present Illness ED Provider: Benoit OROZCO narrative: The patient is a 54-year-old woman who presents to the emergency room for evaluation of chest discomfort and shortness of breath. She says that about 2 weeks ago she started to experience vaginal bleeding. The patient went to the emergency department 1 week ago at [facility] for abnormal vaginal bleeding and was started on Provera 10 mg daily. On March 06 she was seen at the asphalt roller person office here and had a uterine biopsy. Apparently last night the patient developed chest discomfort and shortness of breath. She had an appointment with a decorator street and building today to discuss the results of her biopsy. She kept the appointment and was told that there were no alarming findings on the biopsy. However at the appointment she was complaining of chest pain and shortness of breath and was referred to the emergency room after the appointment. While waiting to be seen the patient's symptoms have largely resolved. Related Data Home Medications ?Medication ?Instructions ?Recorded ?Confirmed medroxyprogesterone 10 mg tablet 10 mg PO DAILY 03/06/25 Previous Rx's ?Medication ?Instructions ?Recorded ferrous sulfate 325 mg (65 mg 325 mg PO BID 90 days #180 tabs 12/10/24 iron) tablet atorvastatin 40 mg tablet (Lipitor) 40 mg PO BEDTIME 90 days #90 tabs 02/26/25 losartan 50 mg tablet 50 mg PO DAILY 90 days #90 tabs 02/26/25 cholecalciferol (vitamin D3) 50 50 mcg PO DAILY 90 days #90 caps 03/02/25 mcg (2,000 unit) capsule Allergies Allergy/AdvReac Type Severity Reaction Status Date / Time No Known Allergies Allergy Verified 03/11/25 13:39 Review of Systems Review of Systems: Yes all other systems are reviewed and are negative PMFSH Past Medical History Medical History Essential hypertension Vitamin D deficiency HTN (hypertension) Uterus fibroma Obesity (BMI 30-39.9) Anemia Pure hypercholesterolemia Surgical History Hx of tubal ligation Status post myomectomy (~2004) History of mammogram Family History Family History Mother Heart problem Colon cancer Father Heart problem Heart attack Sister Breast cancer Social History Social History Housing: Apartment Alcohol intake: never Patient Tobacco Use Status: Never used Tobacco e-Cigarette/Vaping Use: Never Used Second Hand Smoke Exposure: Yes Advance Directives: No Advance Directives Information Provided: Yes service: No Current occupational status: employed 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 Cognitive needs: No Hearing needs: No Vision needs: No Physical Exam ED Vital Signs: Vital Signs - 24 hr 03/11/25 13:31 03/11/25 14:20 03/11/25 15:33 Temperature 98.1 F 98.0 F Pulse Rate 68 65 70 Respiratory Rate 18 12 13 Blood Pressure 165/83 H 148/85 H 129/76 Pulse Oximetry 98 99 Oxygen Delivery Method Room Air Room Air Oxygen Flow Rate 99 03/11/25 16:07 03/11/25 17:12 Temperature 98.1 F 98.1 F Pulse Rate 69 69 Respiratory Rate 18 18 Blood Pressure 144/97 H 144/97 H Pulse Oximetry 100 100 Oxygen Delivery Method Room Air Room Air Oxygen Flow Rate BMI result Body Mass Index 34.2 Const Other: The patient is awake, alert, pleasant, cooperative. Her symptoms had resolved at the time that I saw her and she looked entirely well. Orientation/consciousness: patient oriented x3 HENMT Other: The face is symmetrical. ?Mucous membranes moist. Eyes Other: Pupils are round equal, conjunctivae are clear, extraocular movements intact Neck Neck: Yes normal visual inspection and Yes full ROM Resp Effort & Inspection: normal respiratory effort Auscultation: clear to auscultation bilaterally Cardio Rate: regular rate Rhythm: regular rhythm Heart sounds: S1 normal heart sound present and S2 normal heart sound present GI Other: Abdomen is soft and nontender Skin Other: The skin is dry and unremarkable Neuro General: patient oriented x3, tone normal, moves all extremities, no focal motor deficits and CN's II-XI intact bilaterally Extrem Other: There is no calf swelling or tenderness. No asymmetry. No peripheral edema. Course Course Course Narrative: RME: 54 yold female with pmh of fibroids presents to the ED for left sided chest pain for the past couple of days. patient sttaes no trauma or recent travel. labs, EkG, and chst ordered Medical Decision Making Medical Decision Making [facility] Narrative: The patient is a 54-year-old woman who presents to the emergency room for evaluation of chest discomfort and shortness of breath. She was sent here from the Gynecology office. She had an appointment with a decorator street and building today to discuss an endometrial biopsy taken last week. The patient was recently on a course of Provera because of abnormal uterine bleeding. She also had an endometrial biopsy last week. The endometrial biopsy was reassuring. However at the Gynecology office she mentioned that she was having chest discomfort and shortness of breath and she was sent to the emergency room. While waiting to be seen the patient has symptoms resolved. She has a normal EKG. Chest x-ray is unremarkable. She has a normal troponin. I do not think she requires a 2nd troponin because she had had symptoms for several hours prior to the drawing of the 1st troponin. She has a normal D-dimer. Overall my impression is that the patient's workup is very reassuring. It is possible her symptoms might have been related to anxiety that she could have experienced because she was going to discuss the results of a biopsy today. In any event her symptoms resolved spontaneously. I think she may be discharged to follow up with the regular doctor or return if worse. Lab Data 03/11/25 13:53 03/11/25 13:53 Labs: Lab Results 03/11/25 03/11/25 Range/Units 13:53 16:10 WBC 7.1 (4.8-10.8) X10*3/uL RBC 4.35 (4.20-5.50) X10*6/uL Hgb 11.7 L (12.0-16.0) g/dl Hct 36.4 L (37.0-47.0) % MCV 83.7 (80.0-98.0) fL MCH 26.9 L (27.0-33.0) pg MCHC 32.1 (31.0-35.0) g/dl RDW 13.2 (11.0-16.0) % Plt Count 254 (160-400) X10*3/uL MPV 10.0 (9.4-12.3) fL Immature Gran % (Auto) 0.1 (0.0-0.4) % Neut % (Auto) 67.5 (45-73) % Lymph % (Auto) 26.3 (20-40) % [place] % (Auto) 5.1 (2-11) % Eos % (Auto) 0.7 (0-4) % Baso % (Auto) 0.3 (0-2) % Lymph # (Auto) 1.9 (1.2-4.9) X10*3/uL [place] # (Auto) 0.4 (0.1-1.2) X10*3/uL Eos # (Auto) 0.1 (0.0-0.4) X10*3/uL Baso # (Auto) 0.0 (0.0-0.2) X10*3/uL Abs Immat Gran (auto) 0.01 (0.00-0.03) X10*3/uL Absolute Neuts (auto) 4.8 (2.0-8.3) x10*3/uL Absolute Nucleated RBC 0.000 (0.0-0.012) X10*3/uL Nucleated RBC % (auto) 0.0 (0.0-0.2) /100WBC PT 12.1 (10.9-12.4) SEC INR 1.1 (0.9-1.1) APTT 28.4 (26.7-34.1) SEC D-Dimer High Sensitivty 214 NG/ML Sodium 139 (135-145) mmol/L Potassium 4.4 (3.3-5.1) mmol/L Chloride 108 (96-108) mmol/L Carbon Dioxide 23 (22-29) mmol/L Anion Gap 12 (12-20) BUN 19 H (9-16) mg/dL Creatinine 1.00 (0.5-1.4) mg/dL Estim Creat Clear Calc 69.1 Estimated GFR 58 Random Glucose 96 (60-115) mg/dL Calcium 10.2 (8.4-10.2) mg/dL Total Bilirubin 0.4 (0.0-1.0) mg/dL AST 42 H (5-31) U/L ALT 27 (0-31) U/L Alkaline Phosphatase 94 (39-117) U/L Troponin I High Sens < 2.7 (<3.5-17.0) ng/L NT-Pro-B Natriuret Pep 318.7 H (<300) pg/mL Total Protein 7.9 (6.5-8.0) g/dL Albumin 4.9 (3.5-5.0) g/dL Beta HCG, Quant < 2 mIU/mL Urine Color Yellow Urine Appearance Clear Urine pH 5.0 (5.0-9.0) Ur Specific [place] 1.015 (1.005-1.025) Urine Protein Negative (Neg-Trace) mg/dL Urine Glucose (UA) Negative (Negative) mg/dL Urine Ketones Trace (Negative) mg/dL Urine Blood Negative (Negative) Urine Nitrite Negative (Negative) Ur Leukocyte Esterase Trace H (Negative) Urine RBC 0-2 (0-2) /HPF Urine WBC 0-5 (0-5) /HPF Ur Squamous Epith Cells 0-2 (0-2) /HPF Urine Bacteria None Seen (None Seen) Hyaline Casts 0-2 (0-2) /LPF Independent Interpretation I performed an independent interpretation of an: EKG Interpretation: EKG at 13:31 shows normal sinus rhythm at 72 beats per minute. It is a normal EKG. Discharge Plan Discharge Clinical Impression: Chest pain, Shortness of breath Patient Disposition: Home, Self-Care Additional Instructions: Your testing in the emergency room today seems very reassuring. There is no sign of a heart attack. There is no sign of a blood clot in your lungs. Your chest x-ray is clear. Please make a follow up appointment with your regular primary care doctor to discuss this episode further. However if at any point you feel significantly worse please return to the emergency room for additional evaluation. Prescriptions: No Action ferrous sulfate 325 mg (65 mg iron) tablet 325 mg PO BID 90 Days Qty: 180 1RF atorvastatin [Lipitor] 40 mg tablet 40 mg PO BEDTIME 90 Days Qty: 90 1RF losartan 50 mg tablet 50 mg PO DAILY 90 Days Qty: 90 1RF cholecalciferol (vitamin D3) 50 mcg (2,000 unit) capsule 50 mcg PO DAILY 90 Days Qty: 90 3RF medroxyprogesterone 10 mg tablet 10 mg PO DAILY Referrals: Ivan Arrington MD [Primary Care Provider, Internal Medicine] Interventions: ED Discharge Assessment Last Done: 03/11/25 17:12 Discharge Date/Time: 03/11/25 17:13 Print Language: Turkmen
[2025-03-11 13:57] LABS: MANUAL DIFF FLAG NO
[2025-03-11 13:59] LABS: Hematocrit 36.4 % (37.0-47.0); Hemoglobin 11.7 g/dl (12.0-16.0); Imm Gran Abs Auto 0.01 X10*3/uL (0.00-0.03); Imm Gran Pct Auto 0.1 % (0.0-0.4); Lymphocytes Absolute Auto 1.9 X10*3/uL (1.2-4.9); Mean Corpuscular HGB Conc 32.1 g/dl (31.0-35.0); Mean Corpuscular Hemoglobin 26.9 pg (27.0-33.0); Mean Corpuscular Volume 83.7 fL (80.0-98.0); NRBC Abs Auto 0.000 X10*3/uL (0.0-0.012); NRBC Pct Auto 0.0 /100WBC (0.0-0.2); Platelet Count 254 X10*3/uL (160-400); Red Blood Count 4.35 X10*6/uL (4.20-5.50); White Blood Count 7.1 X10*3/uL (4.8-10.8)
[2025-03-11 14:08] LABS: INTERNATIONAL NORM RATIO 1.1 (0.9-1.1); Prothrombin Time 12.1 SEC (10.9-12.4)
[2025-03-11 14:10] LABS: Partial Thromboplastin Time 28.4 SEC (26.7-34.1)
[2025-03-11 14:20] VITALS: BP 148/85; PULSE 65; RESP 12
--- NOTE | 2025-03-11 14:20 | PC.NURSE ---
Pt roomed changed and placed on full monitor- VSS c/o chest pain left chest SALEH at forehead both 5/10 and a sore bottom lip- possible sore noted right inner lip.
[2025-03-11 14:23] LABS: Alanine Aminotransferase 27 U/L (0-31); Albumin Level 4.9 g/dL (3.5-5.0); Alkaline Phosphatase 94 U/L (39-117); Anion Gap 12 (12-20); Aspartate Amino Transferase 42 U/L (5-31); Blood Urea Nitrogen 19 mg/dL (9-16); Calcium 10.2 mg/dL (8.4-10.2); Carbon Dioxide 23 mmol/L (22-29); Chloride 108 mmol/L (96-108); Creatinine Clr Calc Pharmacy 69.1; Estimated Glomerular Filt Rate 58; NT Pro B Type Natriuretic Pept 318.7 pg/mL (<300); Potassium 4.4 mmol/L (3.3-5.1); Sodium 139 mmol/L (135-145); Total Protein 7.9 g/dL (6.5-8.0); Troponin-I High Sensitivity < 2.7 ng/L (<3.5-17.0)
[2025-03-11 15:33] VITALS: BP 129/76; PULSE 70; RESP 13; TEMP 36.7; O2SAT 99
--- NOTE | 2025-03-11 15:49 | PC.NURSE ---
Pt resting quietly. NAD. unlabored resp. skin pwd. NSR on monitor. complaining only of lip pain. no chest pain at this time. Has received EKG though it is not visable in electronic chart at this time.
[2025-03-11 16:07] VITALS: BP 144/97; PULSE 69; RESP 18; TEMP 36.7; O2SAT 100
[2025-03-11 16:19] LABS: Appearance Urine Clear; Glucose Urine UA Negative (Negative); PH 5.0 (5.0-9.0); Specific Gravity - Urine 1.015 (1.005-1.025); UMIC TRIGGER UACC YES
[2025-03-11 16:34] LABS: D Dimer High Sensitivity 214 NG/ML
[2025-03-11 17:12] VITALS: BP 144/97; PULSE 69; RESP 18; TEMP 36.7; O2SAT 100
== END 2025-03-11 17:13 | disposition home or self-care (01) ==
PROVIDERS: Physician Assistant; Emergency Provider Emergency Medicine; PCP Internal Medicine
DX: R07.9 Chest pain, unspecified (principal); R06.02 Shortness of breath; I10 Essential (primary) hypertension
CPT/HCPCS: 36415; 71045; 80053; 81001; 83880; 84484; 84702; 85025; 85379; 85610; 85730; 93005; 99283; 99284

== ENCOUNTER → 2025-03-11 13:24 | Outpatient (BNV) | payer BC, SELFPAY | PROVIDERS: Emergency Provider Emergency Medicine; PCP Internal Medicine; Visit Provider Internal Medicine | DX: R07.9 Chest pain, unspecified (principal) | CPT/HCPCS: 93010 ==

== ENCOUNTER → 2025-03-11 13:39 | Outpatient (BNV) | payer BC, SELFPAY | PROVIDERS: PCP Internal Medicine; Visit Provider Radiology Diagnostic Ultrasound | DX: R07.9 Chest pain, unspecified (principal) | CPT/HCPCS: 71045 ==